=== PATIENT | male | born 1990 | race Caucasian/White ===

== ENCOUNTER 2021-01-10 16:33 | Inpatient (IN) | payer SELFPAY ==
[2021-01-10] VITALS (7 sets, daily range): BP systolic 128–150; BP diastolic 81–84; PULSE 109–144; RESP 16–24; TEMP 38.3–39.5; O2SAT 96–99; BMI 46.1
--- NOTE | 2021-01-10 16:55 | ED_ITS ---
HPI - Abdominal Pain General: Chief Complaint: Abdominal Pain Stated Complaint: ABDOMINAL PAIN Time Seen by Provider: 01/10/21 16:39 Source: patient Mode of arrival: ambulatory History of Present Illness: HPI narrative: 30-year-old male presenting with left-sided abdominal pain since 11 PM last night, associated with fever, chills, nausea. Over the course of the next 12 hours, the pain has migrated to his left upper quadrant and periumbilical area. He had a BM earlier today that contained bright red blood.. Is worse with any movement, better with staying still. He has not eaten or drank since this morning at 930. No previous diagnosis of diverticulosis or other disorders of the colon. Associated Symptoms: Reports fever(s), hematochezia and vomiting; Denies diarrhea and dysuria Review of Systems General: Reports: 10 or more systems reviewed and unremarkable except in HPI and below Const: Reports: fever(s), chills, body aches, change in appetite, fatigue and diaphoresis Eyes: Denies: change in vision, blurry vision or blind spots ENMT: Denies: odynophagia or hoarseness Card: Denies: chest pain, palpitations or irregular heart rhythm Resp: Reports: pain on inspiration; Denies: dyspnea, productive cough or wheezing GI: Reports: abdominal pain, nausea, vomiting and hematochezia; Denies: diarrhea : Denies: difficulty urinating, dysuria, urinary frequency or urinary u rgency Musc: Reports: back pain Skin/Breast: Denies: rash, pruritus or erythema Neuro: Denies: headache(s), numbness in extremities or weakness in extremities Endo: Denies: polyuria or polydipsia Efra/Lymph: Denies: easy bruising or easy bleeding [facility] ED PFSH: Social History Smoking and tobacco status: former smoker Alcohol intake: current Alcohol intake frequency: few times a month Substance/Drug Use: never Physical Exam Const: COMMON NORMALS: patient oriented x3 GENERAL APPEARANCE: cooperative, in distress and ill appearing NUTRITIONAL APPEARANCE: obese HENMT: COMMON NORMALS: normocephalic and hearing grossly normal bilaterally HEAD & SCALP: normocephalic FACE & SINUS: normal facial exam and face symmetric Eye: COMMON NORMALS: Equal, round and reactive pupils present, EOMs intact bilaterally, conjunctivae normal and no scleral icterus CONJUNCTIVA: Yes co njunctivae normal PUPIL: Yes Equal, round and reactive pupils present Neck/C-Spine: COMMON NORMALS: full ROM, no lymphadenopathy and supple Chest: COMMONS NORMALS: normal inspection of the chest and normal palpation of entire chest wall Resp: COMMON NORMALS: clear to auscultation bilaterally EFFORT & INSPECTION: Yes able to speak in complete sentences, Yes abnormal respiratory pattern and Yes labored (Abdominal pain with breathing) AUSCULTATION: clear to auscultation bilaterally Cardio: COMMON NORMALS: regular rate, S1 normal heart sound present and S2 normal heart sound present RATE: regular rate and tachycardic HEART SOUNDS: S1 normal heart sound present and S2 normal heart sound present GI: COMMON NORMALS: Soft to palpation AUSCULTATION: Yes Hypoactive bowel sounds present PALPATION: Yes Soft to palpation, Yes Tenderness to palpation present (GI) (Generalized) Details: LLQ and LUQ, Yes Guarding due to palpation present (GI), No Rigid due to palpation, No Hernia present, No Ascites present, No Abdominal wall crepitus present, No Carnett's sign positive and Yes Rebound tenderness present Details: periumbilical and diffuse Extremity: GENERAL: Yes normal exam except as noted Neuro: COMMON NORMALS: patient oriented x3, CN's II-XII intact bilaterally, moves all extremities and no focal motor deficits Skin: COMMON NORMALS: no rashes or lesions noted, no wounds, turgor normal and no jaundice GENERAL SKIN EXAM: no rashes or lesions noted and turgor normal Course Vital Signs: Vital signs: Vital Signs Temperature 103.1 F H 01/11/21 00:21 Pulse Rate 125 H 01/11/21 00:21 Respiratory Rate 22 H 01/11/21 00:24 Blood Pressure 111/74 01/11/21 00:21 Pulse Oximetry 92 01/11/21 00:21 MDM - Abdominal Pain MDM Narrative: Medical decision making narrative: 30-year-old male with worsening abdominal pain since 11 PM last night, with fever, nausea and vomiting. Acute peritoneal signs on exam. CT shows inflammatory changes and small volume extraluminal gas in the retroperitoneum on the left, suspected causes perforated descending colonic diverticulosis. No abscess. Broad-spectrum antibiotics?Zosyn and Flagyl, IV fluid resuscitation, analgesia, General surgery consulted?Dr. Velez will admit to his service for continued IV antibiotics and monitoring. No definite surgical intervention planned at this point. Differential Diagnosis: Differential diagnosis abdominal pain: Likely ab dominal pain, acute appendicitis, diverticulitis, gastroenteritis, pancreatitis and small bowel obstruction Lab Data: Labs: Lab Results 01/10/21 01/10/21 01/10/21 Range/Units 17:50 17:50 17:50 WBC 11.5 H (4.0-10.0) 10^3/ uL RBC 4.32 (4.1-5.3) 10^6/u L Hgb 14.4 (11.7-16.6) g/dL Hct 43.4 (42.0-52.0) % MCV 100.5 H (80-94) fL MCH 33.3 (28.0-34.0) pg MCHC 33.2 (30.0-36.0) g/dL RDW 15.8 H (12.1-15.1) % Plt Count 152 (130-400) 10^3/c mm MPV 10.0 (7.4-10.4) fL Neut % (Auto) 92.2 % Lymph % (Auto) 3.8 % Beadle % (Auto) 3.3 % Eos % (Auto) 0.1 % Baso % (Auto) 0.2 % Neut # (Auto) 10.59 H (1.8-7.7) 10^3/u L Lymph # (Auto) 0.4 L (0.8-4.8) 10^3/u L Beadle # (Auto) 0.4 (0.2-0.9) 10^3/u L Eos # (Auto) 0.0 (0.0-0.8) 10^3/u L Baso # (Auto) 0.0 (0.0-0.1) 10^3/u L Nucleated RBC % (a uto) 0 % Nucleated RBCs # 0.0 /100WBC PT 14.40 (12.1-14.9) SECO NDS INR 1.09 (0.8-1.2) APTT 27.2 (23.9-36.7) SECO NDS Sodium 134 L (136-145) mmol/L Potassium 3.8 (3.5-5.1) mmol/L Chloride 98 (98-107) mmol/L Carbon Dioxide 25 (22-29) mmol/L Anion Gap 14.8 (5-19) BUN 6 (6-20) mg/dL Creatinine 0.7 (0.7-1.2) mg/dL GFR Calculation 130.7 H (90-130) mL/min Glucose 158 H (65-115) mg/dL Calculated Osmolal ity 279 L (285-295) mOsm/k g Calcium 8.4 L (8.5-10.5) mg/dL Total Bilirubin 0.7 (0.15-1.2) mg/dL AST 32 (0-40) U/L ALT 45 H (0-41) U/L Alkaline Phosphata se 51 (40-130) IU/L C-Reactive Protein 131.6 H (0.0-4.9) mg/L Total Protein 6.7 (6.6-8.7) g/dL Albumin 3.9 (3.5-5.2) g/dL Globulin 2.8 (1.3-4.6) g/dL Discharge Plan Discharge Patient Disposition: Admitted As Inpatient Admit Provider: Jake Velez Clinical Impression: Peritonitis, acute generalized Diverticulitis of colon with perforation Qualifiers: Diverticulitis bleeding: unspecified bleeding status Qualified Code(s): K57.20 - Diverticulitis of large intestine with perforation and abscess without bleeding Condition: Stable Coding Level of Care Code 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
--- NOTE | 2021-01-10 16:56 | PC.NURSE ---
Read and agree with assessment
--- NOTE | 2021-01-10 17:21 | CTR_ITS ---
PROCEDURE INFORMATION: Exam: CT Abdomen And Pelvis With Contrast Exam date and time: 01/10/2021 5:49 PM Age: 30 years old Clinical indication: Abdominal pain; Prior surgery; Surgery type: Appy; Additional info: Llq and suprapubic pain x1 day, n/v, fever TECHNIQUE: Imaging protocol: Computed tomography of the abdomen and pelvis with contrast. Radiation optimization: All CT scans at this facility use at least one of these dose optimization techniques: automated exposure control; mA and/or kV adjustment per patient size (includes targeted exams where dose is matched to clinical indication); or iterative reconstruction. Contrast material: OMNI 300; Contrast volume: 95 ml; Contrast route: INTRAVENOUS (IV); COMPARISON: No relevant prior studies available. RADIATION DOSE METRICS: Total DLP (mGy-cm): 1981.38 FINDINGS: Lungs: Lung bases are clear. Liver: The liver is normal. Gallbladder and bile ducts: The gallbladder is normal. There is no biliary dilation. Pancreas: The pancreas is unremarkable. Spleen: The spleen is unremarkable. Adrenal glands: The adrenal glands are unremarkable. Kidneys and ureters: The kidneys are unremarkable. No hydronephrosis or stones. No ureteral dilation. Stomach and bowel: The stomach is unremarkable. The small bowel is nondilated. The colon is largely decompressed. There is mild diverticulosis of the distal descending and sigmoid colon. There may be focal diverticulitis in the mid descending colon (see axial series 2, image 52, coronal series 602, image 52, sagittal series 601, image 26). The stomach is unremarkable. The small bowel is nondilated. Appendix: The appendix is absent. Intraperitoneal space: There is no free air or significant intraperitoneal free fluid. Retroperitoneal space: There is edema, fascial thickening and trace extraluminal gas in the retroperitoneal space on the left involving the pericolic gutter and perirenal fascia. There is a descending colonic diverticulum with surrounding edema adjacent to the site of retroperitoneal gas suggesting possible diverticular rupture as its origin. There is no fluid collection to suggest abscess. Vasculature: The aorta is unremarkable. There is no aneurysm. The portal, splenic and superior mesenteric veins are patent. Lymph nodes: Unremarkable. No enlarged lymph nodes. Urinary bladder: The urinary bladder is unremarkable. Reproductive: The prostate and seminal vesicles are unremarkable. Bones/joints: The lumbar spine is unremarkable. There is mild degenerative disease of both hips. The pelvis and proximal femora are intact. Soft tissues: The abdominal wall is intact. CT/CT abdomen pelvis w con* [id number] IMPRESSION: 1. Inflammatory changes and small volume extraluminal gas in the retroperitoneum on the left. The suspected cause is perforated descending colonic diverticulosis, although the findings are not definitive. 2. No abscess. Radiation Dose CTDIVOL = (mGy): DLP = 1981.38 (mGy-cm)
[2021-01-10] MEDS: iohexol 300 mg/mL 100 mL Btl IV (17:53)
[2021-01-10 17:55] LABS: Basophils % 0.2 %; Eosinophils % 0.1 %; Hematocrit 43.4 % (42.0-52.0); Hemoglobin 14.4 g/dL (11.7-16.6); Lymphocytes # 0.4 10^3/uL (0.8-4.8); Lymphocytes % 3.8 %; Mean Corpuscular HGB Conc 33.2 g/dL (30.0-36.0); Mean Corpuscular Hemoglobin 33.3 pg (28.0-34.0); Mean Corpuscular Volume 100.5 fL (80-94); Monocytes # 0.4 10^3/uL (0.2-0.9); Monocytes % 3.3 %; Neutrophils # 10.59 10^3/uL (1.8-7.7); Neutrophils % 92.2 %; Nucleated Red Blood Cells % 0 %; Platelet Count 152 10^3/cmm (130-400); Red Blood Count 4.32 10^6/uL (4.1-5.3); Red Cell Distribution Width 15.8 % (12.1-15.1); White Blood Count 11.5 10^3/uL (4.0-10.0)
[2021-01-10 18:11] LABS: INR 1.09 (0.8-1.2)
[2021-01-10 18:12] LABS: Partial Thromboplastin Time 27.2 SECONDS (23.9-36.7)
[2021-01-10 18:16] LABS: Alanine Aminotransferase 45 U/L (0-41); Albumin Level 3.9 g/dL (3.5-5.2); Alkaline Phosphatase 51 IU/L (40-130); Anion Gap 14.8 (5-19); Aspartate Amino Transferase 32 U/L (0-40); Blood Urea Nitrogen 6 mg/dL (6-20); Calcium 8.4 mg/dL (8.5-10.5); Carbon Dioxide 25 mmol/L (22-29); Chloride 98 mmol/L (98-107); Globulin 2.8 g/dL (1.3-4.6); Glomerular Filtration Rate 130.7 mL/min (90-130); Glucose 158 mg/dL (65-115); Osmolality Calculated 279 mOsm/kg (285-295); Potassium 3.8 mmol/L (3.5-5.1); Sodium 134 mmol/L (136-145); Total Bilirubin 0.7 mg/dL (0.15-1.2); Total Protein 6.7 g/dL (6.6-8.7)
[2021-01-10] MEDS: sodium chloride 0.9% 1,000 ML 999 ML IV ×2 (18:30)
[2021-01-10] MEDS: fentaNYL 50 mcg/mL INJ 2mL 150 MCG IVP (18:35)
[2021-01-10] MEDS: ondansetron 2 mg/ML SDV 2 mL 4 MG IVP (18:43)
--- NOTE | 2021-01-10 18:44 | PM.HP ---
Providers/Chief Complaint Admitting Physician: Jake Velez MD Chief Complaint: ABDOMINAL PAIN History of Present Illness Mr. Deepak Meyers is a pleasant 30 year old male with history of morbid obesity with BMI 46.2 and weighs 350 pounds. Patient started to encounter left-sided abdominal pain around 11 PM yesterday and had reported history of blood in stool, with association of low-grade temperature and chills. Pain describes it more as sharp and has been more on the left side and towards the suprapubic and right lower quadrant. And left flank. As the pain got worse presented to the emergency department of [facility] where blood work showed leukocytosis and a CT scan of the abdomen and pelvis was done that showed findings below: Lungs: Lung bases are clear. Liver: The liver is normal. Gallbladder and bile ducts: The gallbladder is normal. There is no biliary dilation. Pancreas: The pancreas is unremarkable. Spleen: The spleen is unremarkable. Adrenal glands: The adrenal glands are unremarkable. Kidneys and ureters: The kidneys are unremarkable. No hydronephrosis or stones. No ureteral dilation. Stomach and bowel: The stomach is unremarkable. The small bowel is nondilated. The colon is largely decompressed. There is mild diverticulosis of the distal descending and sigmoid colon. There may be focal diverticulitis in the mid descending colon (see axial series 2, image 52, coronal series 602, image 52, sagittal series 601, image 26). The stomach is unremarkable. The small bowel is nondilated. Appendix: The appendix is absent. Intraperitoneal space: There is no free air or significant intraperitoneal free fluid. Retroperitoneal space: There is edema, fascial thickening and trace extraluminal gas in the retroperitoneal space on the left involving the pericolic gutter and perirenal fascia. There is a descending colonic diverticulum with surrounding edema adjacent to the site of retroperitoneal gas suggesting possible diverticular rupture as its origin. There is no fluid collection to suggest abscess. Vasculature: The aorta is unremarkable. There is no aneurysm. The portal, splenic and superior mesenteric veins are patent. Lymph nodes: Unremarkable. No enlarged lymph nodes. Urinary bladder: The urinary bladder is unremarkable. Reproductive: The prostate and seminal vesicles are unremarkable. Bones/joints: The lumbar spine is unremarkable. There is mild degenerative disease of both hips. The pelvis and proximal femora are intact. Soft tissues: The abdominal wall is intact. CT/CT abdomen pelvis w con* [id number] IMPRESSION: 1. Inflammatory changes and small volume extraluminal gas in the retroperitoneum on the left. The suspected cause is perforated descending colonic diverticulosis, although the findings are not definitive. 2. No abscess. Patient reports no history of colonoscopy before and he does have history of chronic constipation but sometimes he gets bouts of diarrhea, last time he had a bowel movement and passed gas was about a day or so ago. She denies any nausea or vomiting at this point General surgery was consulted for further evaluation Patient was examined and evaluated in room #4 in the emergency depart Review of Systems General: Reports: 10 or more systems reviewed and unremarkable except in HPI and below Medications/Allergies Home Medications Medication Instructions Recorded Confirmed Last Taken Type acetaminophen [Tylenol Extra 1,000 mg PO PRN 01/10/21 01/10/21 01/10/21 09:00 History Strength] albuterol sulfate [ProAir HFA] 2 puff INHALATION Q4H PRN 01/10/21 01/10/21 Unknown History aspirin 325 mg PO PRN 01/10/21 01/10/21 Unknown History Allergies Allergy/AdvReac Type Severity Reaction Status Date / Time beans Allergy ALGY-Anaphy Uncoded 01/10/21 18:46 laxis PFSH Acute PFSH: Social History Smoking and tobacco status: former smoker Alcohol intake: current Alcohol intake frequency: few times a month Substance/Drug Use: never Vitals/I&O/Wt Last Vital Signs Temp 100.9 F H 01/10/21 16:37 Pulse 110 H 01/10/21 16:51 Resp 24 H 01/10/21 18:35 BP 150/84 01/10/21 16:51 Pulse Ox 99 01/10/21 16:51 Weight last 48 hrs Weight 350 lb Physical Exam Narrative: EXAM NARRATIVE: Patient is conscious alert oriented X3 BMI 46.2 Head and neck examination PERRLA no masses no cervical lymphadenopathy no jaundice Cardiac examination audible S1-S2 no murmurs no gallops no arrhythmias Chest is clear bilateral,abscence of Rhonchi or wheezes,no surgical emphysema Abdomen tenderness towards the left side of the abdomen and the suprapubic area and right lower quadrant in addition to the left flank. Patient demonstrates picture of peritonism. Morbidly obese Extremities no cyanosis no clubbing no edema Data : 01/11/21 02:05 01/11/21 02:05 A&P Assessment and plan (1) Diverticulitis of colon with perforation: After thorough history physical examination reviewing the chart and images with my personal interpretation, current condition reflects a contained perforation of one of the diverticular pockets of the descending colon and contained at the retroperitoneal compartment. we will plan to have the patient on n.p.o. status IV fluid in the form of LR 150 mL/h Zosyn and Flagyl IV repeated physical examination Repeat labs in the morning Telemetry Strict I's and O's Pharmacologic DVT prophylaxis in the form of Lovenox 40 mg subcutaneous daily At this point patient should benefit from the broad-spectrum antibiotics and conservative measures likely a contained perforation due to perforated descending colon diverticulitis. Assurance and education All questions have been answered and all concerns have been addressed to patient's satisfaction. Status: Acute Qualifiers: Diverticulitis bleeding: unspecified bleeding status Qualified Code(s): K57.20 - Diverticulitis of large intestine with perforation and abscess without bleeding Attestations Medical Necessity Statement*: Inpatient hospitalization for parenteral antimicrobial therapy and pain control with repeated physical examination Time Spent in Patient Care: (>than 50% of time spent in counselling and/or direct pt care on unit). 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
[2021-01-10 18:47] LABS: C Reactive Protein 131.6 mg/L (0.0-4.9)
[2021-01-10] MEDS: piperacillin-tazobactam 4.5 GM in sodium chloride 0.9% (plus) 50 ML IV (18:50)
[2021-01-10] MEDS: metroNIDAZOLE IV 500 MG/100 ML PREMIX 100 MG IV (19:42)
[2021-01-10] MEDS: enoxaparin 40 mg/0.4 mL Syringe SUBCUT (19:50)
[2021-01-10 19:51] LABS: Lactate (Lactic Acid level) 2.2 mmol/L (0.5-2.2)
[2021-01-10] MEDS: lactated ringers 1,000 ML 150 ML IV (21:43)
[2021-01-10] MEDS: morphine 4 mg/mL SDV 1 mL 2 MG IVP (21:44)
[2021-01-10] MEDS: acetaminophen 325 mg Tablet 650 MG PO (21:45)
[2021-01-10 22:07] LABS: Add Urine Microscopic? NO
[2021-01-10] MEDS: HYDROmorphone 1 mg/mL INJ 1 mL IVP (22:20)
[2021-01-10 22:30] LABS: Bilirubin Urine Neg (Negative); Blood Urine Neg (Negative); Glucose Urine UA Norm (Normal); Ketones Urine 1+ (Negative); Leukocyte Esterase Urine Negative (Negative); Nitrate Urine Negative (Negative); Protein Urine Neg (Negative); Urine Appearance Clear (CLEAR); Urine Color Yellow (Yellow); Urobilinogen Urine Norm (Negative); pH Urine 5 (5-7)
[2021-01-11] VITALS (20 sets, daily range): BP systolic 101–134; BP diastolic 70–86; PULSE 97–130; RESP 16–22; TEMP 36.6–39.5; O2SAT 92–96
[2021-01-11] MEDS: HYDROmorphone 1 mg/mL INJ 1 mL IVP ×9 (00:24→22:25)
[2021-01-11] MEDS: metroNIDAZOLE IV 500 MG/100 ML PREMIX 100 MG IV ×4 (00:27→18:15)
[2021-01-11 02:19] LABS: Basophils % 0.3 %; Eosinophils % 0.1 %; Hematocrit 41.3 % (42.0-52.0); Hemoglobin 13.7 g/dL (11.7-16.6); Lymphocytes # 0.5 10^3/uL (0.8-4.8); Lymphocytes % 5.8 %; Mean Corpuscular HGB Conc 33.2 g/dL (30.0-36.0); Mean Corpuscular Volume 99.5 fL (80-94); Mean Platelet Volume 10.3 fL (7.4-10.4); Monocytes # 0.5 10^3/uL (0.2-0.9); Monocytes % 6.7 %; Neutrophils % 86.8 %; Nucleated Red Blood Cells % 0 %; Platelet Count 130 10^3/cmm (130-400); Red Blood Count 4.15 10^6/uL (4.1-5.3); White Blood Count 7.9 10^3/uL (4.0-10.0)
[2021-01-11 02:34] LABS: Alanine Aminotransferase 35 U/L (0-41); Albumin Level 3.5 g/dL (3.5-5.2); Alkaline Phosphatase 39 IU/L (40-130); Anion Gap 14.3 (5-19); Aspartate Amino Transferase 21 U/L (0-40); Blood Urea Nitrogen 8 mg/dL (6-20); Calcium 8.3 mg/dL (8.5-10.5); Carbon Dioxide 25 mmol/L (22-29); Chloride 97 mmol/L (98-107); Globulin 2.8 g/dL (1.3-4.6); Glomerular Filtration Rate 97.8 mL/min (90-130); Glucose 129 mg/dL (65-115); Osmolality Calculated 276 mOsm/kg (285-295); Potassium 3.3 mmol/L (3.5-5.1); Sodium 133 mmol/L (136-145); Total Bilirubin 0.7 mg/dL (0.15-1.2); Total Protein 6.3 g/dL (6.6-8.7)
[2021-01-11 02:35] LABS: Lactate (Lactic Acid level) 1.7 mmol/L (0.5-2.2)
[2021-01-11] MEDS: piperacillin-tazobactam 3.375 GM in sodium chloride 0.9% (plus) 50 ML IV (02:57)
[2021-01-11] MEDS: ondansetron 2 mg/ML SDV 2 mL 4 MG IVP (03:00)
[2021-01-11] MEDS: lactated ringers 1,000 ML 150 ML IV ×3 (05:27→18:14)
[2021-01-11] MEDS: lactated ringers 1,000 ML 999 ML IV (06:17)
--- NOTE | 2021-01-11 06:17 | PM.PN ---
Subjective Subjective: Interval history: Patient feels better since the index episode of pain 30 hours ago and responding slowly to IV fluid resuscitation and parenteral antimicrobial therapy. Maintaining marginal urine output and having loose nonbloody diarrheal stools. Spiked a temperature of 103 and blood cultures were sent patient reports that his baseline heart rate runs between 90 and 100 per his primary care provider and he does monitor that at home but there is no medications being prescribed for him. Normalization of lactic acid 1.7 and trending down of leukocytosis with normalization to 7.9 Vitals/I&O/Wt Last Vital Signs Temp 100.9 F H 01/11/21 03:45 Pulse 125 H 01/11/21 03:45 Resp 18 01/11/21 05:29 BP 106/74 01/11/21 03:45 Pulse Ox 94 01/11/21 03:45 01/10/21 01/10/21 01/11/21 14:59 22:59 06:59 Intake Total 2270 / 2270 1340 / 3610 Output Total 0 / 0 275 / 275 Balance 2270 / 2270 1065 / 3335 Weight last 48 hrs Weight 350 lb Physical Exam Narrative: EXAM NARRATIVE: Patient is conscious alert oriented X3 BMI 46.2 Head and neck examination PERRLA no masses no cervical lymphadenopathy no jaundice Cardiac examination audible S1-S2 no murmurs no gallops no arrhythmias Chest is clear bilateral,abscence of Rhonchi or wheezes,no surgical emphysema Abdomen tenderness towards the left side of the abdomen and less toward suprapubic area and right lower quadrant in addition to the left flank. Morbidly obese Extremities no cyanosis no clubbing no edema Data : 01/11/21 02:05 01/11/21 02:05 Micro: Microbiology 01/10/21 22:15 Blood Culture - Preliminary Blood SPECIMEN COLLECTED 01/10/21 17:55 Blood Culture - Preliminary Blood SPECIMEN COLLECTED A&P Assessment and plan (1) Diverticulitis of colon with perforation: Continue n.p.o. status with ice chips bolus of LR 1 L IV fluid in the form of LR 150 mL/h Zosyn 4.5 g every 8 hours and Flagyl IV 500 mL every 6 hours repeated physical examination monitor blood work continue telemetry Strict I's and O's continue pharmacologic DVT prophylaxis in the form of Lovenox 40 mg subcutaneous daily resume albuterol 2 puff inhalation every 4 hours as needed Assurance and education All questions have been answered and all concerns have been addressed to patient's satisfaction. Status: Acute Qualifiers: Diverticulitis bleeding: unspecified bleeding status Qualified Code(s): K57.20 - Diverticulitis of large intestine with perforation and abscess without bleeding Attestations Medical Necessity Statement*: Continue inpatient hospitalization for parenteral antimicrobial therapy and repeated physical examination and blood work. 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
[2021-01-11] MEDS: LORazepam 0.5 mg Tablet PO ×4 (10:36→22:26)
[2021-01-11] MEDS: piperacillin-tazobactam 4.5 GM in sodium chloride 0.9% (plus) 50 ML IV ×2 (10:37→18:16)
--- NOTE | 2021-01-11 14:10 | PC.CHAP ---
Pastoral Care Encounter/Spiritual Assessment Type of Contact [] Declined convex grinder operator visit [] Patient/Family/Request visit [] Outpatient visit [] Follow-up visit [] Physician referral [] Code/Alert [xx] Routine visit [] Staff referral [] Actively dying [] Patient sleeping [] Family support [] [] Out of room [] Palliative care [] [] Receiving care in room [] Pre-surgical visit [] Trauma [] Long length of stay [] ICU visit [] Other: Relational/Emotional Strength [xx] Patient feels connected with others/family/visitors/staff [] Distress [] Loneliness/isolation [] Abandonment Spirituality of Patient [xx] Person of Laura [] Attends Oriental Orthodox of their Laura [xx] Believes in Prayer [xx] Reads Bible or Faith materials [] There are Spiritual issues to be addressed Pc Maintenance Technician Interventions [xx] Prayer [xx] Active listening [xx] Non-anxious presence [] Spiritual/emotional support [] Crisis/trauma care [] Spiritual counseling [] Bereavement support [] Provided bereavement packet [xx] Provided Bible/devotional materials [] Provided toy/stuffed animal, coloring book to patient or family member [] Provided Communion [] Anointing/[place] [] Salvation [xx] Completed spiritual assessment [] Other: Impact on Illness or Injury [] Angry [xx] Fearful [xx] Anxious [] Often cries [] Exhaustion [] Unable to work [] Unable to attend sabianism [] Unable to walk/stand [] Unable to read [] Unable to drive [] Unable to eat/drink [] Unable to sleep [] Unable to be with family [] Patient intubated [] Other: Summary Patient is ffearful for 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 He is allso fearful that if surgery results in permanent colostomy that he will never get a girlfriend/ and have his own family. Patient acceptede [employer] devotional. Time spent with patient 10 minutes
[2021-01-11] MEDS: enoxaparin 40 mg/0.4 mL Syringe SUBCUT (20:00)
[2021-01-12] VITALS (17 sets, daily range): BP systolic 115–125; BP diastolic 66–71; PULSE 110–132; RESP 15–18; TEMP 36–38.7; O2SAT 92–96
[2021-01-12] MEDS: HYDROmorphone 1 mg/mL INJ 1 mL IVP ×9 (00:44→23:18)
[2021-01-12] MEDS: lactated ringers 1,000 ML 150 ML IV ×3 (02:11→17:48)
[2021-01-12] MEDS: metroNIDAZOLE IV 500 MG/100 ML PREMIX 100 MG IV ×4 (02:11→22:00)
[2021-01-12] MEDS: LORazepam 0.5 mg Tablet PO ×3 (02:20→21:02)
[2021-01-12] MEDS: piperacillin-tazobactam 4.5 GM in sodium chloride 0.9% (plus) 50 ML IV ×3 (02:21→20:56)
[2021-01-12] MEDS: acetaminophen 325 mg Tablet 650 MG PO (04:30)
[2021-01-12 05:34] LABS: Basophils % 0.4 %; Eosinophils % 0.3 %; Hematocrit 37.3 % (42.0-52.0); Hemoglobin 12.1 g/dL (11.7-16.6); Lymphocytes # 0.6 10^3/uL (0.8-4.8); Lymphocytes % 7.5 %; Mean Corpuscular HGB Conc 32.4 g/dL (30.0-36.0); Mean Corpuscular Hemoglobin 33.2 pg (28.0-34.0); Mean Corpuscular Volume 102.2 fL (80-94); Mean Platelet Volume 10.4 fL (7.4-10.4); Monocytes # 0.6 10^3/uL (0.2-0.9); Monocytes % 6.9 %; Neutrophils # 6.55 10^3/uL (1.8-7.7); Nucleated Red Blood Cells % 0 %; Platelet Count 126 10^3/cmm (130-400); Red Blood Count 3.65 10^6/uL (4.1-5.3); Red Cell Distribution Width 15.8 % (12.1-15.1)
[2021-01-12 06:11] LABS: Alanine Aminotransferase 20 U/L (0-41); Albumin Level 2.7 g/dL (3.5-5.2); Alkaline Phosphatase 44 IU/L (40-130); Anion Gap 11.6 (5-19); Aspartate Amino Transferase 12 U/L (0-40); Blood Urea Nitrogen 7 mg/dL (6-20); Carbon Dioxide 28 mmol/L (22-29); Chloride 95 mmol/L (98-107); Glucose 116 mg/dL (65-115); Osmolality Calculated 271 mOsm/kg (285-295); Potassium 3.6 mmol/L (3.5-5.1); Sodium 131 mmol/L (136-145); Total Bilirubin 0.5 mg/dL (0.15-1.2); Total Protein 5.7 g/dL (6.6-8.7)
[2021-01-12 06:12] LABS: Lactate (Lactic Acid level) 1.2 mmol/L (0.5-2.2)
--- NOTE | 2021-01-12 07:43 | PM.PN ---
Subjective Subjective: Interval history: Patient overall feels better and started to have his appetite back. Continues to pass gas and having nonbloody loose stools .Describes his pain is more towards the left side and not generalized as it used to be.No acute events overnight. Adequate urine output. Medications: Reviewed: Yes Vitals/I&O/Wt Last Vital Signs Temp 97.6 F 01/12/21 07:00 Pulse 117 H 01/12/21 07:00 Resp 18 01/12/21 07:00 BP 115/68 01/12/21 07:00 Pulse Ox 94 01/12/21 07:00 01/11/21 01/12/21 01/12/21 22:59 06:59 14:59 Intake Total 1250 / 3182.5 1510 / 4692.5 Output Total 450 / 650 300 / 950 Balance 800 / 2532.5 1210 / 3742.5 Weight last 48 hrs Weight 350 lb Physical Exam Narrative: EXAM NARRATIVE: Patient is conscious alert oriented X3 BMI 46.2 Head and neck examination PERRLA no masses no cervical lymphadenopathy no jaundice Cardiac examination audible S1-S2 no murmurs no gallops no arrhythmias Chest is clear bilateral,abscence of Rhonchi or wheezes,no surgical emphysema Abdomen much less tenderness towards the left side of the abdomen, no appreciated tenderness of the other abdominal compartments. Morbidly obese Extremities no cyanosis no clubbing no edema Data : 01/12/21 05:14 01/12/21 05:14 Micro: Microbiology 01/10/21 17:55 Blood Culture - Preliminary Blood NEGATIVE TO DATE 01/10/21 22:15 Blood Culture - Preliminary Blood NEGATIVE TO DATE A&P Assessment and plan (1) Diverticulitis of colon with perforation: We will start the patient slowly on clear liquid diet We will continue IV fluid in the form of LR 150 mL/h Continue Zosyn 4.5 g every 8 hours and Flagyl IV 500 mL every 6 hours repeated physical examination monitor blood work continue telemetry Strict I's and O's continue pharmacologic DVT prophylaxis in the form of Lovenox 40 mg subcutaneous daily resume albuterol 2 puff inhalation every 4 hours as needed Encourage ambulation Assurance and education All questions have been answered and all concerns have been addressed to patient's satisfaction. Status: Acute Qualifiers: Diverticulitis bleeding: unspecified bleeding status Qualified Code(s): K57.20 - Diverticulitis of large intestine with perforation and abscess without bleeding Attestations Medical Necessity Statement*: Patient will require to continue inpatient hospitalization for parenteral antimicrobial therapy and repeated physical examination and with appropriate clinical monitoring of patient's progress. Time Spent in Patient Care: (>than 50% of time spent in counselling and/or direct pt care on unit). 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
[2021-01-12] MEDS: ondansetron 2 mg/ML SDV 2 mL 4 MG IVP ×2 (09:25→20:28)
[2021-01-12] MEDS: HYDROcodone-acetaminophen 5-325 mg Tablet 1 TAB PO ×2 (13:41→20:25)
[2021-01-12] MEDS: enoxaparin 40 mg/0.4 mL Syringe SUBCUT (20:25)
[2021-01-13] VITALS (20 sets, daily range): BP systolic 107–134; BP diastolic 66–85; PULSE 110–135; RESP 16–20; TEMP 36.1–38.6; O2SAT 91–94
[2021-01-13] MEDS: HYDROmorphone 1 mg/mL INJ 1 mL IVP ×6 (01:16→17:17)
[2021-01-13] MEDS: metroNIDAZOLE IV 500 MG/100 ML PREMIX 100 MG IV ×2 (04:44→11:24)
[2021-01-13] MEDS: lactated ringers 1,000 ML 150 ML IV ×2 (04:44→14:33)
[2021-01-13] MEDS: acetaminophen 325 mg Tablet 650 MG PO (04:44)
[2021-01-13] MEDS: piperacillin-tazobactam 4.5 GM in sodium chloride 0.9% (plus) 50 ML IV ×2 (05:53→14:18)
--- NOTE | 2021-01-13 06:09 | ECG_ITS ---
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 Measurements Intervals [place] Rate: 110 P: 53 NE: 176 QRS: 58 QRSD: 98 T: 49 QT: 325 QTc: 440 Interpretive Statements SINUS TACHYCARDIA ABNORMAL RHYTHM ECG No previous ECG available for comparison Electronically Signed On 01-13-2021 22:47:46 CDT by Jack Wallace M.D. [email or web address]
--- NOTE | 2021-01-13 06:57 | P.PN_ITS ---
Subjective Subjective: Interval history: Patient describes the pain is more localized towards the left flank and left lower abdomen. Still continues to run fevers and tachycardic. Yet continues to have good urine output. Started clear liquid diet yesterday but had some nausea so we will switch back to n.p.o. with ice chips Medications: Reviewed: Yes Vitals/I&O/Wt Last Vital Signs Temp 101.4 F H 01/13/21 04:43 Pulse 125 H 01/13/21 04:00 Resp 20 H 01/13/21 04:46 BP 107/66 01/13/21 04:00 Pulse Ox 94 01/13/21 04:00 01/12/21 01/12/21 01/13/21 14:59 22:59 07:59 Intake Total 2410 / 2410 1870 / 4280 1250 / 5530 Output Total 1400 / 1400 450 / 1850 Balance 2410 / 2410 470 / 2880 800 / 3680 Physical Exam Narrative: EXAM NARRATIVE: Patient is conscious alert oriented X3 BMI 46.2 Head and neck examination PERRLA no masses no cervical lymphadenopathy no jaundice Cardiac examination audible S1-S2 no murmurs no gallops no arrhythmias Chest is clear bilateral,abscence of Rhonchi or wheezes,no surgical emphysema Abdomen more localized tenderness towards the left lower side of the abdomen and left flank with some erythema noticed at the left side of the abdomen and flank of the skin. Morbidly obese Extremities no cyanosis no clubbing no edema Data : 01/13/21 06:34 01/13/21 06:34 A&P Assessment and plan (1) Diverticulitis of colon with perforation: We will repeat the CT scan of the abdomen and pelvis with IV contrast to compare and to rule out potential underlying abscess formation. We switch IV fluids to D5 and half normal +20 KCl at 125 Continue Zosyn 4.5 g every 8 hours and Flagyl IV 500 mL every 6 hours repeated physical examination monitor blood work continue telemetry Strict I's and O's continue pharmacologic DVT prophylaxis in the form of Lovenox 40 mg subcutaneous daily resume albuterol 2 puff inhalation every 4 hours as needed Encourage ambulation Assurance and education All questions have been answered and all concerns have been addressed to patient's satisfaction. Status: Acute Qualifiers: Diverticulitis bleeding: unspecified bleeding status Qualified Code(s): K57.20 - Diverticulitis of large intestine with perforation and abscess without bleeding Attestations Medical Necessity Statement*: Continue inpatient hospitalization and continue IV fluid and IV antibiotics Time Spent in Patient Care: 16 - 35 minutes (>than 50% of time spent in counselling and/or direct pt care on unit) . 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
--- NOTE | 2021-01-13 06:59 | CTR_ITS ---
PROCEDURE INFORMATION: Exam: CT Abdomen And Pelvis With Contrast Exam date and time: 01/13/2021 7:16 AM Age: 30 years old Clinical indication: Abdominal pain; Tenderness; Left; Additional info: Left-sided abdominal pain TECHNIQUE: Imaging protocol: Computed tomography of the abdomen and pelvis with contrast. Radiation optimization: All CT scans at this facility use at least one of these dose optimization techniques: automated exposure control; mA and/or kV adjustment per patient size (includes targeted exams where dose is matched to clinical indication); or iterative reconstruction. Contrast material: OMNIPAQUE 300; Contrast volume: 95 ml; Contrast route: INTRAVENOUS (IV); COMPARISON: CT abdomen pelvis w con* [id number] 01/10/2021 6:06 PM RADIATION DOSE METRICS: Total DLP (mGy-cm): 1892.9 FINDINGS: Pleural spaces: There is a small left pleural effusion with left basilar atelectasis. Liver: Normal. No mass. Gallbladder and bile ducts: Normal. No calcified stones. No ductal dilation. Pancreas: Normal. No ductal dilation. Spleen: Normal. No splenomegaly. Adrenal glands: Normal. No mass. Kidneys and ureters: Normal. No hydronephrosis. Stomach and bowel: There is prominent inflammatory process adjacent to the proximal descending colon with prominent infiltration of the fat in the left pericolic gutter extending into the left anterior pararenal space of the retroperitoneum which extends down to the pelvis to the inguinal region. There is extensive extraluminal gas in the left pericolic gutter, left anterior pararenal space and left side of the mesentery and omentum. There is a small amount of extraluminal fluid. No discrete focal abscess collections are seen. The inflammatory changes in the amount of extraluminal gas has significantly worsened since the previous scan from 01/10/2021. This may be due to perforated diverticulitis. There is overlying thickening of the abdominal wall muscle and subcutaneous fat in the left flank consistent with cellulitis. Sigmoid diverticulosis. Appendix: No evidence of appendicitis. Intraperitoneal space: There is a prominent amount of retroperitoneal air and infiltration predominantly in the left anterior pararenal space and pericolic gutter extending inferiorly down the iliac region to the left inguinal canal. Vasculature: Unremarkable. No abdominal aortic aneurysm. Vasculature: Unremarkable. No abdominal aortic aneurysm. Lymph nodes: Unremarkable. No enlarged lymph nodes. Urinary bladder: Unremarkable as visualized. Reproductive: Unremarkable as visualized. Bones/joints: Unremarkable. No acute fracture. Soft tissues: There is subcutaneous cellulitis over the left flank. CT/CT abdomen pelvis w con* [id number] IMPRESSION: 1. Significant worsening of the inflammatory process in the left pericolic gutter with prominent increased infiltration of the retroperitoneal fat and amount of extraluminal gas. This is consistent with worsening inflammation from perforated diverticulitis is in the proximal descending colon. 2. There is subcutaneous swelling and abdominal wall muscle edema over the left flank consistent with cellulitis. 3. Sigmoid diverticulosis. Radiation Dose CTDIVOL = (mGy): DLP = 1892.9 (mGy-cm)
[2021-01-13] MEDS: iohexol 300 mg/mL 100 mL Btl IV (07:27)
[2021-01-13 07:54] LABS: Basophils % 0.5 %; Eosinophils # 0.1 10^3/uL (0.0-0.8); Eosinophils % 0.8 %; Hematocrit 35.3 % (42.0-52.0); Hemoglobin 11.5 g/dL (11.7-16.6); Lymphocytes # 0.7 10^3/uL (0.8-4.8); Lymphocytes % 8.1 %; Mean Corpuscular HGB Conc 32.6 g/dL (30.0-36.0); Mean Corpuscular Hemoglobin 32.9 pg (28.0-34.0); Mean Corpuscular Volume 100.9 fL (80-94); Mean Platelet Volume 10.5 fL (7.4-10.4); Monocytes % 11.8 %; Neutrophils # 6.65 10^3/uL (1.8-7.7); Nucleated Red Blood Cells % 0 %; Platelet Count 163 10^3/cmm (130-400); Red Cell Distribution Width 15.9 % (12.1-15.1); White Blood Count 8.5 10^3/uL (4.0-10.0)
[2021-01-13] MEDS: ondansetron 2 mg/ML SDV 2 mL 4 MG IVP ×2 (08:14→14:26)
[2021-01-13] MEDS: D5-NS 0.45% + KCL 20 mEq 20 MEQ/1,000 ML BAG 125 MEQ IV (08:18)
[2021-01-13 08:19] LABS: Anion Gap 12.5 (5-19); Blood Urea Nitrogen 6 mg/dL (6-20); Calcium 8.1 mg/dL (8.5-10.5); Carbon Dioxide 28 mmol/L (22-29); Chloride 96 mmol/L (98-107); Glomerular Filtration Rate 130.7 mL/min (90-130); Glucose 113 mg/dL (65-115); Osmolality Calculated 274 mOsm/kg (285-295); Potassium 3.5 mmol/L (3.5-5.1); Sodium 133 mmol/L (136-145)
[2021-01-13 09:00] LABS: Magnesium 1.9 mg/dL (1.7-2.3); Phosphorus 1.8 mg/dL (2.5-4.5)
[2021-01-13] MEDS: morphine 4 mg/mL SDV 1 mL 2 MG IVP ×3 (09:12→15:46)
[2021-01-13 11:21] LABS: Slide Review Slide Review Perform
[2021-01-13] MEDS: LORazepam 0.5 mg Tablet PO (11:34)
--- NOTE | 2021-01-13 11:35 | PC.NURSE ---
patient stated I am stressed and my anxiety is going, I can't stop thinking in reference to news that the physician gave him this morning about his progressing symptoms. this nurse gave the lorazepam at patients request.
--- NOTE | 2021-01-13 13:49 | P.CONIM_ITS ---
Providers/Reason For Consult Consulting Physican/Specialty*: Dr. Velez Reason for Consult*: Medical management Attending Physician: Jake Velez MD History of Present Illness History of Present Illness Deepak Meyers is a 30 year old male presents with mostly sharp abdominal pain for several days gradually worsening. It started on Thursday/ initially at the left lower quadrant and then started to radiate into the right lower quadrant and left flank. He has been having several episodes of fever and diaphoresis since then. He had one episode of hematochezia first day he started having abdominal pain. Reports that after that he has been having some diarrheal bowel movements but otherwise no evidence of blood or black stool. He was found to have evidence of perforated diverticulitis and peritonitis. He was started on Zosyn and Flagyl but despite antibiotic treatment gradually worsened. He now has some mild left-sided discoloration more suggestive of inflammation/edema then cellulitis on exam. Vancomycin was added. Would like to mention that patient reports tooth infection for the last 3 months. He denies any previous history of abdominal pain except when he had appendicitis long time ago. He never had a colonoscopy. He denies family history of inflammatory bowel disease or colon cancer. His father in his late 40s from lung cancer. He was a smoker. Patient does give a history of constipation off and on. Reports that occasionally he gets headaches for which he takes aspirin. Last time he took aspirin was approximately 1 week ago. He took 650 mg for headache. Patient also reports that occasionally he gets very sharp low back pain with last episode more than 8 months ago. He did not have any recent pain. Review of Systems Narrative: Except as mentioned in HPI. Const: Reports: fever(s) and chills Eyes: Denies: change in vision ENMT: Denies: throat pain or change in hearing Card: Denies: chest pain, edema or lightheadedness Resp: Reports: dyspnea (With ambulation and he thinks because of abdominal pain); Denies: productive cough GI: Denies: abdominal pain, nausea, vomiting, dysphagia, diarrhea, constipation, hematochezia or melena : Denies: difficulty urinating Musc: Denies: joint pain or joint swelling Skin/Breast: Denies: rash or erythema Neuro: Denies: headache(s) or weakness in extremities Psych: Denies: depression Efra/Lymph: Denies: easy bleeding or tender lymph nodes All/Imm: Denies: throat swelling Meds/Allergies Home Medications and Allergies Home Medications Medication Instructions Recorded Confirmed Last Taken Type acetaminophen [Tylenol Extra 1,000 mg PO PRN 01/10/21 01/10/21 01/10/21 09:00 History Strength] albuterol sulfate [ProAir HFA] 2 puff INHALATION Q4H PRN 01/10/21 01/10/21 Unknown History aspirin 325 mg PO PRN 01/10/21 01/10/21 Unknown History Allergies Allergy/AdvReac Type Severity Reaction Status Date / Time beans Allergy ALGY-Anaphy Uncoded 01/10/21 18:46 laxis Current Medications Current Medications Generic Name Dose Route Start Last Admin Trade Name Freq PRN Reason Stop Dose Admin Acetaminophen 650 mg 01/10/21 20:53 01/13/21 04:44 Acetaminophen 325 Mg Tablet PO 650 mg Q6H PRN Administration MILD PAIN Hydrocodone Bitart/Acetaminophen 1 tab 01/12/21 09:54 01/12/21 20:25 Hydrocodone-Acetaminophen 5-325 Mg Tablet PO 1 tab Q6H PRN Administration MODERATE TO SEVERE PAIN Enoxaparin Sodium 40 mg 01/10/21 20:00 01/12/21 20:25 Enoxaparin 40 Mg/0.4 Ml Syringe SUBCUT 40 mg Q24H VENKAT Administration Hydromorphone HCl 1 mg 01/10/21 18:49 01/13/21 11:05 Hydromorphone 1 Mg/Ml Inj 1 Ml IVP 1 mg Q2H PRN Administration PAIN Metronidazole 500 mg in 100 mls @ 100 mls/hr 01/11/21 01:00 01/13/21 11:24 Flagyl Iv IV 100 mls/hr Q6H VENKAT Administration Protocol Piperacillin Sod/Tazobactam 50 mls @ 12.5 mls/hr 01/11/21 11:00 01/13/21 11:39 Sod 4.5 gm/ Sodium Chloride IV Infused Q8H VENKAT Infusion Protocol Potassium Chloride/Dextrose/Sod Cl 20 meq in 1,000 mls @ 125 mls/hr 01/13/21 07:15 01/13/21 08:18 D5-Ns 0.45% + Kcl 20 Meq IV 125 mls/hr .Q8H VENKAT Administration Vancomycin HCl 2,000 mg/ 500 mls @ 250 mls/hr 01/13/21 12:00 01/13/21 12:00 Sodium Chloride IV 250 mls/hr Q12H VENKAT Administration Protocol Lorazepam 0.5 mg 01/11/21 10:20 01/13/21 11:34 Lorazepam 0.5 Mg Tablet PO 0.5 mg Q4H PRN Administration ANXIETY Morphine Sulfate 2 mg 01/10/21 20:53 01/13/21 12:22 Morphine 4 Mg/Ml Sdv 1 Ml IVP 2 mg Q2H PRN Administration SEVERE PAIN Ondansetron HCl 4 mg 01/10/21 18:50 01/13/21 08:14 Ondansetron 2 Mg/Ml Sdv 2 Ml IVP 4 mg Q6H PRN Administration NAUSEA AND VOMITING PFSH Acute PFSH: Medical History (Updated 01/13/21 @ 13:56 by Vladimir Parks MD) Asthma Morbid obesity with BMI of 45.0-49.9, adult Staphylococcal infection of skin Surgical History (Updated 01/13/21 @ 13:53 by Vladimir Parks MD) History of appendectomy Family History (Updated 01/13/21 @ 13:54 by Vladimir Parks MD) Father Cancer Lung cancer, smoker in his late 40s Mother No problems noted. Social History Smoking and tobacco status: former smoker Alcohol intake: current Alcohol intake frequency: few times a month Substance/Drug Use: never Vitals/I&O/Wt Last Vital Signs Temp 100.1 F H 01/13/21 11:44 Pulse 114 H 01/13/21 11:44 Resp 20 H 01/13/21 12:22 BP 121/77 01/13/21 11:44 Pulse Ox 94 01/13/21 11:44 01/12/21 01/13/21 01/13/21 21:59 06:59 14:59 Intake Total 570 / 570 Output Total 825 / 825 Balance -255 / -255 Physical Exam Const: COMMON NORMALS: no acute distress, patient oriented x3 and alert HENMT: COMMON NORMALS: normocephalic and atraumatic HEAD & SCALP: normocephalic and atraumatic Eye: COMMON NORMALS: EOMs intact bilaterally, conjunctivae normal and no scleral icterus CONJUNCTIVA: Yes conjunctivae normal Neck/C-Spine: COMMON NORMALS: no lymphadenopathy and no meningeal signs Lymph: LYMPHATIC: no lymphadenopathy noted Chest: COMMONS NORMALS: normal palpation of entire chest wall Resp: COMMON NORMALS: No use of accessory muscles and clear to auscultation bilaterally AUSCULTATION: clear to auscultation bilaterally Cardio: COMMON NORMALS: regular rate, regular rhythm and No murmurs present (Cardio) RATE: regular rate RHYTHM: regular rhythm OTHER: No lower extremity edema GI: INSPECTION: Yes Abdominal wall edema (Left side mostly flank.) Laterality: left AUSCULTATION: Yes Hypoactive bowel sounds present PALPATION: Yes Tenderness to palpation present (GI) (And left flank. Some tenderness throughout also appreciated.) Details: LLQ and LUQ, No Guarding due to palpation present (GI) (No significant guarding appreciated.) and Yes Rebound tenderness present RECTAL EXAM: Yes deferred Back/Pelvis: COMMON NORMALS: thoracic and lumbar spine normal to inspection Extremity: COMMON NORMALS: normal to inspection and capillary refill normal Neuro: COMMON NORMALS: patient oriented x3 and no focal motor deficits SENSORIUM/ORIENTATION: Yes alert MENINGEAL SIGNS: Yes no meningeal signs Psych: COMMON NORMALS: mental status grossly normal, Normal thought process present and cooperative THOUGHT PROCESS: Normal thought process present Data Micro: Micro: Microbiology 01/10/21 17:55 Blood Culture - Pr eliminary Blood Gram positive r od A&P Assessment and plan (1) Sepsis: As exhibited by tachycardia and fever. Patient was not tachypneic and WBC was 11.5 on admission Status: Acute (2) Peritonitis, acute generalized: Status: Acute (3) Diverticulitis of colon with perforation: Status: Acute Qualifiers: Diverticulitis bleeding: unspecified bleeding status Qualified Code(s): K57.20 - Diverticulitis of large intestine with perforation and abscess without bleeding (4) Tooth infection: For the last 3 months Status: Acute (5) Bacteremia: Gram-positive cody Status: Acute (6) Dehydration with hyponatremia: Status: Acute (7) Morbid obesity with BMI of 45.0-49.9, adult: Status: Acute (8) Asthma: Controlled. Status: Acute (9) Macrocytic anemia: Status: Acute Additional A&P Information PLAN: We will change IV fluids to LR at 150 mL/h. Continue Zosyn and vancomycin and I will add Levaquin. Patient is at risk for extrinsic kidney infection/abscess and may require surgical intervention. Dr. Velez is planning to transfer patient to [facility] therefore no further evaluation of patient's bacteremia/possible embolic infectious focus will not be performed here except as I have requested 1 more set of blood cultures. Given patient's tooth infection and somewhat unusual episode of bowel perforation I think further evaluation for bacteremia/endocarditis will need to be performed and I will let the physicians at [facility] to do further work-up. I have discussed with patient to make sure he addresses his to [facility] infection after he is discharged. Patient would benefit from sleep study. Consult Attestations Medical Necessity Statement: Patient with peritonitis requires inpatient monitoring and treatment. Patient is being transferred to [facility]. 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
--- NOTE | 2021-01-13 14:15 | P.TS_ITS ---
Transfer Summary Providers Date of Admission: 01/10/21 18:32 Date of Discharge: 01/13/21 Attending Provider at Admission: Jake Velez MD Attending Provider at Transfer: Jake Velez MD Consults: Dr Parks Anticipated Date of Transfer: Anticipated date of transfer: 01/13/21 Receiving Facility & Provider: Receiving Provider: [Dr Conner colorectal surgeon] Receiving facility: [[facility]] Diagnoses at Discharge Discharge Diagnosis (1) Diverticulitis of colon with perforation: Status: Acute Qualifiers: Diverticulitis bleeding: unspecified bleeding status Qualified Code(s): K57.20 - Diverticulitis of large intestine with perforation and abscess without bleeding Reason for Visit Reason for Visit: ABDOMINAL PAIN Brief History: This is a pleasant 30 years old male morbidly obese patient with a current BMI of 46.2 and weighs 350 pounds. Presented to the emergency department last evening with worsening abdominal pain mostly on the left side of the abdomen and undergone a CT scan of the abdomen and pelvis that showed perforation of the transverse colon diverticulum which is confined with foci of gas in the retroperitoneum. CT scan specifics: 1. Inflammatory changes and small volume extraluminal gas in the retroperitoneum on the left. The suspected cause is perforated descending colonic diverticulosis, although the findings are not definitive. 2. No abscess I was consulted by the emergency department physician and I accepted to admit the patient on my service for IV fluid resuscitation and was started on broad- spectrum antibiotic in the form of Zosyn and Flagyl IV. Patient was kept n.p.o. with the plan for repeated physical examination and monitoring closely on the floor on telemetry. 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 Otherwise he does receive albuterol sulfate for bronchial asthma and has been having heart rate running between 90s and 100 and that is his normal baseline per his description. Since admission patient started to show some improvement and continued to have normal WBC count and normalization of lactic acid and with repeated physical examination showed more pain and tenderness towards the left lower side of the abdomen and left flank and less tenderness on the right side of the abdomen. Maintained to have good urine output yet he continued to be tachycardic and running bouts of fevers which she did spike a maximum of 103.1 at some point and blood cultures were obtained that today showed gram positive rods, vancomycin IV was added as well as Levaquin that was recently added by the hospitalist service as I did consult him to help in managing the patient because of his septic picture. Patient continued to be on pharmacologic DVT prophylaxis. Yesterday patient tolerated p.o. intake to certain extent but he felt nauseous and continued to have loose nonbloody stools and stool studies were sent as well yet today on morning rounds he demonstrated worsening pain towards the left side of his abdomen and left flank with erythematous reaction on his left side of the torso. I elected to send the patient for repeat CT scan of the abdomen and pelvis with IV contrast that showed: 1. Significant worsening of the inflammatory process in the left pericolic gutter with prominent increased infiltration of the retroperitoneal fat and amount of extraluminal gas. This is consistent with worsening inflammation from perforated diverticulitis is in the proximal descending colon. 2. There is subcutaneous swelling and abdominal wall muscle edema over the left flank consistent with cellulitis. 3. Sigmoid diverticulosis. At this point I elected to contact [facility] colorectal service and Dr. Gandara graciously accepted the patient because of my concern that the patient may deteriorate and with limited resources it would be harder and clinically challenging to maximize patient's care, patient will require to be transferred to higher level of acuity. I had to switch the patient back to n.p.o. except for ice chips and continue to be on resuscitating IV fluids. Likely the patient would benefit from further medical work-up and critical care involvement. Patient is appropriate and stable clinically to be transferred by ambulance. Physical Exam Narrative: EXAM NARRATIVE: Patient is conscious alert oriented X3 BMI 46.2 Head and neck examination PERRLA no masses no cervical lymphadenopathy no jaundice Cardiac examination audible S1-S2 no murmurs no gallops no arrhythmias Chest is clear bilateral,abscence of Rhonchi or wheezes,no surgical emphysema Abdomen more localized tenderness towards the left lower side of the abdomen and left flank with some erythema noticed at the left side of the abdomen and flank of the skin. Morbidly obese Extremities no cyanosis no clubbing no edema TS Data Data Completed and Pending: Completed Studies During Hospitalization Category Date Time Status CT abdomen pelvis w con* [id number] Stat Cat Scan 01/13/21 06:[address] abdomen pelvis w con* [id number] Urge nt Cat Scan 01/10/21 17:21 Completed Pending at discharge Category Date Time Status Blood Culture Rou jeffry Lab 01/13/21 13:28 Ordered Blood Culture Sta t Lab 01/10/21 22:15 Results Clostridioides Di fficile PCR Routin e Lab 01/12/21 06:42 Ordered Enteric Bacterial Panel by PCR Rout ine Lab 01/12/21 06:42 Ordered Enteric Parasite Panel by PCR Routi ne Lab 01/12/21 06:42 Ordered Immunochemical Fe carrol OCB Routine Lab 01/12/21 06:42 Ordered Stool WBC [Lactof bridgett] Routine Lab 01/12/21 06:42 Ordered Labs from last 24 hours 01/13/21 01/13/21 01/13/21 06:34 06:34 06:34 WBC 8.5 RBC 3.50 L Hgb 11.5 L Hct 35.3 L MCV 100.9 H MCH 32.9 MCHC 32.6 RDW 15.9 H Plt Count 163 MPV 10.5 H Neut % (Auto) 78.0 Lymph % (Auto) 8.1 Howell % (Auto) 11.8 Eos % (Auto) 0.8 Baso % (Auto) 0.5 Neut # (Auto) 6.65 Lymph # (Auto) 0.7 L Howell # (Auto) 1.0 H Eos # (Auto) 0.1 Baso # (Auto) 0.0 Nucleated RBC % (a uto) 0 Nucleated RBCs # 0.0 Sodium 133 L Potassium 3.5 Chloride 96 L Carbon Dioxide 28 Anion Gap 12.5 BUN 6 Creatinine 0.7 GFR Calculation 130.7 H Glucose 113 Calculated Osmolal ity 274 L Calcium 8.1 L Phosphorus 1.8 L Magnesium 1.9 Vitals: Last Vital Signs Temp 100.1 F H 01/13/21 11:44 Pulse 114 H 01/13/21 11:44 Resp 20 H 01/13/21 12:22 BP 121/77 01/13/21 11:44 Pulse Ox 94 01/13/21 11:44 TS Medications Medications Home Medications acetaminophen [Tylenol Extra Strength] 1,000 mg PO PRN 01/10/21 [History Confirmed 01/10/21] albuterol sulfate [ProAir HFA] 2 puff INHALATION Q4H PRN 01/10/21 [History Confirmed 01/10/21] aspirin 325 mg PO PRN 01/10/21 [History Confirmed 01/10/21] Active Medications Acetaminophen (Acetaminophen 325 Mg Tablet) 650 mg PO Q6H PRN PRN Reason: MILD PAIN Last Admin: 01/13/21 04:44 Dose: 650 mg Documented by: Hydrocodone Bitart/Acetaminophen (Hydrocodone-Acetaminophen 5-325 Mg Tablet) 1 tab PO Q6H PRN PRN Reason: MODERATE TO SEVERE PAIN Last Admin: 01/12/21 20:25 Dose: 1 tab Documented by: Albuterol Sulfate (Albuterol 8 Gm Mdi) 2 puff INHALATION Q4H.RESPIRATORY PRN PRN Reason: SHORTNESS OF BREATH Enoxaparin Sodium (Enoxaparin 40 Mg/0.4 Ml Syringe) 40 mg SUBCUT Q24H VENKAT Last Admin: 01/12/21 20:25 Dose: 40 mg Documented by: Hydromorphone HCl (Hydromorphone 1 Mg/Ml Inj 1 Ml) 1 mg IVP Q2H PRN PRN Reason: PAIN Last Admin: 01/13/21 11:05 Dose: 1 mg Documented by: Metronidazole (Flagyl Iv) 500 mg in 100 mls @ 100 mls/hr IV Q6H VENKAT; Protocol Last Admin: 01/13/21 11:24 Dose: 100 mls/hr Documented by: Piperacillin Sod/Tazobactam (Sod 4.5 gm/ Sodium Chloride) 50 mls @ 12.5 mls/hr IV Q8H VENKAT; Protocol Last Infusion: 01/13/21 11:39 Dose: Infused Documented by: Vancomycin HCl 2,000 mg/ (Sodium Chloride) 500 mls @ 250 mls/hr IV Q12H VENKAT; Protocol Last Admin: 01/13/21 12:00 Dose: 250 mls/hr Documented by: Levofloxacin/Dextrose (Levaquin-D5w) 750 mg in 150 mls @ 100 mls/hr IV ONCE O NE; Protocol Stop: 01/13/21 15:38 Lactated Ringer's (Lactated Ringers) 1,000 mls @ 150 mls/hr IV .Q6H40M VENKAT Lorazepam (Lorazepam 0.5 Mg Tablet) 0.5 mg PO Q4H PRN PRN Reason: ANXIETY Last Admin: 01/13/21 11:34 Dose: 0.5 mg Documented by: Morphine Sulfate (Morphine 4 Mg/Ml Sdv 1 Ml) 2 mg IVP Q2H PRN PRN Reason: SEVERE PAIN Last Admin: 01/13/21 12:22 Dose: 2 mg Documented by: Naloxone HCl (Naloxone 0.4 Mg/Ml Sdv) 0.4 mg IVP PRN PRN PRN Reason: RESPIRATORY RATE < 8/MIN Ondansetron HCl (Ondansetron 2 Mg/Ml Sdv 2 Ml) 4 mg IVP Q6H PRN PRN Reason: NAUSEA AND VOMITING Last Admin: 01/13/21 08:14 Dose: 4 mg Documented by: Discharge Plan Discharge Patient Disposition: Xfer Other Condition: Stable Prescriptions: Continued aspirin 325 mg Tablet 325 mg PO PRN RF: 0 Tylenol Extra Strength 500 mg Tablet 1,000 mg PO PRN RF: 0 ProAir HFA 90 mcg/actuation HFA aerosol inhaler 2 puff INHALATION Q4H PRN (Reason: Shortness Of Breath) RF: 0 Discharge Orders: Discharge Order (Routine); Ordered 01/13/21 Ordered By: Jake Velez Discharge Diet: As Directed Discharge Activity: Limit activity as instructed Transfer Attestations Time Spent in Transfer Care*: greater than 30 min Specific Discharge Activities: Specific discharge activities: educating patient Status at Transfer: Cognitive status at transfer: cognitively intact , Behavioral status at transfer: cooperative , Functional status at transfer: independent ambulation Overall status at transfer: patient is not back to baseline Quality Metrics Clinical Quality Measures: During this hospital stay, did patient experience: None Coding Level of Care Code Acute Door Installer for Chente Yeager Diagnoses Diverticulitis of colon with perforation K57.20 Diverticulitis bleeding: unspecified bleeding status
[2021-01-13] MEDS: HYDROcodone-acetaminophen 5-325 mg Tablet 1 TAB PO (14:17)
[2021-01-13] MEDS: levofloxacin-dextrose 5 % 750 MG/150 ML PREMIX 100 MG IV (15:45)
[2021-01-13] MEDS: diphenhydrAMINE 50 mg/mL SDV 1mL 12.5 MG IVP (17:35)
--- NOTE | 2021-01-13 18:39 | PC.NURSE ---
report was given to Heather العراقي RN at [facility]. removed one IV on patient right forearm. bleeding controlled with 2x2. patient tolerated well. one IV to the right wrist was left in place for pain management during transfer in ambulance d/t patient requiring IVP PRN meds Q2H. belongings and patient were taken on stretcher by paramedics off the floor.
== END 2021-01-13 17:45 | disposition short-term general hospital (02) | DRG 871 ==
LOC: ER 18:43 → MEDSURG 19:47
PROVIDERS: Admitting Provider Surgery; Emergency Provider Family Medicine; Visit Provider Surgery
DX: A41.9 Sepsis, unspecified organism (principal); K65.0 Generalized (acute) peritonitis; K57.20 Diverticulitis of large intestine with perforation and abscess without bleeding; Z68.42 Body mass index [BMI] 45.0-49.9, adult; E87.1 Hypo-osmolality and hyponatremia; E66.01 Morbid (severe) obesity due to excess calories; K59.09 Other constipation; Z87.891 Personal history of nicotine dependence; J45.909 Unspecified asthma, uncomplicated; K04.7 Periapical abscess without sinus; E86.0 Dehydration; D53.9 Nutritional anemia, unspecified; Z86.14 Personal history of Methicillin resistant Staphylococcus aureus infection
CPT/HCPCS: 36415; 74177; 80048; 80053; 81003; 82274; 83605; 83630; 83735; 84100; 85025; 85610; 85730; 86140; 87040; 87205; 87493; 87506; 93005; 96365; 96367; 96372; 96375; 99285; J1170; J1200; J1650; J1956; J2270; J2405; J2543; J3010; J3370; J7030; J7040; Q9967; S0030

== ENCOUNTER 2021-01-29 11:09 | Emergency (ER) | payer SELFPAY ==
[2021-01-29] VITALS (7 sets, daily range): BP systolic 136–151; BP diastolic 83–98; PULSE 91–116; RESP 14–22; TEMP 37.5; O2SAT 94–98; BMI 46.1
[2021-01-29 11:56] LABS: Basophils # 0.1 10^3/uL (0.0-0.1); Basophils % 0.6 %; Eosinophils # 0.1 10^3/uL (0.0-0.8); Eosinophils % 0.9 %; Hematocrit 41.2 % (42.0-52.0); Hemoglobin 13.4 g/dL (11.7-16.6); Lymphocytes # 2.4 10^3/uL (0.8-4.8); Lymphocytes % 16.6 %; Mean Corpuscular HGB Conc 32.5 g/dL (30.0-36.0); Mean Corpuscular Hemoglobin 31.7 pg (28.0-34.0); Mean Corpuscular Volume 97.4 fL (80-94); Mean Platelet Volume 9.3 fL (7.4-10.4); Monocytes % 6.7 %; Neutrophils # 10.61 10^3/uL (1.8-7.7); Neutrophils % 74.5 %; Nucleated Red Blood Cells % 0 %; Platelet Count 482 10^3/cmm (130-400); Red Blood Count 4.23 10^6/uL (4.1-5.3); Red Cell Distribution Width 16.4 % (12.1-15.1); White Blood Count 14.3 10^3/uL (4.0-10.0)
[2021-01-29] MEDS: ondansetron 2 mg/ML SDV 2 mL 4 MG IVP (11:59)
[2021-01-29] MEDS: morphine 4 mg/mL SDV 1 mL 6 MG IVP (12:00)
[2021-01-29] MEDS: sodium chloride 0.9% 1,000 ML 999 ML IV (12:01)
--- NOTE | 2021-01-29 12:05 | W.ED.ABDPA2 ---
HPI - Abdominal Pain General: Chief Complaint: Abdominal Pain Stated Complaint: ABDOMINAL PAIN Time Seen by Provider: 01/29/21 11:12 History of Present Illness: HPI narrative: 30-year-old male reports to the emergency room via EMS with abdominal pain. Earlier this month he had a perforation of his bowel due to diverticulitis and underwent a resection with a colostomy. He had a dehiscence of his abdominal wall wound and is being packed currently. He comes in today reporting increased abdominal pain. He has not had any blood from the colostomy other than occasionally when he wipes across the exposed mucosa. He has had a little bit of leakage from the colostomy appliance at times unfortunately it is immediately adjacent to the dehisced wound. He denies any fever sweats or chills he has had an episode of vomiting this morning. Denies any hematochezia. MD elicited complaint: abdominal pain Onset (ago): day(s) Pain Consistency: intermittent Location: LLQ Quality: cramping Radiation: none Exacerbating factors: nothing Relieving factors: nothing Associated Symptoms: Reports nausea; Denies bloating, chills, coffee ground emesis, constipation, diarrhea, dysuria, fever(s), hematochezia, hematemesis, melena and vomiting Review of Systems Const: Denies: fever(s), chills, body aches, change in appetite, fatigue or malaise ENMT: Denies: throat pain, ear or mastoid pain, nasal discharge or nasal congestion Card: Denies: chest pain, edema, dyspnea on exertion or orthopnea Resp: Denies: dyspnea, productive cough or non-productive cough GI: Reports: abdominal pain and nausea; Denies: vomiting, hematemesis, coffee ground emesis, diarrhea, constipation, bloating, hematochezia or melena : Denies: flank pain, dysuria, urinary frequency or urinary urgency Skin/Breast: Denies: rash or pruritus PFSH ED PFSH: Medical History Asthma Morbid obesity with BMI of 45.0-49.9, adult Peritonitis, acute generalized Staphylococcal infection of skin Surgical History History of appendectomy Family History Father Cancer Lung cancer, smoker in his late 40s Mother No problems noted. Social History Smoking and tobacco status: former smoker Alcohol intake: current Alcohol intake frequency: few times a month Physical Exam Const: COMMON NORMALS: no acute distress GENERAL APPEARANCE: cooperative and comfortable ORIENTATION/CONSCIOUSNESS: Yes awake, Yes oriented to person, Yes oriented to place and Yes oriented to time HENMT: COMMON NORMALS: normocephalic, atraumatic and hearing grossly normal bilaterally HEAD & SCALP: normocephalic and atraumatic Neck/C-Spine: COMMON NORMALS: no JVD Resp: COMMON NORMALS: normal respiratory effort, No retractions, No use of accessory muscles and clear to auscultation bilaterally AUSCULTATION: clear to auscultation bilaterally Cardio: COMMON NORMALS: no JVD, regular rate, regular rhythm and No murmurs present (Cardio) RATE: regular rate RHYTHM: regular rhythm GI: COMMON NORMALS: Soft to palpation and No hepatosplenomegaly present AUSCULTATION: Yes normoactive bowel sounds PALPATION: Yes Soft to palpation, No Tenderness to palpation present (GI), No Guarding due to palpation present (GI) and Yes No hepatosplenomegaly present OTHER: Colostomy itself looks good edges are clean there is no sign of infection the abdominal incision is dehisced to its full depth the tissue is pink and granulated there is no sign of infection. It is open patient in saline soaked gauze in the wound. Extremity: COMMON NORMALS: normal to inspection, capillary refill normal, no clubbing, cyanosis or edema, no calf tenderness and no pedal edema Neuro: SENSORIUM/ORIENTATION: Yes oriented to person, Yes oriented to place and Yes oriented to time Skin: COMMON NORMALS: no rashes or lesions noted GENERAL SKIN EXAM: no rashes or lesions noted Course Vital Signs: Vital signs: Vital Signs Temperature 99.5 F 01/29/21 11:10 Pulse Rate 91 01/29/21 15:12 Respiratory Rate 14 01/29/21 15:12 Blood Pressure 137/83 01/29/21 15:12 Pulse Oximetry 98 01/29/21 15:12 MDM - Abdominal Pain MDM Narrative: Medical decision making narrative: Changes on the CT year actually seem to be resolving postsurgical and postinfectious changes. We will put him on Bactrim twice a day for 7 days. It is concerning he is getting leakage from th colostomy but it is due to the ostomy appliance not a surgical problem. Otherwise his abdomen is benign. Organ to try to get him set up with a primary care doctor and see if we can get something arranged with wound care. The obstacle logistically as the patient has no insurance and may be difficult to get him into those clinics. Case management is assisting. Lab Data: Labs: Lab Results 01/29/21 01/29/21 01/29/21 Range/Units 11:45 11:45 12:57 WBC 14.3 H (4.0-10.0) 10^3/ uL RBC 4.23 (4.1-5.3) 10^6/u L Hgb 13.4 (11.7-16.6) g/dL Hct 41.2 L (42.0-52.0) % MCV 97.4 H (80-94) fL MCH 31.7 (28.0-34.0) pg MCHC 32.5 (30.0-36.0) g/dL RDW 16.4 H (12.1-15.1) % Plt Count 482 H (130-400) 10^3/c mm MPV 9.3 (7.4-10.4) fL Neut % (Auto) 74.5 % Lymph % (Auto) 16.6 % Boundary % (Auto) 6.7 % Eos % (Auto) 0.9 % Baso % (Auto) 0.6 % Neut # (Auto) 10.61 H (1.8-7.7) 10^3/u L Lymph # (Auto) 2.4 (0.8-4.8) 10^3/u L Boundary # (Auto) 1.0 H (0.2-0.9) 10^3/u L Eos # (Auto) 0.1 (0.0-0.8) 10^3/u L Baso # (Auto) 0.1 (0.0-0.1) 10^3/u L Nucleated RBC % (a uto) 0 % Nucleated RBCs # 0.0 /100WBC Sodium 134 L (136-145) mmol/L Potassium 5.0 (3.5-5.1) mmol/L Chloride 96 L (98-107) mmol/L Carbon Dioxide 23 (22-29) mmol/L Anion Gap 20.0 H (5-19) BUN 14 (6-20) mg/dL Creatinine 0.7 (0.7-1.2) mg/dL GFR Calculation 130.7 H (90-130) mL/min Glucose 131 H (65-115) mg/dL Calculated Osmolal ity 280 L (285-295) mOsm/k g Calcium 9.9 (8.5-10.5) mg/dL Total Bilirubin 0.3 (0.15-1.2) mg/dL AST 13 (0-40) U/L ALT 16 (0-41) U/L Alkaline Phosphata se 62 (40-130) IU/L Total Protein 8.3 (6.6-8.7) g/dL Albumin 4.1 (3.5-5.2) g/dL Globulin 4.2 (1.3-4.6) g/dL Lipase 41 (13-60) U/L Urine Color Yellow (Yellow) Urine Appearance Clear (CLEAR) Urine pH 5 (5-7) Ur Specific Gravit y 1.025 (1.005-1.030) Urine Protein Trace (Negative) Urine Glucose (UA) Norm (Normal) Urine Ketones Negative (Negative) Urine Blood Neg (Negative) Urine Nitrate Negative (Negative) Urine Bilirubin Neg (Negative) Urine Urobilinogen Norm (Negative) mg/dL Ur Leukocyte Kate ase Negative (Negative) Urine RBC 0-4 H (0-2) /hpf Urine WBC 0-4 H (0-5) /hpf Ur Squamous Epith Cells 0-4 H (0-5) /hpf Amorphous Sediment Not Reportable Urine Bacteria 1+ H (NONE) /hpf Coarse Granular Ca sts 0-4 H /lpf Urine Mucus 3+ /hpf Urine Sperm 1+ /hpf Discharge Plan Discharge Patient Disposition: Home Clinical Impression: Colostomy and enterostomy complications, Diverticulitis of colon with perforation, Abdominal wound dehiscence Condition: Stable Prescriptions: New hydrocodone-acetaminophen 5-325 mg tablet 1 tab PO Q6H PRN (Reason: pain) Qty: 20 RF: 0 Zofran 4 mg tablet 4 mg PO Q6H PRN (Reason: nausea and vomiting) Qty: 15 RF: 0 Bactrim DS 800-160 mg tablet 1 tab PO BID 7 Days Qty: 14 RF: 0 No Action ibuprofen 200 mg Tablet 200 mg PO Q6H PRN (Reason: Pain) RF: 0 aspirin 325 mg Tablet 325 mg PO PRN RF: 0 acetaminophen [Tylenol Extra Strength] 500 mg Tablet 1,000 mg PO Q6H PRN (Reason: Pain) RF: 0 albuterol sulfate [ProAir HFA] 90 mcg/actuation HFA aerosol inhaler 2 puff INHALATION Q4H PRN (Reason: Shortness Of Breath) RF: 0 Discharge Orders: Discharge ED (Routine); Ordered 01/29/21 Ordered By: Rolando Albrecht Discharge Diet: Usual diet Discharge Activity: Increase activity as tolerated Patient Instructions: Opioid Safety Activity Restrictions/Additional Instructions: Recommend you establish with primary care doctor to help with wound care and ostomy care. Coding Level of Care Code ED Welder Plasma Arc for Chente Yeager
[2021-01-29 12:22] LABS: Alanine Aminotransferase 16 U/L (0-41); Albumin Level 4.1 g/dL (3.5-5.2); Alkaline Phosphatase 62 IU/L (40-130); Aspartate Amino Transferase 13 U/L (0-40); Blood Urea Nitrogen 14 mg/dL (6-20); Calcium 9.9 mg/dL (8.5-10.5); Carbon Dioxide 23 mmol/L (22-29); Chloride 96 mmol/L (98-107); Globulin 4.2 g/dL (1.3-4.6); Glomerular Filtration Rate 130.7 mL/min (90-130); Glucose 131 mg/dL (65-115); Lipase 41 U/L (13-60); Osmolality Calculated 280 mOsm/kg (285-295); Sodium 134 mmol/L (136-145); Total Bilirubin 0.3 mg/dL (0.15-1.2); Total Protein 8.3 g/dL (6.6-8.7)
--- NOTE | 2021-01-29 12:54 | PC.NURSE ---
Patient educated again that a urine sample is needed. Patient decided to stand up at the side of the bed to try to provide a urine sample. Educated patient to use call light if he is able to go.
--- NOTE | 2021-01-29 13:24 | CT_ITS ---
WS: [id number] CT ABDOMEN AND PELVIS WITH CONTRAST HISTORY: abd pain, post colostomy. TECHNIQUE: Imaging performed of the abdomen and pelvis with IV contrast. Single phase imaging of the abdomen. Coronal and sagittal reformats are submitted. All CT scans at [facility] use at least one of these dose optimization techniques: automated exposure control; mA and/or kV adjustment per patient size (includes targeted exams where dose is matched to clinical indication); or iterativ e reconstruction. IV CONTRAST: Omnipaque 300; 95 mL IV. Oral contrast: No DLP: 2105.26 mGy.cm COMPARISON: 01/13/2021 Lower thorax: Lung bases are clear. Heart is normal size. No hiatal hernia. Liver/biliary system: Normal size with no intrahepatic dilatation. Gallbladder: Normal. No gallstones or wall thickening. No pericholecystic fluid. Pancreas: Normal. Spleen: Normal. Adrenal glands: Normal. Right kidney: Normal. Left kidney: Normal. Aorta: Normal. Lymphadenopathy: There are a few scattered small mesenteric lymph nodes. Similar to the prior exam. Free fluid: No significant amount of free fluid. There is stranding within the fat along the LEFT par acolic gutter and along the perirenal fascia. Overall improvement in the reticulation of fat in the a bdomen since the prior study with resolution of the free air. GI tract: Status post colostomy since the prior study. Transverse colon and colostomy in the postsurg ical sutures are noted at the sigmoid. There is reticulation of fat stranding around the colostomy si te but no abscess. Abdominal wall: LEFT abdominal colostomy with postsurgical changes in the midline uncomplicated. Mild fat reticulation along the colostomy tract. Pelvis: Normal. Bones: Unremarkable. CT/CT abdomen pelvis w con* [id number] IMPRESSION: 1. Since the prior study colostomy has been performed with the transverse colo n ending via the colostomy. Mild reticulation of fat in the subcutaneous fat of the wall at the colostomy site. This may all be normal for recent postsurgical change. Early changes of cellulitis are not excluded and would appear similar. No abscess. 2. Overall moderate improvement in the mesenteric and retroperitoneal fat stra nding and edema in the LEFT abdomen and pelvis since the prior study. 3. No free air. 4. No obstruction. 5. No abscess.
[2021-01-29 13:32] LABS: Add Urine Microscopic? YES; Bacteria Urine 1+ /hpf; Bilirubin Urine Neg (Negative); Blood Urine Neg (Negative); Glucose Urine UA Norm (Normal); Ketones Urine Negative (Negative); Leukocyte Esterase Urine Negative (Negative); Mucus Urine 3+ /hpf; Nitrate Urine Negative (Negative); Protein Urine Trace (Negative); RBC Urine 0-4 /hpf (0-2); Specific Gravity, Urine 1.025 (1.005-1.030); Squamous Epithelial Cell Urine 0-4 /hpf (0-5); Urine Appearance Clear (CLEAR); Urine Color Yellow (Yellow); Urobilinogen Urine Norm (Negative); WBC Urine 0-4 /hpf (0-5); pH Urine 5 (5-7)
[2021-01-29 13:33] LABS: Add Urine Culture? No; Coarse Granular Casts Urine 0-4 /lpf; Sperm Urine 1+ /hpf
[2021-01-29] MEDS: iohexol 300 mg/mL 100 mL Btl IV (13:45)
[2021-01-29] MEDS: morphine 4 mg/mL SDV 1 mL IVP (14:03)
== END 2021-01-29 15:14 | disposition home or self-care (01) ==
PROVIDERS: Emergency Provider Family Medicine
DX: K94.00 Colostomy complication, unspecified (principal); K57.20 Diverticulitis of large intestine with perforation and abscess without bleeding; T81.30XA Disruption of wound, unspecified, initial encounter; Z79.82 Long term (current) use of aspirin; Z87.891 Personal history of nicotine dependence
CPT/HCPCS: 36415; 74177; 80053; 81001; 83690; 85025; 96361; 96374; 96375; 96376; 99284; J2270; J2405; J7030; Q9967

== ENCOUNTER 2021-02-22 12:38 | Observation (INO) | payer SELFPAY ==
[2021-02-22 12:39] VITALS: BP 124/78; PULSE 120; RESP 18; TEMP 37.1; O2SAT 96; BMI 43.0
--- NOTE | 2021-02-22 13:45 | CT_ITS ---
WS: [id number] CT ABDOMEN PELVIS TECHNIQUE: Contrast-enhanced CT of the abdomen and pelvis with coronal and sagittal reformatted image s. CLINICAL INFORMATION: s/p sigmoid colectomy, no output from colostomy COMPARISON: January 29, 2021 DLP: 2580.[address] scans at [facility] use at least one of these dose optimization techniques: automat ed exposure control; mA and/or kV adjustment per patient size (includes targeted exams where dose is matched to clinical indication); or iterative reconstruction. FINDINGS: Postoperative changes transverse colon colostomy. Mild induration along the subcutaneous fat at the c olostomy site. No evidence of narrowing or obstruction at the colostomy. No drainable fluid collectio ns or abscess. No evidence of small or large bowel obstruction. Noncontrast liver is normal. Normal gallbladder. Noncontrast spleen is normal. Normal GE junction. Rachel ng bases are well aerated. Mild fatty atrophy of the pancreas. Normal caliber abdominal aorta. Adrena l glands are normal. Normal renal parenchymal enhancement. No hydronephrosis. No abdominal or pelvic lymphadenopathy. Prior postoperative changes sigmoid colon.. No other significant changes from previo us. CT/CT abdomen pelvis w con* [id number] IMPRESSION: 1. Mild induration at the colostomy site in the subcutaneous fat. No evidence of obstruction or drainable fluid collection. 2. No evidence of small or large bowel obstruction. Bowel is decompressed. 3. Prior postoperative changes sigmoid colon. 4. No other significant findings or changes from previous.
[2021-02-22] MEDS: ondansetron 2 mg/ML SDV 2 mL 4 MG IVP ×2 (14:15→22:02)
[2021-02-22] MEDS: morphine 4 mg/mL SDV 1 mL 8 MG IVP (14:16)
[2021-02-22 14:18] VITALS: PULSE 117; RESP 18; O2SAT 95
[2021-02-22 14:18] LABS: Basophils # 0.1 10^3/uL (0.0-0.1); Basophils % 0.9 %; Eosinophils % 0.2 %; Hematocrit 43.8 % (42.0-52.0); Hemoglobin 14.6 g/dL (11.7-16.6); Lymphocytes % 34.3 %; Mean Corpuscular HGB Conc 33.3 g/dL (30.0-36.0); Mean Corpuscular Hemoglobin 32.6 pg (28.0-34.0); Mean Corpuscular Volume 97.8 fL (80-94); Mean Platelet Volume 9.1 fL (7.4-10.4); Monocytes # 0.4 10^3/uL (0.2-0.9); Monocytes % 4.3 %; Neutrophils # 5.27 10^3/uL (1.8-7.7); Neutrophils % 60.2 %; Nucleated Red Blood Cells % 0 %; Platelet Count 435 10^3/cmm (130-400); Red Blood Count 4.48 10^6/uL (4.1-5.3); Red Cell Distribution Width 17.5 % (12.1-15.1); White Blood Count 8.8 10^3/uL (4.0-10.0)
[2021-02-22 14:34] LABS: Alanine Aminotransferase 31 U/L (0-41); Albumin Level 4.7 g/dL (3.5-5.2); Alkaline Phosphatase 74 IU/L (40-130); Blood Urea Nitrogen 21 mg/dL (6-20); C Reactive Protein 1.6 mg/L (0.0-4.9); Calcium 8.7 mg/dL (8.5-10.5); Carbon Dioxide 23 mmol/L (22-29); Chloride 96 mmol/L (98-107); Globulin 2.7 g/dL (1.3-4.6); Glomerular Filtration Rate 156.1 mL/min (90-130); Glucose 118 mg/dL (65-115); Osmolality Calculated 284 mOsm/kg (285-295); Sodium 135 mmol/L (136-145); Total Bilirubin 0.4 mg/dL (0.15-1.2); Total Protein 7.4 g/dL (6.6-8.7)
[2021-02-22 14:37] LABS: Anion Gap 21.4 (5-19); Aspartate Amino Transferase 21 U/L (0-40); Potassium 5.4 mmol/L (3.5-5.1)
[2021-02-22] MEDS: iohexol 300 mg/mL 100 mL Btl IV (14:38)
[2021-02-22] MEDS: sodium chloride 0.9% 1,000 ML 999 ML IV ×2 (14:51→16:15)
[2021-02-22] MEDS: morphine 4 mg/mL SDV 1 mL IVP ×2 (16:14→19:39)
--- NOTE | 2021-02-22 17:06 | W.ED.ABDPA2 ---
HPI - Abdominal Pain General: Chief Complaint: Abdominal Pain Stated Complaint: abdominal pain/ surgical site complications Time Seen by Provider: 02/22/21 12:42 Source: patient and EMS Mode of arrival: EMS Limitations: no limitations History of Present Illness: HPI narrative: Patient is a 30-year-old male who had a complicated sigmoid diverticulitis and had sigmoid colectomy about 6 weeks ago on 14 January 2021 at [facility] in [place]. His postop care has been complicated by wound dehiscence. He has had a few ED visits for abdominal pain. He presents to the emergency department today with abdominal pain of several days duration that he says is worsening and he states that he has had no output from his colostomy for 2 days. He however states that his colostomy also leaks around his bag. He denies any fever but had an episode of vomiting. He was concerned that he has had a complication of his surgery and wants to be evaluated for these. He did state that he has been constipated and has been taking MiraLAX for this. He also states that he has not been drinking much because he was worried that things were leaking into his abdomen. MD elicited complaint: abdominal pain Pertinent past history: diverticulitis Onset (ago): day(s) Pain Consistency: constant Location: Diffuse Severity: severe Quality: stabbing Migration to: no migration Exacerbating factors: movement Relieving factors: nothing Context: recent surgery/procedure Associated Symptoms: Reports constipation and vomiting; Denies anorexia, belching, bloating, change in bowel habits, change in stool character, chills, coffee ground emesis, GI cramping, diarrhea, dyspepsia, dysuria, excessive flatus, fever(s), heartburn, hematochezia, hematuria, hematemesis, fecal incontinence, loose stools, melena, nausea, poor appetite and syncope Review of Systems General: Reports: 10 or more systems reviewed and unremarkable except in HPI and below Const: Denies: fever(s) or chills Card: Denies: syncope GI: Reports: vomiting and constipation; Denies: nausea, hematemesis, coffee ground emesis, heartburn, diarrhea, bloating, GI cramping, belching, excessive flatus, fecal incontinence, change in bowel habits, change in stool character, hematochezia or melena : Denies: dysuria or hematuria PFSH ED PFSH: Medical History Asthma Diverticulitis of colon with perforation Morbid obesity with BMI of 45.0-49.9, adult Peritonitis, acute generalized Sepsis Staphylococcal infection of skin Surgical History History of appendectomy Family History Father Cancer Lung cancer, smoker in his late 40s Mother No problems noted. Social History (Reviewed 02/23/21 @ :00 by Tiffany Stoddard MD, MSM) Smoking and tobacco status: former smoker Alcohol intake: current Alcohol intake frequency: few times a month Physical Exam Const: COMMON NORMALS: no acute distress, average body habitus, patient oriented x3, no limitations, healthy appearing, alert and well nourished HENMT: COMMON NORMALS: normocephalic, atraumatic and moist oral mucous membranes HEAD & SCALP: normocephalic and atraumatic Neck/C-Spine: COMMON NORMALS: no meningeal signs and no JVD Resp: COMMON NORMALS: normal respiratory effort, No retractions, No use of accessory muscles, clear to auscultation bilaterally and percussion normal AUSCULTATION: clear to auscultation bilaterally PERCUSSION: percussion normal Cardio: COMMON NORMALS: no JVD, regular rate, regular rhythm, S1 normal heart sound present, S2 normal heart sound present, No gallops present (Cardio), No clicks present (Cardio), No murmurs present (Cardio), No rub (Cardio) and Peripheral pulses 2+ throughout RATE: regular rate RHYTHM: regular rhythm HEART SOUNDS: S1 normal heart sound present and S2 normal heart sound present PERIPHERAL PULSES: Peripheral pulses 2+ throughout GI: COMMON NORMALS: Normal to inspection, nondistended, normoactive bowel sounds present, Soft to palpation, No hepatosplenomegaly present, no masses and no bruits PALPATION: Yes Soft to palpation, Yes Tenderness to palpation present (GI) (Vague generalized tenderness), No Guarding due to palpation present (GI), No Rigid due to palpation, Yes No hepatosplenomegaly present and No Rebound tenderness present Extremity: COMMON NORMALS: normal to inspection, full ROM, capillary refill normal, no calf tenderness and no pedal edema Neuro: COMMON NORMALS: patient oriented x3 SENSORIUM/ORIENTATION: Yes alert MENINGEAL SIGNS: Yes no meningeal signs Course Reevaluation(s): Reevaluation #1: Discussed his lab and imaging findings with him. Also discussed that he is lactic acid has not changed much after 2 L of normal saline. I think he would benefit from hospital admission overnight for hydration and monitoring of his lactic acid. He voiced understanding and is in agreement with the plan. Time: 17:06 Consultations: Consultation #1: Discussed the patient with Dr. Ayala, colorectal surgeon at [facility] in [place]. She advised that it is reasonable to admit the patient overnight for hydration and monitoring of his labs and if he clinically decompensates or his labs worsen then he should be transferred to [facility] in [place]. Time: 19:29 Consultation #2: Discussed the patient with Dr. Woodson, hospitalist and he kindly accepted patient to his service. Time: 19:45 Vital Signs: Vital signs: Vital Signs Temperature 97.4 F L 02/22/21 21:46 Pulse Rate 110 H 02/22/21 21:46 Respiratory Rate 20 H 02/22/21 21:46 Blood Pressure 128/79 02/22/21 21:46 Pulse Oximetry 97 02/22/21 21:46 MDM - Abdominal Pain MDM Narrative: Medical decision making narrative: 30-year-old male who has complicated sigmoid diverticulitis that required sigmoid colectomy about 6 weeks ago. Postop care has been complicated by wound dehiscence and abdominal pain. He presented today with abdominal pain, stated that he has not been drinking much for several days because he was concerned about leakage. He was noted to have significantly elevated lactic acid which only reduced a little after fluid hydration. No obvious sign of infection with a normal white cell count, normal urinalysis, CT scan of his abdomen and pelvis not concerning. He is admitted overnight for hydration and monitoring of his clinical status. I contacted the colorectal surgeon at [facility] and advised that we admit him here but if he decompensates he can be transferred to [facility] for further evaluation and management. Medical Records: Attestation: I reviewed the patient's medical records. Lab Data: Attestation: I reviewed the patient's lab results. Labs: Lab Results 02/22/21 02/22/21 02/22/21 Range/Units 14:00 14:00 14:00 WBC 8.8 (4.0-10.0) 10^3/ uL RBC 4.48 (4.1-5.3) 10^6/u L Hgb 14.6 (11.7-16.6) g/dL Hct 43.8 (42.0-52.0) % MCV 97.8 H (80-94) fL MCH 32.6 (28.0-34.0) pg MCHC 33.3 (30.0-36.0) g/dL RDW 17.5 H (12.1-15.1) % Plt Count 435 H (130-400) 10^3/c mm MPV 9.1 (7.4-10.4) fL Neut % (Auto) 60.2 % Lymph % (Auto) 34.3 % Shannon % (Auto) 4.3 % Eos % (Auto) 0.2 % Baso % (Auto) 0.9 % Neut # (Auto) 5.27 (1.8-7.7) 10^3/u L Lymph # (Auto) 3.0 (0.8-4.8) 10^3/u L Shannon # (Auto) 0.4 (0.2-0.9) 10^3/u L Eos # (Auto) 0.0 (0.0-0.8) 10^3/u L Baso # (Auto) 0.1 (0.0-0.1) 10^3/u L Nucleated RBC % (a uto) 0 % Nucleated RBCs # 0.0 /100WBC Sodium 135 L (136-145) mmol/L Potassium 5.4 H (3.5-5.1) mmol/L Chloride 96 L (98-107) mmol/L Carbon Dioxide 23 (22-29) mmol/L Anion Gap 21.4 H (5-19) BUN 21 H (6-20) mg/dL Creatinine 0.6 L (0.7-1.2) mg/dL GFR Calculation 156.1 H (90-130) mL/min Glucose 118 H (65-115) mg/dL Calculated Osmolal ity 284 L (285-295) mOsm/k g Lactate 5.0 H* (0.5-2.2) mmol/L Calcium 8.7 (8.5-10.5) mg/dL Total Bilirubin 0.4 (0.15-1.2) mg/dL AST 21 (0-40) U/L ALT 31 (0-41) U/L Alkaline Phosphata se 74 (40-130) IU/L C-Reactive Protein 1.6 (0.0-4.9) mg/L Total Protein 7.4 (6.6-8.7) g/dL Albumin 4.7 (3.5-5.2) g/dL Globulin 2.7 (1.3-4.6) g/dL Urine Color (Yellow) Urine Appearance (CLEAR) Urine pH (5-7) Ur Specific Gravit y (1.005-1.030) Urine Protein (Negative) Urine Glucose (UA) (Normal) Urine Ketones (Negative) Urine Blood (Negative) Urine Nitrate (Negative) Urine Bilirubin (Negative) Urine Urobilinogen (Negative) mg/dL Ur Leukocyte Kate ase (Negative) Urine RBC (0-2) /hpf Urine WBC (0-5) /hpf Ur Squamous Epith Cells (0-5) /hpf Amorphous Sediment Urine Bacteria (NONE) /hpf 02/22/21 02/22/21 Range/Units 15:40 16:55 WBC (4.0-10.0) 10^3/ uL RBC (4.1-5.3) 10^6/u L Hgb (11.7-16.6) g/dL Hct (42.0-52.0) % MCV (80-94) fL MCH (28.0-34.0) pg MCHC (30.0-36.0) g/dL RDW (12.1-15.1) % Plt Count (130-400) 10^3/c mm MPV (7.4-10.4) fL Neut % (Auto) % Lymph % (Auto) % Shannon % (Auto) % Eos % (Auto) % Baso % (Auto) % Neut # (Auto) (1.8-7.7) 10^3/u L Lymph # (Auto) (0.8-4.8) 10^3/u L Shannon # (Auto) (0.2-0.9) 10^3/u L Eos # (Auto) (0.0-0.8) 10^3/u L Baso # (Auto) (0.0-0.1) 10^3/u L Nucleated RBC % (a uto) % Nucleated RBCs # /100WBC Sodium (136-145) mmol/L Potassium (3.5-5.1) mmol/L Chloride (98-107) mmol/L Carbon Dioxide (22-29) mmol/L Anion Gap (5-19) BUN (6-20) mg/dL Creatinine (0.7-1.2) mg/dL GFR Calculation (90-130) mL/min Glucose (65-115) mg/dL Calculated Osmolal ity (285-295) mOsm/k g Lactate 4.4 H* (0.5-2.2) mmol/L Calcium (8.5-10.5) mg/dL Total Bilirubin (0.15-1.2) mg/dL AST (0-40) U/L ALT (0-41) U/L Alkaline Phosphata se (40-130) IU/L C-Reactive Protein (0.0-4.9) mg/L Total Protein (6.6-8.7) g/dL Albumin (3.5-5.2) g/dL Globulin (1.3-4.6) g/dL Urine Color Yellow (Yellow) Urine Appearance Clear (CLEAR) Urine pH 5 (5-7) Ur Specific Gravit y 1.015 (1.005-1.030) Urine Protein Trace (Negative) Urine Glucose (UA) Norm (Normal) Urine Ketones Negative (Negative) Urine Blood Neg (Negative) Urine Nitrate Negative (Negative) Urine Bilirubin Neg (Negative) Urine Urobilinogen Norm (Negative) mg/dL Ur Leukocyte Kate ase Negative (Negative) Urine RBC None (0-2) /hpf Urine WBC None (0-5) /hpf Ur Squamous Epith Cells 0-4 H (0-5) /hpf Amorphous Sediment Not Reportable Urine Bacteria Trace (NONE) /hpf Imaging Data ^: CT Abd/Pel: Attestation: I personally reviewed and interpreted this imaging study as follows: Radiologist's impression: [address] [place] [address] CT Scan Report Signed Patient: Stephany Meyers #: [id number] : 1990Acct#:[id number] Age/Sex: 30 / MADM Date: 02/22/21 Loc: ERRoom/Bed: Attending Dr: Ordering Provider/Ordering MD: Tiffany Stoddard MD, [facility] [place] Date of Service: 02/22/21 Procedure(s): CT abdomen pelvis w con* [id number] Accession Number(s): [id number] Report Number: [id number] WS: [id number] CT ABDOMEN PELVIS TECHNIQUE: Contrast-enhanced CT of the abdomen and pelvis with coronal and sagittal reformatted images. CLINICAL INFORMATION: s/p sigmoid colectomy, no output from colostomy COMPARISON: January 29, 2021 DLP: 2580.[address] scans at [facility] use at least one of these dose optimization techniques: automated exposure control; mA and/or kV adjustment per patient size (includes targeted exams where dose is matched to clinical indication); or iterative reconstruction. FINDINGS: Postoperative changes transverse colon colostomy. Mild induration along the subcutaneous fat at the colostomy site. No evidence of narrowing or obstruction at the colostomy. No drainable fluid collections or abscess. No evidence of small or large bowel obstruction. Noncontrast liver is normal. Normal gallbladder. Noncontrast spleen is normal. Normal GE junction. Lung bases are well aerated. Mild fatty atrophy of the pancreas. Normal caliber abdominal aorta. Adrenal glands are normal. Normal renal parenchymal enhancement. No hydronephrosis. No abdominal or pelvic lymphadenopathy. Prior postoperative changes sigmoid colon.. No other significant changes from previous. CT/CT abdomen pelvis w con* [id number] IMPRESSION: 1. Mild induration at the colostomy site in the subcutaneous fat. No evidence of obstruction or drainable fluid collection. 2. No evidence of small or large bowel obstruction. Bowel is decompressed. 3. Prior postoperative changes sigmoid colon. 4. No other significant findings or changes from previous. Dictated By:Ky Middleton MD Signed By:Ky Middleton MDSigned Date/Time:02/22/21 155 DD/ 155 Discharge Plan Discharge Patient Disposition: Admitted As Inpatient Admit Provider: Fidencio Woodson Clinical Impression: Dehydration with hyponatremia, Acidosis, lactic, Acute hyperkalemia Condition: Stable Coding Level of Care Code ED Check Services Clerk for Chente Yeager
[2021-02-22 17:37] LABS: Add Urine Microscopic? YES; Bilirubin Urine Neg (Negative); Blood Urine Neg (Negative); Glucose Urine UA Norm (Normal); Ketones Urine Negative (Negative); Leukocyte Esterase Urine Negative (Negative); Nitrate Urine Negative (Negative); Protein Urine Trace (Negative); Specific Gravity, Urine 1.015 (1.005-1.030); Urine Appearance Clear (CLEAR); Urine Color Yellow (Yellow); Urobilinogen Urine Norm (Negative); pH Urine 5 (5-7)
[2021-02-22 17:39] LABS: Add Urine Culture? No; Bacteria Urine TRACE /hpf; Squamous Epithelial Cell Urine 0-4 /hpf (0-5)
[2021-02-22 17:46] LABS: Lactate (Lactic Acid level) 4.4 mmol/L (0.5-2.2)
[2021-02-22] MEDS: metoclopramide 5 mg/mL SDV 2 mL 10 MG IVP (19:39)
[2021-02-22 19:42] VITALS: BP 124/77; PULSE 107; RESP 17; O2SAT 98
--- NOTE | 2021-02-22 20:25 | P.HP_ITS ---
Providers/Chief Complaint Admitting Physician: Fidencio Woodson Chief Complaint: abdominal pain/ surgical site complications History of Present Illness Deepak Meyers is a 30 year old male with history of recent complicated diverticulitis requiring sigmoid colectomy and colostomy placement at [facility] in [place]. Today he presents with complaints of abdominal pain in the area colostomy for last 2 to 3 days associated with constipation. He was worried about his stoma. However he states that today he finally had a b owel movement with some improvement of the pain. In emergency room CT of the abdomen was done which showed expected postoperative changes. No acute findings. He also has mild induration at the colostomy site in the subcutaneous fat. He denies any fevers or chills. No nausea or vomiting. Denies any blood in the stool. He reports that his pain is a little better since he had bowel movement. Dr. Stoddard of ED spoke with on-call surgeon at [facility]. They evaluated the pictures. The surgeon recommended to admit him for observation and hydration. If no improvements of the symptoms or if he develops any other symptoms transferred to [facility] can be considered. Review of Systems General: Reports: 10 or more systems reviewed and unremarkable except in HPI and below Medications/Allergies Home Medications Medication Instructions Recorded Confirmed Last Taken Type acetaminophen [Tylenol Extra 1,000 mg PO Q6H PRN 01/10/21 02/22/21 02/22/21 History Strength] albuterol sulfate [ProAir HFA] 2 puff INHALATION Q4H PRN 01/10/21 02/22/21 Unknown History ibuprofen 200 mg PO Q6H PRN 01/29/21 02/22/21 02/21/21 History Allergies Allergy/AdvReac Type Severity Reaction Status Date / Time beans Allergy ALGY-Anaphy Uncoded 02/15/21 07:56 laxis PFSH Acute PFSH: Medical History Asthma Diverticulitis of colon with perforation Morbid obesity with BMI of 45.0-49.9, adult Peritonitis, acute generalized Sepsis Staphylococcal infection of skin Surgical History History of appendectomy Family History Father Cancer Lung cancer, smoker in his late 40s Mother No problems noted. Social History Smoking and tobacco status: former smoker Alcohol intake: current Alcohol intake frequency: few times a month Vitals/I&O/Wt Last Vital Signs Temp 98.7 F 02/22/21 12:39 Pulse 107 H 02/22/21 19:42 Resp 17 02/22/21 19:42 BP 124/77 02/22/21 19:42 Pulse Ox 98 02/22/21 19:42 Weight last 48 hrs Weight 147.871 kg Physical Exam Narrative: EXAM NARRATIVE: The patient is awake alert and oriented. No acute distress. Mood and affect are appropriate. Responses are adequate. Skin is warm and dry. Moist mucous membranes. Eyes PERRL, extraocular muscles are intact Neck supple. No JVD Lungs clear bilaterally. No wheezes or crackles no respiratory distress Heart S1, S2, regular Abdomen soft, obese, nontender, bowel sounds are present. Ostomy is empty at this time. Visual portion of intestine seems to be pink, without evidence of infection. Extremities trace edema, no cyanosis or calf tenderness bilaterally Neuro evaluation is nonfocal. Data : 02/22/21 14:00 02/22/21 14:00 Other Labs: Laboratory Results WBC 8.8 10^3/uL (4.0-10.0) 02/22/21 14:00 RBC 4.48 10^6/uL (4.1-5.3) 02/22/21 14:00 Hgb 14.6 g/dL (11.7-16.6) 02/22/21 14:00 Hct 43.8 % (42.0-52.0) 02/22/21 14:00 MCV 97.8 fL (80-94) H 02/22/21 14:00 MCH 32.6 pg (28.0-34.0) 02/22/21 14:00 MCHC 33.3 g/dL (30.0-36.0) 02/22/21 14:00 RDW 17.5 % (12.1-15.1) H 02/22/21 14:00 Plt Count 435 10^3/cmm (130-400) H 02/22/21 14:00 MPV 9.1 fL (7.4-10.4) 02/22/21 14:00 Neut % (Auto) 60.2 % 02/22/21 14:00 Lymph % (Auto) 34.3 % 02/22/21 14:00 Roberts % (Auto) 4.3 % 02/22/21 14:00 Eos % (Auto) 0.2 % 02/22/21 14:00 Baso % (Auto) 0.9 % 02/22/21 14:00 Neut # (Auto) 5.27 10^3/uL (1.8-7.7) 02/22/21 14:00 Lymph # (Auto) 3.0 10^3/uL (0.8-4.8) 02/22/21 14:00 Roberts # (Auto) 0.4 10^3/uL (0.2-0.9) 02/22/21 14:00 Eos # (Auto) 0.0 10^3/uL (0.0-0.8) 02/22/21 14:00 Baso # (Auto) 0.1 10^3/uL (0.0-0.1) 02/22/21 14:00 Nucleated RBC % (auto) 0 % 02/22/21 14:00 Nucleated RBCs # 0.0 /100WBC 02/22/21 14:00 Sodium 135 mmol/L (136-145) L 02/22/21 14:00 Potassium 5.4 mmol/L (3.5-5.1) H 02/22/21 14:00 Chloride 96 mmol/L (98-107) L 02/22/21 14:00 Carbon Dioxide 23 mmol/L (22-29) 02/22/21 14:00 Anion Gap 21.4 (5-19) H 02/22/21 14:00 BUN 21 mg/dL (6-20) H 02/22/21 14:00 Creatinine 0.6 mg/dL (0.7-1.2) L 02/22/21 14:00 GFR Calculation 156.1 mL/min (90-130) H 02/22/21 14:00 Glucose 118 mg/dL (65-115) H 02/22/21 14:00 Calculated Osmolality 284 mOsm/kg (285-295) L 02/22/21 14:00 Lactate 4.4 mmol/L (0.5-2.2) H* 02/22/21 15:40 Calcium 8.7 mg/dL (8.5-10.5) 02/22/21 14:00 Total Bilirubin 0.4 mg/dL (0.15-1.2) 02/22/21 14:00 AST 21 U/L (0-40) 02/22/21 14:00 ALT 31 U/L (0-41) 02/22/21 14:00 Alkaline Phosphatase 74 IU/L (40-130) 02/22/21 14:00 C-Reactive Protein 1.6 mg/L (0.0-4.9) 02/22/21 14:00 Total Protein 7.4 g/dL (6.6-8.7) 02/22/21 14:00 Albumin 4.7 g/dL (3.5-5.2) 02/22/21 14:00 Globulin 2.7 g/dL (1.3-4.6) 02/22/21 14:00 Urine Color Yellow (Yellow) 02/22/21 16:55 Urine Appearance Clear (CLEAR) 02/22/21 16:55 Urine pH 5 (5-7) 02/22/21 16:55 Ur Specific [place] 1.015 (1.005-1.030) 02/22/21 16:55 Urine Protein Trace (Negative) 02/22/21 16:55 Urine Glucose (UA) Norm (Normal) 02/22/21 16:55 Urine Ketones Negative (Negative) 02/22/21 16:55 Urine Blood Neg (Negative) 02/22/21 16:55 Urine Nitrate Negative (Negative) 02/22/21 16:55 Urine Bilirubin Neg (Negative) 02/22/21 16:55 Urine Urobilinogen Norm mg/dL (Negative) 02/22/21 16:55 Ur Leukocyte Esterase Negative (Negative) 02/22/21 16:55 Urine RBC None /hpf (0-2) 02/22/21 16:55 Urine WBC None /hpf (0-5) 02/22/21 16:55 Ur Squamous Epith Cells 0-4 /hpf (0-5) H 02/22/21 16:55 Amorphous Sediment Not Reportable 02/22/21 16:55 Urine Bacteria Trace /hpf (NONE) 02/22/21 16:55 Impressions Abdomen/Pelvis CT 02/22/21 13:45 IMPRESSION: 1. Mild induration at the colostomy site in the subcutaneous fat. No evidence of obstruction or drainable fluid collection. 2. No evidence of small or large bowel obstruction. Bowel is decompressed. 3. Prior postoperative changes sigmoid colon. 4. No other significant findings or changes from previous. Micro: Microbiology 02/22/21 15:43 Blood Culture - Preliminary Blood SPECIMEN COLLECTED 02/22/21 15:40 Blood Culture - Preliminary Blood SPECIMEN COLLECTED A&P Additional A&P Information 30-year-old male with past medical history of recent sigmoid colectomy and colostomy placement due to complicated diverticulitis who is presenting with abdominal pain. He is found to have elevated lactic acid level suspected to be secondary to dehydration secondary to note drinking enough fluids due to fear of abdominal pain. CT did not show any acute findings except for mild induration of colostomy site in the subcutaneous fat. Hemodynamically stable. No evidence of infection at this time. Dehydration with associated hyperkalemia and mild lactic acidosis. ER physician spoke with surgeon in [facility]. They recommended to hydrate the patient and monitor. If he develops any other concerning symptoms or if his symptoms do not improve transfer to [place] can be considered. He received a bolus of IV fluids in emergency room. We will admit him for observation and continue IV fluids. Will monitor his electrolytes. We will recheck his lactic acid level in couple of hours and in a.m. If he develops any fever or other possible symptoms of infection will consider antibiotics. We will request ostomy/wound care consultation in the morning. Hyperkalemia. Probably secondary to above. Management with IV fluids. Close monitoring. Mild hyponatremia secondary to above. Management with IV fluids. Close monitoring. DVT prophylaxis. Teds and SCDs, Lovenox. CODE STATUS. The patient was to full code. The plan of care was discussed with the patient. He verbalized understanding and agreement. Attestations Medical Necessity Statement*: Observation Coding Level of Care Code Acute Lighting Specialist for Chente Yeager
[2021-02-22 21:39] VITALS: BP 144/82; PULSE 102; RESP 18; O2SAT 97
[2021-02-22 21:46] VITALS: BP 128/79; PULSE 110; RESP 20; TEMP 36.3; O2SAT 97
[2021-02-22] MEDS: HYDROcodone-acetaminophen 5-325 mg Tablet 1 TAB PO (21:59)
[2021-02-22] MEDS: sodium chloride 0.9% 1,000 ML 150 ML IV (22:00)
[2021-02-22] MEDS: enoxaparin 40 mg/0.4 mL Syringe SUBCUT (22:01)
[2021-02-22 23:36] LABS: Lactate (Lactic Acid level) 4.3 mmol/L (0.5-2.2)
[2021-02-23] VITALS (13 sets, daily range): BP systolic 109–145; BP diastolic 72–92; PULSE 77–103; RESP 16–24; TEMP 36.4–37.4; O2SAT 94–99
[2021-02-23] MEDS: morphine 4 mg/mL SDV 1 mL IVP ×2 (00:31→08:59)
[2021-02-23] MEDS: sodium chloride 0.9% 1,000 ML 999 ML IV (02:12)
[2021-02-23] MEDS: HYDROcodone-acetaminophen 5-325 mg Tablet 1 TAB PO ×2 (02:12→19:52)
[2021-02-23] MEDS: ibuprofen 200 mg Tablet PO ×2 (04:34→13:11)
[2021-02-23] MEDS: acetaminophen 325 mg Tablet 650 MG PO ×2 (04:35→18:54)
[2021-02-23] MEDS: sodium chloride 0.9% 1,000 ML 150 ML IV ×2 (05:17→11:49)
[2021-02-23 06:01] LABS: Basophils # 0.1 10^3/uL (0.0-0.1); Eosinophils # 0.2 10^3/uL (0.0-0.8); Eosinophils % 2.9 %; Hematocrit 39.3 % (42.0-52.0); Hemoglobin 12.3 g/dL (11.7-16.6); Lymphocytes # 1.2 10^3/uL (0.8-4.8); Lymphocytes % 23.2 %; Mean Corpuscular HGB Conc 31.3 g/dL (30.0-36.0); Mean Corpuscular Hemoglobin 32.2 pg (28.0-34.0); Mean Corpuscular Volume 102.9 fL (80-94); Mean Platelet Volume 9.6 fL (7.4-10.4); Monocytes # 0.4 10^3/uL (0.2-0.9); Monocytes % 7.3 %; Neutrophils % 65.2 %; Nucleated Red Blood Cells % 0 %; Platelet Count 264 10^3/cmm (130-400); Red Blood Count 3.82 10^6/uL (4.1-5.3); Red Cell Distribution Width 17.3 % (12.1-15.1); White Blood Count 5.2 10^3/uL (4.0-10.0)
[2021-02-23 06:22] LABS: Lactate (Lactic Acid level) 2.7 mmol/L (0.5-2.2)
[2021-02-23 06:26] LABS: Alanine Aminotransferase 29 U/L (0-41); Albumin Level 3.7 g/dL (3.5-5.2); Alkaline Phosphatase 63 IU/L (40-130); Blood Urea Nitrogen 14 mg/dL (6-20); Calcium 7.4 mg/dL (8.5-10.5); Carbon Dioxide 21 mmol/L (22-29); Chloride 99 mmol/L (98-107); Globulin 2.4 g/dL (1.3-4.6); Glomerular Filtration Rate 192.7 mL/min (90-130); Glucose 104 mg/dL (65-115); Magnesium 1.2 mg/dL (1.7-2.3); Osmolality Calculated 281 mOsm/kg (285-295); Slide Review Slide Review Perform; Sodium 135 mmol/L (136-145); Total Bilirubin 0.8 mg/dL (0.15-1.2); Total Protein 6.1 g/dL (6.6-8.7)
[2021-02-23 06:31] LABS: Anion Gap 19.7 (5-19); Aspartate Amino Transferase 35 U/L (0-40); Potassium 4.7 mmol/L (3.5-5.1)
[2021-02-23] MEDS: albuterol 8 gm MDI 2 PUFF INHALATION (07:53)
[2021-02-23] MEDS: ondansetron 2 mg/ML SDV 2 mL 4 MG IVP ×2 (08:55→18:51)
--- NOTE | 2021-02-23 14:24 | PC.NUTR ---
NUTR WT ASSESSMENT: Pt ht of 73 and wt of 326 lbs with BMI of 43.0 kg/m2 indicates MORBID OBESITY.
--- NOTE | 2021-02-23 18:28 | P.PN_ITS ---
Subjective Subjective: Interval history: Admitted overnight. On examination lying comfortably in bed. States he is having some nausea and belly pain. Last bowel movement was few days ago. States he is feels a lot better hydrated now. Denies any headache. Vitals/I&O/Wt Last Vital Signs Temp 97.5 F L 02/23/21 16:00 Pulse 77 02/23/21 16:00 Resp 16 02/23/21 16:00 BP 130/80 02/23/21 16:00 Pulse Ox 99 02/23/21 16:00 02/23/21 02/23/21 02/23/21 06:59 14:59 22:59 Intake Total 1000 / 3000 2100 / 2100 140 / 2240 Output Total 400 / 550 200 / 200 Balance 600 / 2450 1900 / 1900 140 / 2040 Weight last 48 hrs Weight 147.871 kg Physical Exam Narrative: EXAM NARRATIVE: The patient is awake alert and oriented. No acute distress. Mood and affect are appropriate. Responses are adequate. Skin is warm and dry. Moist mucous membranes. Eyes PERRL, extraocular muscles are intact Neck supple. No JVD Lungs clear bilaterally. No wheezes or crackles no respiratory distress Heart S1, S2, regular Abdomen soft, obese, nontender, bowel sounds are present. Ostomy is empty at this time. Visual portion of intestine seems to be pink, without evidence of infection. Extremities trace edema, no cyanosis or calf tenderness bilaterally Neuro evaluation is nonfocal. Data : 02/23/21 05:40 02/23/21 05:40 Micro: Microbiology 02/22/21 15:43 Blood Culture - Preliminary Blood NEGATIVE TO DATE 02/22/21 15:40 Blood Culture - Preliminary Blood NEGATIVE TO DATE A&P Additional A&P Information 30-year-old male with past medical history of recent sigmoid colectomy and colostomy placement due to complicated diverticulitis who is presenting with abdominal pain. He is found to have elevated lactic acid level suspected to be secondary to dehydration secondary to note drinking enough fluids due to fear of abdominal pain. CT did not show any acute findings except for mild induration of colostomy site in the subcutaneous fat. Hemodynamically stable. No evidence of infection at this time. Lactic acidosis: Most likely from dehydration. Trending down. 2.7 from 4.3 on admission. Patient has remained afebrile and hemodynamically stable overnight. He was sent and remains negative. Continue with normal saline use 100 cc/h. Abdominal pain: Recent sigmoid colectomy. Colostomy bag in place. Most likely secondary to constipation from severe dehydration. Continue IV hydration as above. Milk of magnesia as needed. [place] 5 every 8 hours as needed for pain. Dakin's wet-to-dry wound care. No signs of infection for now. Will hold off any further antibiotics. CT abdomen results appreciated. If he develops any fever will plan to start antibiotics at that time. Hyponatremia: Most likely from dehydration. Continue IV fluids. Hypomagnesemia/hypocalcemia: Replace accordingly. DVT prophylaxis. Teds and SCDs, Lovenox. CODE STATUS. The patient was to full code. The plan of care was discussed with the patient. He verbalized understanding and agreement. Attestations Medical Necessity Statement*: Patient for further hospitalization for management of lactic acidosis most likely from severe dehydration in setting of recent colectomy Time Spent in Patient Care: Greater than 35 minutes (>than 50% of time spent in counselling and/or direct pt care on unit) . Coding Level of Care Code Acute Fundraising Consultant for Chente Yeager
[2021-02-23] MEDS: magnesium hydroxide 30 mL UDC 15 ML PO (18:55)
[2021-02-23] MEDS: sodium chloride 0.9% 1,000 ML 100 ML IV (19:39)
[2021-02-23] MEDS: magnesium sulfate premix 2 GM/50 ML PIGGYBACK IV (19:40)
[2021-02-23 21:47] LABS: Procalcitonin 0.09 ng/mL (0-0.5)
[2021-02-23] MEDS: enoxaparin 40 mg/0.4 mL Syringe SUBCUT (22:33)
[2021-02-24] VITALS (11 sets, daily range): BP systolic 132–153; BP diastolic 85–94; PULSE 76–92; RESP 16–20; TEMP 36.4–37.1; O2SAT 97–100
[2021-02-24] MEDS: sodium chloride 0.9% 1,000 ML 100 ML IV ×2 (03:25→11:59)
[2021-02-24] MEDS: HYDROcodone-acetaminophen 5-325 mg Tablet 1 TAB PO ×2 (03:31→12:25)
[2021-02-24 07:54] LABS: Basophils % 0.9 %; Eosinophils # 0.2 10^3/uL (0.0-0.8); Eosinophils % 5.1 %; Hematocrit 34.4 % (42.0-52.0); Hemoglobin 11.2 g/dL (11.7-16.6); Lymphocytes # 1.4 10^3/uL (0.8-4.8); Lymphocytes % 41.7 %; Mean Corpuscular HGB Conc 32.6 g/dL (30.0-36.0); Mean Corpuscular Volume 101.5 fL (80-94); Mean Platelet Volume 9.8 fL (7.4-10.4); Monocytes # 0.3 10^3/uL (0.2-0.9); Monocytes % 7.9 %; Neutrophils # 1.46 10^3/uL (1.8-7.7); Neutrophils % 44.1 %; Nucleated Red Blood Cells % 0 %; Platelet Count 234 10^3/cmm (130-400); Red Blood Count 3.39 10^6/uL (4.1-5.3); Red Cell Distribution Width 16.9 % (12.1-15.1); White Blood Count 3.3 10^3/uL (4.0-10.0)
[2021-02-24 08:15] LABS: Lactate (Lactic Acid level) 2.3 mmol/L (0.5-2.2)
[2021-02-24 08:29] LABS: Procalcitonin 0.08 ng/mL (0-0.5)
[2021-02-24 08:42] LABS: Alanine Aminotransferase 38 U/L (0-41); Albumin Level 3.4 g/dL (3.5-5.2); Alkaline Phosphatase 62 IU/L (40-130); Anion Gap 12.8 (5-19); Aspartate Amino Transferase 43 U/L (0-40); Blood Urea Nitrogen 9 mg/dL (6-20); Calcium 7.4 mg/dL (8.5-10.5); Carbon Dioxide 26 mmol/L (22-29); Chloride 104 mmol/L (98-107); Glomerular Filtration Rate 192.7 mL/min (90-130); Glucose 131 mg/dL (65-115); Osmolality Calculated 288 mOsm/kg (285-295); Potassium 3.8 mmol/L (3.5-5.1); Sodium 139 mmol/L (136-145); Total Bilirubin 0.4 mg/dL (0.15-1.2); Total Protein 5.4 g/dL (6.6-8.7)
[2021-02-24] MEDS: morphine 4 mg/mL SDV 1 mL IVP (08:42)
[2021-02-24] MEDS: ondansetron 2 mg/ML SDV 2 mL 4 MG IVP (08:42)
[2021-02-24] MEDS: albuterol 8 gm MDI 2 PUFF INHALATION (08:59)
[2021-02-24] MEDS: magnesium oxide 400 mg tablet PO (09:27)
--- NOTE | 2021-02-24 11:39 | P.DS_ITS ---
Discharge Providers Date of Admission: 02/22/21 19:44 Date of Discharge: February 24, 2021 Attending Provider at Admission: Fidencio Woodson Attending Provider at Discharge: Magdiel Mart MD Reason for Visit Reason for Visit: abdominal pain/ surgical site complications Hospital Course Hospital Course Deepak Meyers is a 30 year old male with history of recent complicated diverticulitis requiring sigmoid colectomy and colostomy placement at [facility] in [place]. Today he presents with complaints of abdominal pain in the area colostomy for last 2 to 3 days associated with constipation. He was worried about his stoma. However he states that today he finally had a bowel movement with some improvement of the pain. In emergency room CT of the abdomen was done which showed expected postoperative changes. No acute findings. He also has mild induration at the colostomy site in the subcutaneous fat. He denies any fevers or chills. No nausea or vomiting. Denies any blood in the stool. He reports that his pain is a little better since he had bowel movement. Dr. Stoddard of ED spoke with on-call surgeon at [facility]. They evaluated the pictures. The surgeon recommended to admit him for observation and hydration. If no improvements of the symptoms or if he develops any other symptoms transferred to [facility] can be considered. Questions were none to the hospital was started on IV hydration. He responded well to the treatment and his lactate came down but remain elevated 2.4. Patient did not have any fever, hemodynamic instability during the hospitali zation. He remained off antibiotics his whole hospitalization. It is believed lactic acidosis most likely because of constipation along with severe dehydration and starvation. Patient states he has not been eating and drinking as much because he is scared of abdominal pain. We did discuss in detail need for proper nutrition, hydration along with need of laxatives for proper bowel movements. We also discussed the need of appropriate pain medications to make sure he is not in pain while also making sure that he does not get opiate- induced constipation. For now he is agreed to avoid opiates and will try to use other form of pain medications including Tylenol, ibuprofen or tramadol. Pain medications were discussed in detail at bedside. He is to follow-up with his primary care provider within next 1 week. He is to continue using a cane wet-to-dry dressing on his abdominal wound. Physical Exam Narrative: EXAM NARRATIVE: The patient is awake alert and oriented. No acute distress. Mood and affect are appropriate. Responses are adequate. Skin is warm and dry. Moist mucous membranes. Eyes PERRL, extraocular muscles are intact Neck supple. No JVD Lungs clear bilaterally. No wheezes or crackles no respiratory distress Heart S1, S2, regular Abdomen soft, obese, nontender, bowel sounds are present. Ostomy is empty at this time. Visual portion of intestine seems to be pink, without evidence of infection. Extremities trace edema, no cyanosis or calf tenderness bilaterally Neuro evaluation is nonfocal. Discharge Data Data Completed and Pending: Completed Studies During Hospitalization Category Date Time Status CT abdomen pelvis w con* [id number] Urge nt Cat Scan 02/22/21 13:45 Completed Pending at discharge Category Date Time Status Blood Culture Sta t Lab 02/22/21 15:43 Results Magnesium Routine Lab 02/24/21 06:10 Received Labs from last 24 hours 02/24/21 02/24/21 02/24/21 06:10 06:10 06:10 WBC RBC Hgb Hct MCV MCH MCHC RDW Plt Count MPV Neut % (Auto) Lymph % (Auto) [place] % (Auto) Eos % (Auto) Baso % (Auto) Neut # (Auto) Lymph # (Auto) [place] # (Auto) Eos # (Auto) Baso # (Auto) Nucleated RBC % (a uto) Nucleated RBCs # Sodium 139 Potassium 3.8 Chloride 104 Carbon Dioxide 26 Anion Gap 12.8 BUN 9 Creatinine 0.5 L GFR Calculation 192.7 H Glucose 131 H Calculated Osmolal ity 288 Lactate 2.3 H Calcium 7.4 L Magnesium Pending Total Bilirubin 0.4 AST 43 H ALT 38 Alkaline Phosphata se 62 Total Protein 5.4 L Albumin 3.4 L Globulin 2.0 Procalcitonin 0.08 02/24/21 02/23/21 06:10 05:40 WBC 3.3 L RBC 3.39 L Hgb 11.2 L Hct 34.4 L MCV 101.5 H MCH 33.0 MCHC 32.6 RDW 16.9 H Plt Count 234 MPV 9.8 Neut % (Auto) 44.1 Lymph % (Auto) 41.7 [place] % (Auto) 7.9 Eos % (Auto) 5.1 Baso % (Auto) 0.9 Neut # (Auto) 1.46 L Lymph # (Auto) 1.4 [place] # (Auto) 0.3 Eos # (Auto) 0.2 Baso # (Auto) 0.0 Nucleated RBC % (a uto) 0 Nucleated RBCs # 0.0 Sodium Potassium Chloride Carbon Dioxide Anion Gap BUN Creatinine GFR Calculation Glucose Calculated Osmolal ity Lactate Calcium Magnesium Total Bilirubin AST ALT Alkaline Phosphata se Total Protein Albumin Globulin Procalcitonin 0.09 Addt'l Data from Hospital Stay: Laboratory Results WBC 3.3 10^3/uL (4.0- 10.0) L 02/24/21 06:10 RBC 3.39 10^6/uL (4.1 -5.3) L 02/24/21 06:10 Hgb 11.2 g/dL (11.7-1 6.6) L 02/24/21 06:10 Hct 34.4 % (42.0-52.0 ) L 02/24/21 06:10 MCV 101.5 fL (80-94) H 02/24/21 06:10 MCH 33.0 pg (28.0-34. 0) 02/24/21 06:10 MCHC 32.6 g/dL (30.0-3 6.0) 02/24/21 06:10 RDW 16.9 % (12.1-15.1 ) H 02/24/21 06:10 Plt Count 234 10^3/cmm (130 -400) 02/24/21 06:10 MPV 9.8 fL (7.4-10.4) 02/24/21 06:10 Neut % (Auto) 44.1 % 02/24/21 06:10 Lymph % (Auto) 41.7 % 02/24/21 06:10 [place] % (Auto) 7.9 % 02/24/21 06:10 Eos % (Auto) 5.1 % 02/24/21 06:10 Baso % (Auto) 0.9 % 02/24/21 06:10 Neut # (Auto) 1.46 10^3/uL (1.8 -7.7) L 02/24/21 06:10 Lymph # (Auto) 1.4 10^3/uL (0.8- 4.8) 02/24/21 06:10 [place] # (Auto) 0.3 10^3/uL (0.2- 0.9) 02/24/21 06:10 Eos # (Auto) 0.2 10^3/uL (0.0- 0.8) 02/24/21 06:10 Baso # (Auto) 0.0 10^3/uL (0.0- 0.1) 02/24/21 06:10 Nucleated RBC % (a uto) 0 % 02/24/21 06:10 Nucleated RBCs # 0.0 /100WBC 02/24/21 06:10 Sodium 139 mmol/L (136-1 45) 02/24/21 06:10 Potassium 3.8 mmol/L (3.5-5 .1) 02/24/21 06:10 Chloride 104 mmol/L (98-10 7) 02/24/21 06:10 Carbon Dioxide 26 mmol/L (22-29) 02/24/21 06:10 Anion Gap 12.8 (5-19) 02/24/21 06:10 BUN 9 mg/dL (6-20) 02/24/21 06:10 Creatinine 0.5 mg/dL (0.7-1. 2) L 02/24/21 06:10 GFR Calculation 192.7 mL/min (90- 130) H 02/24/21 06:10 Glucose 131 mg/dL (65-115 ) H 02/24/21 06:10 Calculated Osmolal ity 288 mOsm/kg (285- 295) 02/24/21 06:10 Lactate 2.3 mmol/L (0.5-2 .2) H 02/24/21 06:10 Calcium 7.4 mg/dL (8.5-10 .5) L 02/24/21 06:10 Magnesium 1.2 mg/dL (1.7-2. 3) L 02/23/21 05:40 Total Bilirubin 0.4 mg/dL (0.15-1 .2) 02/24/21 06:10 AST 43 U/L (0-40) H 02/24/21 06:10 ALT 38 U/L (0-41) 02/24/21 06:10 Alkaline Phosphata se 62 IU/L (40-130) 02/24/21 06:10 C-Reactive Protein 1.6 mg/L (0.0-4.9 ) 02/22/21 14:00 Total Protein 5.4 g/dL (6.6-8.7 ) L 02/24/21 06:10 Albumin 3.4 g/dL (3.5-5.2 ) L 02/24/21 06:10 Globulin 2.0 g/dL (1.3-4.6 ) 02/24/21 06:10 Procalcitonin 0.08 ng/mL (0-0.5 ) 02/24/21 06:10 Urine Color Yellow (Yellow) 02/22/21 16:55 Urine Appearance Clear (CLEAR) 02/22/21 16:55 Urine pH 5 (5-7) 02/22/21 16:55 Ur Specific Gravit y 1.015 (1.005-1.0 30) 02/22/21 16:55 Urine Protein Trace (Negative) 02/22/21 16:55 Urine Glucose (UA) Norm (Normal) 02/22/21 16:55 Urine Ketones Negative (Negati ve) 02/22/21 16:55 Urine Blood Neg (Negative) 02/22/21 16:55 Urine Nitrate Negative (Negati ve) 02/22/21 16:55 Urine Bilirubin Neg (Negative) 02/22/21 16:55 Urine Urobilinogen Norm mg/dL (Negat brigid) 02/22/21 16:55 Ur Leukocyte Kate ase Negative (Negati ve) 02/22/21 16:55 Urine RBC None /hpf (0-2) 02/22/21 16:55 Urine WBC None /hpf (0-5) 02/22/21 16:55 Ur Squamous Epith Cells 0-4 /hpf (0-5) H 02/22/21 16:55 Amorphous Sediment Not Reportable 02/22/21 16:55 Urine Bacteria Trace /hpf (NONE) 02/22/21 16:55 Impressions Abdomen/Pelvis CT 02/22/21 13:45 IMPRESSION: 1. Mild induration at the colostomy site in the subcutaneous fat. No evidence of obstruction or drainable fluid collection. 2. No evidence of small or large bowel obstruction. Bowel is decompressed. 3. Prior postoperative changes sigmoid colon. 4. No other significant findings or changes from previous. Vitals: Last Vital Signs Temp 98.1 F 02/24/21 11:09 Pulse 92 02/24/21 11:09 Resp 18 02/24/21 11:09 BP 141/94 02/24/21 11:09 Pulse Ox 97 02/24/21 11:09 Discharge Plan Discharge Patient Disposition: Home Condition: Stable Prescriptions: New magnesium oxide 400 mg (241.3 mg magnesium) Tablet 400 mg PO BID Qty: 30 RF: 0 Milk of Magnesia 400 mg/5 mL Suspension 15 ml PO BEDTIME PRN (Reason: Constipation) Qty: 150 RF: 0 tramadol 50 mg tablet 50 mg PO Q12H PRN (Reason: pain) Qty: 10 RF: 0 ondansetron 4 mg tablet,disintegrating 4 mg PO Q8H PRN (Reason: nausea and vomiting) 4 Days Qty: 20 RF: 0 Continued ibuprofen 200 mg Tablet 200 mg PO Q6H PRN (Reason: Pain) RF: 0 acetaminophen [Tylenol Extra Strength] 500 mg Tablet 1,000 mg PO Q6H PRN (Reason: Pain) RF: 0 albuterol sulfate [ProAir HFA] 90 mcg/actuation HFA aerosol inhaler 2 puff INHALATION Q4H PRN (Reason: Shortness Of Breath) RF: 0 Discharge Orders: Discharge Order (Routine); Ordered 02/24/21 Ordered By: Magdiel Mart Discharge Diet: Regular Discharge Activity: Resume usual activity Patient Instructions: Opioid Safety Activity Restrictions/Additional Instructions: Follow-up with your primary care provider within next 1 week. Repeat lactate, BMP and magnesium with primary care provider. Make sure you maintain your hydration, fibrous food along with laxatives as needed. Discharge Attestations Time Spent in Discharge Care*: greater than 30 min Specific Discharge Activities: educating patient, discussing with caser up/social workers/dc planners, documenting/other paperwork and evaluating patient/reviewing data Status at Discharge: Cognitive status at discharge: cognitively intact , Behavioral status at discharge: cooperative , Functional status at discharge: other assisted ambulation Overall status at discharge: patient is back to baseline Quality Metrics Clinical Quality Measures During this hospital stay, did patient experience: None Coding Level of Care Code Acute Chg FW DC note
[2021-02-24 12:01] LABS: Magnesium 1.8 mg/dL (1.7-2.3)
== END 2021-02-24 15:50 | disposition home or self-care (01) ==
LOC: ER 13:08 → MEDSURG 20:08
PROVIDERS: Admitting Provider Internal Medicine; Emergency Provider Family Medicine; Visit Provider Student in an Organized Health Care Education/Training Program
DX: K94.09 Other complications of colostomy (principal); K59.00 Constipation, unspecified; Z90.49 Acquired absence of other specified parts of digestive tract; E66.01 Morbid (severe) obesity due to excess calories; Z68.41 Body mass index [BMI] 40.0-44.9, adult; Z87.891 Personal history of nicotine dependence
CPT/HCPCS: 36415; 74177; 80053; 81001; 83605; 83735; 84145; 85025; 86140; 87040; 94640; 96361; 96372; 96374; 96375; 99285; G0378; J0610; J1650; J2270; J2405; J2765; J3475; J3535; J7030; Q9967

== ENCOUNTER 2023-06-11 18:47 | Emergency (ER) | payer SELFPAY ==
--- NOTE | 2023-06-11 18:51 | ED_ITS ---
HPI - Abdominal Pain General: Chief Complaint: Abdominal Pain Stated Complaint: abd pain Time Seen by Provider: 06/11/23 18:50 History of Present Illness: 33-year-old male patient comes in today with complaints of abdominal pain. Patient has a history of diverticulitis with colectomy and colostomy in place. Patient is in today was changing some [employer] cables behind the TV and was resting his belly against the table slipped causing all of his weight to go down on his colostomy site. Patient reported increased pain and discomfort to his abdomen and noticed some blood in his colostomy bag. No large amount of blood is noted. Patient has no active bleeding. Associated Symptoms: Denies fever(s) Review of Systems General: Reports: 10 or more systems reviewed and unremarkable except in HPI and below Const: Denies: fever(s) Card: Denies: chest pain Resp: Denies: dyspnea GI: Reports: abdominal pain : Denies: difficulty urinating PFSH ED PFSH: Medical History (Reviewed 02/23/21 @ 00:00 by Tiffany Stoddard MD, [facility] [place] ) Asthma Diverticulitis of colon with perforation Morbid obesity with BMI of 45.0-49.9, adult Peritonitis, acute generalized Sepsis Staphylococcal infection of skin Surgical History History of appendectomy Family History Father Cancer Lung cancer, smoker in his late 40s Mother No problems noted. Social History (Reviewed 02/23/21 @ 00:00 by Tiffany Stoddard MD, [facility] [place]) Smoking and tobacco status: former smoker Alcohol intake: current Alcohol intake frequency: few times a month Substance/Drug Use: never Physical Exam Const: COMMON NORMALS: alert HENMT: COMMON NORMALS: normocephalic HEAD & SCALP: normocephalic MOUTH: Normal oral and palatal mucosa present Neck/C-Spine: COMMON NORMALS: full ROM Chest: COMMONS NORMALS: normal inspection of the chest Resp: COMMON NORMALS: normal respiratory effort Cardio: COMMON NORMALS: regular rate RATE: regular rate GI: COMMON NORMALS: Soft to palpation PALPATION: Yes Soft to palpation OTHER: Colostomy is intact, some light blood is noted in the colostomy bag with no active bleeding noted. Patient does have a superficial abrasion to the colostomy site. Extremity: COMMON NORMALS: normal to inspection Neuro: SENSORIUM/ORIENTATION: Yes alert Skin: COMMON NORMALS: turgor normal GENERAL SKIN EXAM: turgor normal Course Vital Signs: Vital signs: Vital Signs Temperature 99.6 F 06/11/23 18:57 Pulse Rate 123 H 06/11/23 21:03 Respiratory Rate 19 H 06/11/23 20:48 Blood Pressure 116/65 06/11/23 21:03 Pulse Oximetry 91 06/11/23 19:55 Oxygen Delivery Me thod Room Air 06/11/23 19:55 MDM - Abdominal Pain Medical Decision Making Patient was brought in today for concerns of abdominal pain. Patient was working on the back of his TV when he slipped causing his colostomy site to be impinged against a table side. Since then patient had increased pain to his abdomen and noticed some blood in his colostomy. Patient has some light blood in his colostomy but no active bleeding. There does appear to be a superficial abrasion to the colostomy tissue but no signs of laceration. Differential diagnosis includes GI bleed, abrasion, laceration, bowel obstruction, diverticulitis. CT noted a hernia in the colostomy stoma without any signs of obstruction or stranding. Laboratory values noted normal hemoglobin and hematocrit. Patient's sodium was low at 129. Patient was given 1 L of IV flu ids and medication for pain. Patient was recommended to follow-up with primary care for further evaluation and treatment or return to the ED for worsening symptoms such as persistent bleeding from ostomy site or inability to have stool. Lab Data 06/11/23 19:26 06/11/23 19:26 Labs/Radiology: Radiology Impressions Abdomen/Pelvis CT 06/11/23 18:53 IMPRESSION: 1. Left hemicolectomy with left colostomy and Otto's pouch. 2. Large stomal hernia containing multiple loops of nonobstructed small bowel and mesenteric fat. No fat stranding to suggest strangulation or incarceration. Laboratory Results WBC 7.7 10^3/uL (4.0-10.0) 06/11/23 19:26 RBC 4.40 10^6/uL (4.1-5.3) 06/11/23 19:26 Hgb 14.5 g/dL (11.7-16.6) 06/11/23 19: Hct 44.4 % (42.0-52.0) 06/11/23: MCV 100.9 fl (80-94) H 06/11/23: MCH 33.0 pg (28.0-34.0) 06/11/23: MCHC 32.7 g/dL (30.0-36.0) 06/11/23: RDW 16.8 % (12.1-15.1) H 06/11/23: Plt Count 74 10^3/cmm (130-400) L 06/11/23: MPV 12.0 fL (7.4-10.4) H 06/11/23: Neut % (Auto) 75.5 % 06/11/23: Lymph % (Auto) 18.2 % 06/11/23: [place] % (Auto) 3.8 % 06/11/23: Eos % (Auto) 1.6 % 06/11/23: Baso % (Auto) 0.5 % 06/11/23: Neut # (Auto) 5.81 10^3/uL (1.8-7.7) 06/11/23: Lymph # (Auto) 1.4 10^3/uL (0.8-4.8) 06/11/23: [place] # (Auto) 0.3 10^3/uL (0.2-0.9) 06/11/23: Eos # (Auto) 0.1 10^3/uL (0.0-0.8) 06/11/23: Baso # (Auto) 0.0 10^3/uL (0.0-0.1) 06/11/23: Nucleated RBC % (auto) 0 % 06/11/23 Nucleated RBCs # 0.0 /100WBC 06/11/23: Sodium 129 mmol/L (136-145) L 06/11/23: Potassium 4.1 mmol/L (3.5-5.1) 06/11/23: Chloride 96 mmol/L (98-107) L 08/10/23 19:26 Carbon Dioxide 18 mmol/L (22-29) L 06/11/23 19:26 Anion Gap 19.1 (5-19) H 06/11/23 19:26 BUN 14 mg/dL (6-20) 06/11/23 19:26 Creatinine 0.6 mg/dL (0.7-1.2) L 06/11/23 19:26 GFR Calculation 153.3 mL/min (90-130) H 06/11/23 19:26 Glucose 106 mg/dL (65-115) 06/11/23 19:26 Calculated Osmolality 269 mOsm/kg (285-295) L 06/11/23 19:26 Calcium 8.8 mg/dL (8.5-10.5) 06/11/23 19:26 Total Bilirubin 0.7 mg/dL (0.15-1.2) 06/11/23 19:26 AST 144 U/L (0-40) H 06/11/23 19:26 ALT 79 U/L (0-41) H 06/11/23 19:26 Alkaline Phosphatase 89 U/L (40-130) 06/11/23 19:26 Total Protein 7.6 g/dL (6.6-8.7) 06/11/23 19:26 Albumin 4.1 g/dL (3.5-5.2) 06/11/23 19:26 Globulin 3.5 g/dL (1.3-4.6) 06/11/23 19:26 Discharge Plan Discharge Patient Disposition: Home Clinical Impression: Status post partial colectomy, Hernia due to colostomy Condition: Stable Prescriptions: New hydrocodone-acetaminophen 5-325 mg tablet 1 tab PO Q8H PRN (Reason: pain (scale score 7-10)) Qty: 6 0RF No Action ibuprofen 200 mg Tablet 200 mg PO Q6H PRN (Reason: Pain) magnesium oxide 400 mg (241.3 mg magnesium) Tablet 400 mg PO BID Qty: 30 0RF Milk of Magnesia 400 mg/5 mL Suspension 15 ml PO BEDTIME PRN (Reason: Constipation) Qty: 150 0RF tramadol 50 mg tablet 50 mg PO Q12H PRN (Reason: pain) Qty: 10 0RF acetaminophen [Tylenol Extra Strength] 500 mg Tablet 1,000 mg PO Q6H PRN (Reason: Pain) albuterol sulfate [ProAir HFA] 90 mcg/actuation HFA aerosol inhaler 2 puff INHALATION Q4H PRN (Reason: Shortness Of Breath) Discharge Orders: Discharge ED (Routine); Ordered 06/11/23 Ordered By: Tone Guevara Discharge Diet: Usual diet Discharge Activity: Increase activity as tolerated Patient Instructions: Abdominal Pain (ED), Opioid Safety, Pain Management Activity Restrictions/Additional Instructions: Continue with routine diet and exercise. Drink plenty of water and fluids. Fo llow-up with primary care for further instructions. Return to ED for high fever, worsening abdominal pain, worsening bleeding from ostomy site, or new concerns. Coding Level of Care Code ED Document Examiner for Chente Yeager
--- NOTE | 2023-06-11 18:53 | CTR_ITS ---
PROCEDURE INFORMATION: Exam: CT Abdomen And Pelvis With Contrast Exam date and time: 06/11/2023 7:44 PM Age: 33 years old Clinical indication: Abdominal pain; Periumbilical; Prior surgery; Surgery date: 6+ months; Surgery type: Colostomy. Appy; Patient HX: C/O abd pain with bleeding around colostomy site. ; Additional info: Injury, HX of coloectomy TECHNIQUE: Imaging protocol: Computed tomography of the abdomen and pelvis with contrast. Radiation optimization: All CT scans at this facility use at least one of these dose optimization techniques: automated exposure control; mA and/or kV adjustment per patient size (includes targeted exams where dose is matched to clinical indication); or iterative reconstruction. Contrast material: OMNI 350; Contrast volume: 100 ml; Contrast route: INTRAVENOUS (IV); REPORTING DATA: Count of CT and Cardiac NM exams in prior 12 months: This patient has received 0 known CTs and 0 known cardiac nuclear medicine studies in the 12 months prior to the current study. COMPARISON: CT abdomen pelvis w con* [id number] 02/22/2021 2:47 PM RADIATION DOSE METRICS: Total DLP (mGy-cm): 1299.13 FINDINGS: Tubes, catheters and devices: Clips in the right lower quadrant. Liver: Focal fatty infiltration in the left liver lobe. No suspicious nodule. Gallbladder and bile ducts: Normal. No calcified stones. No ductal dilation. Pancreas: Normal. No ductal dilation. Spleen: Normal. No splenomegaly. Adrenal glands: Normal. No mass. Kidneys and ureters: Normal. No hydronephrosis. Stomach and bowel: Left hemicolectomy with terminal colostomy in the left abdominal wall. Long Otto's pouch. Large 14.0 cm stomal hernia containing multiple loops of nonobstructed small bowel and mesenteric fat. The stomach and small bowel are otherwise unremarkable. No wall thickening or obstruction. Appendix: The appendix is absent. Intraperitoneal space: Unremarkable. No free air. No significant fluid collection. Vasculature: Unremarkable. No abdominal aortic aneurysm. Lymph nodes: Unremarkable. No enlarged lymph nodes. Urinary bladder: Unremarkable as visualized. Reproductive: Unremarkable as visualized. Bones/joints: Degenerative changes of the spine and hip joints, greatest at L5-S1. No acute fracture. No acute fracture. Soft tissues: Anterior laparotomy scar. Small fat containing umbilical hernia. CT/CT abdomen pelvis w con* [id number] IMPRESSION: 1. Left hemicolectomy with left colostomy and Otto's pouch. 2. Large stomal hernia containing multiple loops of nonobstructed small bowel and mesenteric fat. No fat stranding to suggest strangulation or incarceration.
[2023-06-11 18:57] VITALS: BP 134/94; PULSE 120; RESP 22; TEMP 37.6; O2SAT 92; BMI 42.2
[2023-06-11] MEDS: sodium chloride 0.9% 1,000 ML 999 ML IV (19:05)
[2023-06-11 19:07] VITALS: RESP 18; O2SAT 93
[2023-06-11] MEDS: HYDROmorphone 1 mg/mL INJ 1 mL IVP (19:07)
[2023-06-11] MEDS: ondansetron 2 mg/ML SDV 2 mL 4 MG IVP (19:07)
[2023-06-11 19:38] LABS: Basophils % 0.5 %; Eosinophils # 0.1 10^3/uL (0.0-0.8); Eosinophils % 1.6 %; Hematocrit 44.4 % (42.0-52.0); Hemoglobin 14.5 g/dL (11.7-16.6); Lymphocytes # 1.4 10^3/uL (0.8-4.8); Lymphocytes % 18.2 %; Mean Corpuscular HGB Conc 32.7 g/dL (30.0-36.0); Mean Corpuscular Volume 100.9 fl (80-94); Monocytes # 0.3 10^3/uL (0.2-0.9); Monocytes % 3.8 %; Neutrophils # 5.81 10^3/uL (1.8-7.7); Neutrophils % 75.5 %; Nucleated Red Blood Cells % 0 %; Platelet Count 74 10^3/cmm (130-400); Red Cell Distribution Width 16.8 % (12.1-15.1); White Blood Count 7.7 10^3/uL (4.0-10.0)
[2023-06-11] MEDS: iohexol 350 mg/mL 500 mL Btl (per mL) IV (19:50)
[2023-06-11 19:55] VITALS: BP 99/87; PULSE 118; O2SAT 91
[2023-06-11 20:14] LABS: Alanine Aminotransferase 79 U/L (0-41); Albumin Level 4.1 g/dL (3.5-5.2); Alkaline Phosphatase 89 U/L (40-130); Blood Urea Nitrogen 14 mg/dL (6-20); Calcium 8.8 mg/dL (8.5-10.5); Carbon Dioxide 18 mmol/L (22-29); Chloride 96 mmol/L (98-107); Globulin 3.5 g/dL (1.3-4.6); Glomerular Filtration Rate 153.3 mL/min (90-130); Glucose 106 mg/dL (65-115); Osmolality Calculated 269 mOsm/kg (285-295); Sodium 129 mmol/L (136-145); Total Bilirubin 0.7 mg/dL (0.15-1.2); Total Protein 7.6 g/dL (6.6-8.7)
[2023-06-11 20:23] LABS: Anion Gap 19.1 (5-19); Aspartate Amino Transferase 144 U/L (0-40); Potassium 4.1 mmol/L (3.5-5.1)
[2023-06-11 20:48] VITALS: RESP 19
[2023-06-11] MEDS: metoclopramide 5 mg/mL SDV 2 mL 10 MG IVP (20:48)
[2023-06-11] MEDS: morphine 4 mg/mL SDV 1 mL IVP (20:48)
[2023-06-11 21:03] VITALS: BP 116/65; PULSE 123
== END 2023-06-11 21:20 | disposition home or self-care (01) ==
PROVIDERS: Emergency Provider Nurse Practitioner Family
DX: K94.09 Other complications of colostomy (principal); Z98.890 Other specified postprocedural states; Z87.891 Personal history of nicotine dependence; Y83.8 Other surgical procedures as the cause of abnormal reaction of the patient, or of later complication, without mention of misadventure at the time of the procedure
CPT/HCPCS: 74177; 80053; 85025; 96361; 96374; 96375; 99285; J1170; J2270; J2405; J2765; J7030; Q9967

== ENCOUNTER 2024-09-22 12:54 | Emergency (ER) | payer MEDICAID, SELFPAY ==
[2024-09-22 13:03] VITALS: BP 125/80; PULSE 90; TEMP 36.6; O2SAT 98; BMI 39.2
--- NOTE | 2024-09-22 13:08 | CTR_ITS ---
PROCEDURE INFORMATION: Exam: CT Abdomen And Pelvis With Contrast Exam date and time: 09/22/2024 1:43 PM Age: 34 years old Clinical indication: Abdominal pain; Generalized; Prior surgery; Surgery date: 6+ months; Surgery type: Colostomy x3 yrs ago; Additional info: Abd pain TECHNIQUE: Imaging protocol: Computed tomography of the abdomen and pelvis with contrast. Axial, coronal and sagittal reformatted images were created and reviewed. Radiation optimization: All CT scans at this facility use at least one of these dose optimization techniques: automated exposure control; mA and/or kV adjustment per patient size (includes targeted exams where dose is matched to clinical indication); or iterative reconstruction. Contrast material: OMNIPAQUE 350; Contrast volume: 100 ml; Contrast route: INTRAVENOUS (IV); COMPARISON: CT abdomen pelvis w con* [id number] 06/11/2023 7:44 PM RADIATION DOSE METRICS: Total DLP (mGy-cm): 1696.53 FINDINGS: Liver: Mild hepatomegaly. Gallbladder and biliary ducts: No radiodense gallstones. No biliary ductal dilatation. Pancreas: Unremarkable. Spleen: Mild splenomegaly. Adrenal glands: Normal. No mass. Kidneys and ureters: No mass. No radiodense calculi. No hydronephrosis. Stomach and bowel: Evidence of prior partial colectomy and left mid abdominal colostomy. Scattered colonic diverticula without evidence of diverticulitis. No obstruction. No bowel wall thickening. No pneumatosis. Appendix: Status post appendectomy. Intraperitoneal space: No free fluid. No organized fluid collection. No free air. Vasculature: Unremarkable. No aneurysm. Lymph nodes: No pathologically enlarged lymph nodes. Urinary bladder: Unremarkable as visualized. Reproductive: Unremarkable. Bones/joints: No acute osseous abnormality. Mild degenerative changes. Soft tissues: Parastomal hernia containing nonobstructed bowel. CT/CT abdomen pelvis w con* [id number]: 1[address] No CT evidence of acute intra-abdominal or pelvic pathology. 2. Additional findings, as above.
--- NOTE | 2024-09-22 13:09 | ED_ITS ---
HPI - Abdominal Pain 2 General: Chief Complaint: Abdominal Pain Stated Complaint: abd pain Time Seen by Provider: 09/22/24 13:05 Source: patient Mode of arrival: ambulatory Limitations: no limitations History of Present Illness: 34-year-old male who had a history of di verticulitis. He had to have a colectomy roughly 4 years ago he has had a colostomy since then. He states he has been having ongoing pain since his surgery is worsened over the last 4 to 5 months states he had seen Dr. Coughlin here he was getting follow-up at [facility] as he believes he may have a stomal hernia. He denies any vomiting denies any fever rates his pain a 3 out of 10 currently Related Data Home Medications Medication Instructions Recorded Confirmed acetaminophen 500 mg tablet 1,000 mg PO Q6H PRN Pain 01/10/21 09/22/24 (Tylenol Extra Strength) ibuprofen 200 mg tablet 200 mg PO Q6H PRN Pain 01/29/21 09/22/24 dicyclomine 20 mg tablet 20 mg PO TID 09/22/24 09/22/24 doxycycline hyclate 100 mg capsule 100 mg PO BID 09/22/24 09/22/24 ondansetron HCl 4 mg tablet 4 mg PO Q6H 09/22/24 09/22/24 Previous Rx's Medication Instructions Recorded hydrocodone 7.5 mg-acetaminophen 1 tab PO Q6H PRN pain 5 days #20 09/15/24 325 mg tablet tabs Allergies Allergy/AdvReac Type Severity Reaction Status Date / Time beans Allergy ALGY-Anaphy Uncoded 09/22/24 13:06 laxis [facility] ED 2 PFSH: Medical History (Updated 09/22/24 @ 14:15 by Keren Jeffers MD) History of MRSA infection Sepsis Macrocytic anemia Staphylococcal infection of skin Morbid obesity with BMI of 45.0-49.9, adult Bacteremia Tooth infection Asthma Diverticulitis of colon with perforation Peritonitis, acute generalized Surgical History (Updated 09/15/24 @ 09:57 by Dhruv Coughlin DO) History of tonsillectomy History of colostomy 2020 History of appendectomy Family History Father Cancer Lung cancer, smoker in his late 40s Mother No problems noted. Social History Smoking and tobacco/nicotine status: former use of tobacco/nicotine Alcohol intake: current Alcohol intake frequency: few times a month Substance/Drug Use: never Physical Exam 2 Const: COMMON NORMALS: no acute distress, patient oriented x3 and healthy appearing HENMT: COMMON NORMALS: normocephalic and atraumatic HEAD & SCALP: n ormocephalic and atraumatic Neck/C-Spine: COMMON NORMALS: full ROM and supple Chest: COMMONS NORMALS: normal inspection of the chest Resp: COMMON NORMALS: normal respiratory effort, No retractions, No use of accessory muscles and clear to auscultation bilaterally AUSCULTATION: clear to auscultation bilaterally Cardio: COMMON NORMALS: regular rate, regular rhythm and No murmurs present (Cardio) RATE: regular rate RHYTHM: regular rhythm GI: COMMON NORMALS: Soft to palpation and no masses PALPATION: Yes Soft to palpation OTHER: Stoma present some left-sided tenderness abdomen is not rigid. Extremity: COMMON NORMALS: normal to inspection and full ROM Neuro: COMMON NORMALS: patient oriented x3, moves all extremities and no focal motor deficits Psych: COMMON NORMALS: mental status grossly normal, Normal thought process present and cooperative THOUGHT PROCESS: Normal thought process present Skin: COMMON NORMALS: no rashes or lesions noted and no wounds GENERAL SKIN EXAM: no rashes or lesions noted Course 2 Vital Signs: Vital signs: Vital Signs Temperature 97.8 F 09/22/24 13:03 Pulse Rate 95 09/22/24 13:22 Blood Pressure 125/80 09/22/24 13:22 Pulse Oximetry 94 09/22/24 13:37 Oxygen Delivery Me thod Room Air 09/22/24 13:37 MDM - Abdominal Pain Medical Decision Making Patient presents here with abdominal pains been going ongoing for months. Imaging here shows no acute findings he is stable for discharge she is to follow-up with PCP and return if worsening he understands agrees to plan Medical Records I reviewed the patient's medical records. Lab Data I reviewed the patient's lab results. 09/22/24 13:17 09/22/24 13:17 Labs/Radiology: Radiology Impressions Abdomen/Pelvis CT 09/22/24 13:08 IMPRESSION: 1. No CT evidence of acute intra-abdominal or pelvic pathology. 2. Additional findings, as above. Laboratory Results WBC 9.17 10^3/uL (3.29-11.43) 09/22/24 13:17 RBC 5.01 10^6/uL (3.85-5.65) 09/22/24 13:17 Hgb 16.20 g/dL (11.27-16.99) 09/22/24 13:17 Hct 48.7 % (37-53) 09/22/24 13:17 MCV 97.2 fl (82-101) 09/22/24 13:17 MCH 32.3 pg (27-33) 09/22/24 13:17 MCHC 33.3 g/dL (30-55) 09/22/24 13:17 RDW 13.0 % (12.1-15.1) 09/22/24 13:17 Plt Count 174 10^3/cmm (157-399) 09/22/24 13:17 MPV 10.1 fL (7.4-10.4) 09/22/24 13:17 Neut % (Auto) 69.4 % 09/22/24 13:17 Lymph % (Auto) 20.0 % 09/22/24 13:17 [place] % (Auto) 7.0 % 09/22/24 13:17 Eos % (Auto) 2.3 % 09/22/24 13:17 Baso % (Auto) 1.0 % 09/22/24 13:17 Neut # (Auto) 6.37 10^3/uL (1.8-7.7) 09/22/24 13:17 Lymph # (Auto) 1.8 10^3/uL (0.8-4.8) 09/22/24 13:17 [place] # (Auto) 0.6 10^3/uL (0.2-0.9) 09/22/24 13:17 Eos # (Auto) 0.2 10^3/uL (0.0-0.8) 09/22/24 13:17 Baso # (Auto) 0.1 10^3/uL (0.0-0.1) 09/22/24 13:17 Nucleated RBC % (auto) 0 % 09/22/24 13:17 Nucleated RBCs # 0.0 /100WBC 09/22/24 13:17 Sodium 139 mmol/L (136-145) 09/22/24 13:17 Potassium 4.9 mmol/L (3.5-5.1) 09/22/24 13:17 Chloride 102 mmol/L (98-107) 09/22/24 13:17 Carbon Dioxide 27 mmol/L (22-29) 09/22/24 13:17 Anion Gap 14.9 (5-19) 09/22/24 13:17 BUN 8 mg/dL (6-20) 09/22/24 13:17 Creatinine 0.6 mg/dL (0.7-1.2) L 09/22/24 13:17 GFR Calculation 152.4 mL/min (90-130) H 09/22/24 13:17 Glucose 108 mg/dL (65-115) 09/22/24 13:17 Calculated Osmolality 287 mOsm/kg (285-295) 09/22/24 13:17 Calcium 9.3 mg/dL (8.5-10.5) 09/22/24 13:17 Total Bilirubin 0.4 mg/dL (0.15-1.2) 09/22/24 13:17 AST 27 U/L (0-40) 09/22/24 13:17 ALT 33 U/L (0-41) 09/22/24 13:17 Alkaline Phosphatase 105 U/L (40-130) 09/22/24 13:17 Total Protein 7.3 g/dL (6.6-8.7) 09/22/24 13:17 Albumin 4.5 g/dL (3.5-5.2) 09/22/24 13:17 Globulin 2.8 g/dL (1.3-4.6) 09/22/24 13:17 Lipase 18 U/L (13-60) 09/22/24 13:17 All radiology interpretation(s) finalized by discharge Discharge Plan Discharge Patient Disposition: Home Clinical Impression: Abdominal pain Condition: Stable Prescriptions: No Action hydrocodone-acetaminophen 7.5-325 mg tablet 1 tab PO Q6H PRN (Reason: pain) 5 Days Qty: 20 0RF ibuprofen 200 mg Tablet 200 mg PO Q6H PRN (Reason: Pain) acetaminophen [Tylenol Extra Strength] 500 mg Tablet 1,000 mg PO Q6H PRN (Reason: Pain) doxycycline hyclate 100 mg capsule 100 mg PO BID ondansetron HCl 4 mg tablet 4 mg PO Q6H dicyclomine 20 mg tablet 20 mg PO TID Discharge Orders: Discharge ED (Routine); Ordered 09/22/24 Ordered By: Keren Jeffers Discharge Diet: Advance as tolerated Discharge Activity: Resume usual activity Patient Instructions: Abdominal Pain (ED) Coding Level of Care Code ED Wheel [employer] Clerk for Chente Yeager
[2024-09-22] MEDS: ondansetron 2 mg/ML SDV 2 mL 4 MG IVP (13:18)
[2024-09-22] MEDS: morphine 4 mg/mL SDV 1 mL IVP (13:20)
[2024-09-22 13:22] VITALS: BP 125/80; PULSE 95; O2SAT 97
[2024-09-22 13:27] LABS: Basophils # 0.1 10^3/uL (0.0-0.1); Eosinophils # 0.2 10^3/uL (0.0-0.8); Eosinophils % 2.3 %; Hematocrit 48.7 % (37-53); Lymphocytes # 1.8 10^3/uL (0.8-4.8); Mean Corpuscular HGB Conc 33.3 g/dL (30-55); Mean Corpuscular Hemoglobin 32.3 pg (27-33); Mean Corpuscular Volume 97.2 fl (82-101); Mean Platelet Volume 10.1 fL (7.4-10.4); Monocytes # 0.6 10^3/uL (0.2-0.9); Neutrophils # 6.37 10^3/uL (1.8-7.7); Neutrophils % 69.4 %; Nucleated Red Blood Cells % 0 %; Platelet Count 174 10^3/cmm (157-399); Red Blood Count 5.01 10^6/uL (3.85-5.65); White Blood Count 9.17 10^3/uL (3.29-11.43)
[2024-09-22 13:37] VITALS: O2SAT 94
[2024-09-22 13:43] LABS: Alanine Aminotransferase 33 U/L (0-41); Albumin Level 4.5 g/dL (3.5-5.2); Alkaline Phosphatase 105 U/L (40-130); Anion Gap 14.9 (5-19); Aspartate Amino Transferase 27 U/L (0-40); Blood Urea Nitrogen 8 mg/dL (6-20); Calcium 9.3 mg/dL (8.5-10.5); Carbon Dioxide 27 mmol/L (22-29); Chloride 102 mmol/L (98-107); Creatinine Clr Calc Pharmacy 245.1386; Globulin 2.8 g/dL (1.3-4.6); Glomerular Filtration Rate 152.4 mL/min (90-130); Glucose 108 mg/dL (65-115); Lipase 18 U/L (13-60); Osmolality Calculated 287 mOsm/kg (285-295); Potassium 4.9 mmol/L (3.5-5.1); Sodium 139 mmol/L (136-145); Total Bilirubin 0.4 mg/dL (0.15-1.2); Total Protein 7.3 g/dL (6.6-8.7)
[2024-09-22] MEDS: iohexol 350 mg/mL 500 mL Btl (per mL) IV (13:46)
[2024-09-22 14:25] VITALS: BP 115/71; PULSE 73; O2SAT 98
== END 2024-09-22 14:26 | disposition home or self-care (01) ==
PROVIDERS: Emergency Provider Emergency Medicine
DX: R10.9 Unspecified abdominal pain (principal); Z87.891 Personal history of nicotine dependence
CPT/HCPCS: 36415; 74177; 80053; 83690; 85025; 96374; 96375; 99285; J2270; J2405

== ENCOUNTER 2024-12-07 13:13 | Emergency (ER) | payer MEDICAID, SELFPAY ==
[2024-12-07 13:49] VITALS: BP 137/77; PULSE 91; RESP 17; TEMP 37; O2SAT 98; BMI 37.8
--- NOTE | 2024-12-07 14:04 | ED_ITS ---
Documented by User: Kika Rajan MD 12/07/24 17:53 HPI - Abdominal Pain 2 General: Chief Complaint: Abdominal Pain Stated Complaint: abdominal pain Time Seen by Provider: 12/07/24 13:59 History of Present Illness: 34-year-old man with a history of divert iculitis status post perforation in the past with ostomy placement and then takedown a month or so ago. He presents emergency room today with abdominal pain and nausea. He is had no vomiting. He is had normal bowel movements. He is been passing gas. He complains of pain in his central abdomen and epigastric area. He says he just wanted to be careful. This been present for couple of days now. No dysuria. No chest pain. No fevers. Related Data Home Medications ?Medication ?Instructions ?Recorded ?Confirmed acetaminophen 500 mg tablet 1,000 mg PO Q6H PRN Pain 0 01/10/21 12/07/24 (Tylenol Extra Strength) gabapentin 300 mg capsule 300 mg PO TID 12/07/2412/07 ibuprofen 600 mg tablet 600 mg PO BID 12/07/2412/07 tramadol 50 mg tablet 50 - 100 mg PO Q6H 12/07/24 12/07/24 Previous Rx's ?Medication ?Instructions ?Recorded hydrocodone 5 mg-acetaminophen 325 1 tab PO Q6H PRN pa in #14 tabs 12/07/24 mg tablet ondansetron HCl 4 mg tablet 4 mg PO Q8H PRN nausea and 12/07/24 vomiting #14 tabs Allergies Allergy/AdvReac Type Severity Reaction Status Date / Time lisinopril Allergy ALGY-Anaphy Verified 12/07/24 13:58 laxis beans Allergy ALGY-Anaphy Uncoded 09/22/24 13:06 laxis Review of Systems 2 Narrative: Constitutional symptoms: Negative except as documented in HPI. Skin symptoms: Negative except as documented in HPI. Eye symptoms: Negative except as documented in HPI. ENMT symptoms: Negative except as documented in HPI. Respiratory symptoms: Negative except as documented in HPI. Cardiovascular symptoms: Negative except as documented in HPI. Gastrointestinal symptoms: Negative except as documented in HPI. Genitourinary symptoms: Negative except as documented in HPI. Musculoskeletal symptoms: Negative except as documented in HPI. Neurologic symptoms: Negative except as documented in HPI. Psychiatric symptoms: Negative except as documented in HPI. Endocrine symptoms: Negative except as documented in HPI. PFSH ED 2 PFSH: Medical History (Updated 12/07/24 @ 18:32 by Isai Schwartz DO) History of MRSA infection Sepsis Macrocytic anemia Staphylococcal infection of skin Morbid obesity with BMI of 45.0-49.9, adult Bacteremia Tooth infection Asthma Diverticulitis of colon with perforation Peritonitis, acute generalized Surgical History (Updated 09/15/24 @ 09:57 by Dhruv Coughlin DO) History of tonsillectomy History of colostomy 2020 History of appendectomy Family History Father Cancer Lung cancer, smoker in his late 40s Mother No problems noted. Social History Smoking and tobacco/nicotine status: former use of tobacco/nicotine Alcohol intake: current Alcohol intake frequency: few times a month Substance/Drug Use: never Physical Exam 2 Narrative: EXAM NARRATIVE: General: Alert, no acute distress. Skin: Warm, dry. Head: Normocephalic, atraumatic. Neck: Supple, trachea midline. Eye: Extraocular movements are intact. Ears, nose, mouth and throat: mucosa moist. Cardiovascular: Regular, Normal peripheral perfusion. Respiratory: Lungs are clear to auscultation, respirations are non-labored, breath sounds are equal, Symmetrical chest wall expansion. Gastrointestinal: Soft, central abdominal tenderness just to the right of his incision site, Non distended. Incision is healing well. Intact. Musculoskeletal: Normal ROM, no deformity. Neurological: Alert and oriented, No focal neurological deficit observed. Psychiatric: Cooperative, appropriate mood & affect. Course 2 Vital Signs: Vital signs: Vital Signs Temperature 98.6 F 12/07/24 13:49 Pulse Rate 76 12/07/24 17:23 Respiratory Rate 18 12/07/24 15:01 Blood Pressure 126/76 12/07/24 17:23 Pulse Oximetry 98 12/07/24 17:23 Oxygen Delivery Me thod Room Air 12/07/24 13:49 MDM - Abdominal Pain Medical Decision Making Patient had surgical reversal by Dr. Hernandez at [facility] on December 02. Developed abdominal pain yesterday. I reviewed the patient's medical record. Lab Review: Laboratory results were reviewed and interpreted by myself the emergency room physician. Lab work is unremarkable. No leukocytosis. No anemia. No renal failure. Urinalysis is negative for infection. Flu COVID and RSV are negative. CT of the abdomen pelvis with contrast: Mild inflammation of the gallbladder. However patient does not have any tenderness to palpation in his right upper quadrant. No Sidhu sign. Reversal of left colostomy. There is a tiny focus of air to the left of the surgical anastomosis which appears to be external to the lumen. Radiologist has concern for perforation. Consultation: I spoke Dr. Coughlin who has seen the patient in the past and sent him for reversal, however he cannot look at the films today and recommends that I call the operating surgeon at [facility] and discussed this with him. Patient care transitioned to Dr. Schwartz at shift change. I have consulted [facility] and awaiting for callback. Apparently the surgeon on-call is in the operating room at this point. I been waiting for about an hour and a half at this point. Patient has required a couple doses of Dilaudid for pain. Lab Data 12/07/24 14:42 12/07/24 14:42 Labs/Radiology: Radiology Impressions Abdomen/Pelvis CT 12/07/24 14:07 IMPRESSION: 1. Mild inflammation at the gallbladder fossa with mild gallbladder wall enhancement. Suggest evaluation by ultrasound for acute cholecystitis. No hepatobiliary dilatation. 2. Patient has undergone reversal of the LEFT colostomy since 09/22/2024. 3. Surgical anastomotic site deep within the pelvis is identified. There is tiny focus of air to the LEFT of the surgical anastomosis which appears to be external to the lumen. Potentially this could be a small perforation or even a small diverticulum. Recommend evaluation for possible dehiscence/perforation along the surgical anastomotic site. No abscess or free fluid at this time. Laboratory Results WBC 9.41 10^3/uL (3.29-11.43) 12/07/24 14:42 RBC 4.85 10^6/uL (3.85-5.65) 12/07/24 14:42 Hgb 15.70 g/dL (11.27-16.99) 12/07/24 14:42 Hct 46.4 % (37-53) 12/07/24 14:42 MCV 95.7 fl (82-101) 12/07/24 14:42 MCH 32.4 pg (27-33) 12/07/24 14:42 MCHC 33.8 g/dL (30-55) 12/07/24 14:42 RDW 12.4 % (12.1-15.1) 12/07/24 14:42 Plt Count 186 10^3/cmm (157-399) 12/07/24 14:42 MPV 10.2 fL (7.4-10.4) 12/07/24 14:42 Neut % (Auto) 69.2 % 12/07/24 14:42 Lymph % (Auto) 19.3 % 12/07/24 14:42 Tucker % (Auto) 7.8 % 12/07/24 14:42 Eos % (Auto) 2.4 % 12/07/24 14:42 Baso % (Auto) 0.7 % 12/07/24 14:42 Neut # (Auto) 6.50 10^3/uL (1.8-7.7) 12/07/24 14:42 Lymph # (Auto) 1.8 10^3/uL (0.8-4.8) 12/07/24 14:42 Tucker # (Auto) 0.7 10^3/uL (0.2-0.9) 12/07/24 14:42 Eos # (Auto) 0.2 10^3/uL (0.0-0.8) 12/07/24 14:42 Baso # (Auto) 0.1 10^3/uL (0.0-0.1) 12/07/24 14:42 Nucleated RBC % (auto) 0 % 12/07/24 14:42 Nucleated RBCs # 0.0 /100WBC 12/07/24 14:42 Sodium 136 mmol/L (136-145) 12/07/24 14:42 Potassium 4.1 mmol/L (3.5-5.1) 12/07/24 14:42 Chloride 100 mmol/L (98-107) 12/07/24 14:42 Carbon Dioxide 26 mmol/L (22-29) 12/07/24 14:42 Anion Gap 14.1 (5-19) 12/07/24 14:42 BUN 9 mg/dL (6-20) 12/07/24 14:42 Creatinine 0.7 mg/dL (0.7-1.2) 12/07/24 14:42 GFR Calculation 127.6 mL/min (90-130) 12/07/24 14:42 Glucose 93 mg/dL (65-115) 12/07/24 14:42 Calculated Osmolality 280 mOsm/kg (285-295) L 12/07/24 14:42 Calcium 9.1 mg/dL (8.5-10.5) 12/07/24 14:42 Total Bilirubin 0.4 mg/dL (0.15-1.2) 12/07/24 14:42 AST 21 U/L (0-40) 12/07/24 14:42 ALT 26 U/L (0-41) 12/07/24 14:42 Alkaline Phosphatase 127 U/L (40-130) 12/07/24 14:42 Total Protein 7.4 g/dL (6.6-8.7) 12/07/24 14:42 Albumin 4.4 g/dL (3.5-5.2) 12/07/24 14:42 Globulin 3.0 g/dL (1.3-4.6) 12/07/24 14:42 Lipase 18 U/L (13-60) 12/07/24 14:42 Urine Color Dark yellow (Yellow) A 12/07/24 15:20 Urine Appearance Clear (CLEAR) 12/07/24 15:20 Urine pH 5.5 (5-7) 12/07/24 15:20 Ur Specific [place] 1.041 (1.005-1.030) H 12/07/24 15:20 Urine Protein Trace (Negative) A 12/07/24 15:20 Urine Glucose (UA) Negative (Normal) 12/07/24 15:20 Urine Ketones 1+ (Negative) H 12/07/24 15:20 Urine Blood Negative (Negative) 12/07/24 15:20 Urine Nitrate Negative (Negative) 12/07/24 15:20 Urine Bilirubin 1+ (Negative) H 12/07/24 15:20 Urine Urobilinogen 1.0 mg/dL (Negative) 12/07/24 15:20 Ur Leukocyte Esterase Negative (Negative) 12/07/24 15:20 Urine RBC 0-2 /hpf (0-2) 12/07/24 15:20 Urine WBC 0-5 /hpf (0-5) 12/07/24 15:20 Ur Squamous Epith Cells 0-5 /hpf (0-5) 12/07/24 15:20 Amorphous Sediment Not Reportable 12/07/24 15:20 Urine Bacteria None seen /hpf (NONE) 12/07/24 15:20 Hyaline Casts 3.30 /lpf 12/07/24 15:20 Coronavirus (PCR) Negative (Negative) 12/07/24 15:02 Influenza A (PCR) Negative (Negative) 12/07/24 15:02 Influenza Type B (PCR) Negative (Negative) 12/07/24 15:02 RSV (PCR) Negative (Negative) 12/07/24 15:02 Discharge Plan Discharge Patient Disposition: Home Clinical Impression: Abdominal pain Condition: Stable Prescriptions: New hydrocodone-acetaminophen 5-325 mg tablet 1 tab PO Q6H PRN (Reason: pain) Qty: 14 0RF ondansetron HCl 4 mg tablet 4 mg PO Q8H PRN (Reason: nausea and vomiting) Qty: 14 0RF No Action acetaminophen [Tylenol Extra Strength] 500 mg Tablet 1,000 mg PO Q6H PRN (Reason: Pain) tramadol 50 mg tablet 50 - 100 mg PO Q6H gabapentin 300 mg capsule 300 mg PO TID ibuprofen 600 mg tablet 600 mg PO BID Discharge Orders: Discharge ED (Routine); Ordered 12/07/24 Ordered By: Isai Schwartz Patient Instructions: Abdominal Pain (ED), Opioid Safety, Pain Management Activity Restrictions/Additional Instructions: Please call Dr. Galvez office first thing tomorrow morning during business hours and arrange close follow-up for your condition. He had been prescribed pain medicine and nausea medicine. Please pick them up at your pharmacy and take them as directed. If your pain worsens or becomes uncontrollable please feel free to return to the ER. Print Language: Prydeinig Coding Level of Care Code ED [employer] Counselor for Chg Fwd Documented by User: Isai Schwartz DO 12/07/24 18:33 HPI - Abdominal Pain 2 General: Chief Complaint: Abdominal Pain Stated Complaint: abdominal pain Time Seen by Provider: 12/07/24 13:59 Related Data Home Medications ?Medication ?Instructions ?Recorded ?Confirmed acetaminophen 500 mg tablet 1,000 mg PO Q6H PRN Pain 0 01/10/21 12/07/24 (Tylenol Extra Strength) gabapentin 300 mg capsule 300 mg PO TID 12/07/2412/07 ibuprofen 600 mg tablet 600 mg PO BID 12/07/2412/07 tramadol 50 mg tablet 50 - 100 mg PO Q6H 12/07/24 12/07/24 Previous Rx's ?Medication ?Instructions ?Recorded hydrocodone 5 mg-acetaminophen 325 1 tab PO Q6H PRN pa in #14 tabs 12/07/24 mg tablet ondansetron HCl 4 mg tablet 4 mg PO Q8H PRN nausea and 12/07/24 vomiting #14 tabs Allergies Allergy/AdvReac Type Severity Reaction Status Date / Time lisinopril Allergy ALGY-Anaphy Verified 12/07/24 13:58 laxis beans Allergy ALGY-Anaphy Uncoded 09/22/24 13:06 laxis PFSH ED 2 PFSH: Medical History (Updated 12/07/24 @ 18:32 by Isai Schwartz DO) History of MRSA infection Sepsis Macrocytic anemia Staphylococcal infection of skin Morbid obesity with BMI of 45.0-49.9, adult Bacteremia Tooth infection Asthma Diverticulitis of colon with perforation Peritonitis, acute generalized Surgical History (Updated 09/15/24 @ 09:57 by Dhruv Coughlin DO) History of tonsillectomy History of colostomy 2020 History of appendectomy Family History Father Cancer Lung cancer, smoker in his late 40s Mother No problems noted. Social History Smoking and tobacco/nicotine status: former use of tobacco/nicotine Alcohol intake: current Alcohol intake frequency: few times a month Substance/Drug Use: never Course 2 Vital Signs: Vital signs: Vital Signs Temperature 98.6 F 12/07/24 13:49 Pulse Rate 76 12/07/24 17:23 Respiratory Rate 18 12/07/24 15:01 Blood Pressure 126/76 12/07/24 17:23 Pulse Oximetry 98 12/07/24 17:23 Oxygen Delivery Me thod Room Air 12/07/24 13:49 MDM - Abdominal Pain Medical Decision Making Patient had surgical reversal by Dr. Hernandez at [facility] in [place] on December 02. Developed abdominal pain yesterday. I reviewed the patient's medical record. Lab Review: Laboratory results were reviewed and interpreted by myself the emergency room physician. Lab work is unremarkable. No leukocytosis. No anemia. No renal failure. Urinalysis is negative for infection. Flu COVID and RSV are negative. CT of the abdomen pelvis with contrast: Mild inflammation of the gallbladder. However patient does not have any tenderness to palpation in his right upper quadrant. No Sidhu sign. Reversal of left colostomy. There is a tiny focus of air to the left of the surgical anastomosis which appears to be external to the lumen. Radiologist has concern for perforation. Consultation: I spoke Dr. Coughlin who has seen the patient in the past and sent him for reversal, however he cannot look at the films today and recommends that I call the operating surgeon at [facility] and discussed this with him. Patient care transitioned to Dr. Schwartz at shift change. I have consulted [facility] and awaiting for callback. Apparently the surgeon on-call is in the operating room at this point. I been waiting for about an hour and a half at this point. Patient has required a couple doses of Dilaudid for pain. Discussed this case with the doctor on-call for Dr. Hernandez because he was still in surgery, reviewed physical exam, lab work and CT findings. He said since the procedure was approximately 1 month ago and patient does not appear to be very sick or septic that if we get his pain under control he can follow-up with Dr. Pinto in the office sometime later this week. I discussed this with the patient and patient is agreeable. Medical Records I reviewed the patient's medical records. Lab Data I reviewed the patient's lab results. 12/07/24 14:42 12/07/24 14:42 Labs/Radiology: Radiology Impressions Abdomen/Pelvis CT 12/07/24 14:07 IMPRESSION: 1. Mild inflammation at the gallbladder fossa with mild gallbladder wall enhancement. Suggest evaluation by ultrasound for acute cholecystitis. No hepatobiliary dilatation. 2. Patient has undergone reversal of the LEFT colostomy since 09/22/2024. 3. Surgical anastomotic site deep within the pelvis is identified. There is tiny focus of air to the LEFT of the surgical anastomosis which appears to be external to the lumen. Potentially this could be a small perforation or even a small diverticulum. Recommend evaluation for possible dehiscence/perforation along the surgical anastomotic site. No abscess or free fluid at this time. Laboratory Results WBC 9.41 10^3/uL (3.29-11.43) 12/07/24 14:42 RBC 4.85 10^6/uL (3.85-5.65) 12/07/24 14:42 Hgb 15.70 g/dL (11.27-16.99) 12/07/24 14:42 Hct 46.4 % (37-53) 12/07/24 14:42 MCV 95.7 fl (82-101) 12/07/24 14:42 MCH 32.4 pg (27-33) 12/07/24 14:42 MCHC 33.8 g/dL (30-55) 12/07/24 14:42 RDW 12.4 % (12.1-15.1) 12/07/24 14:42 Plt Count 186 10^3/cmm (157-399) 12/07/24 14:42 MPV 10.2 fL (7.4-10.4) 12/07/24 14:42 Neut % (Auto) 69.2 % 12/07/24 14:42 Lymph % (Auto) 19.3 % 12/07/24 14:42 Tucker % (Auto) 7.8 % 12/07/24 14:42 Eos % (Auto) 2.4 % 12/07/24 14:42 Baso % (Auto) 0.7 % 12/07/24 14:42 Neut # (Auto) 6.50 10^3/uL (1.8-7.7) 12/07/24 14:42 Lymph # (Auto) 1.8 10^3/uL (0.8-4.8) 12/07/24 14:42 Tucker # (Auto) 0.7 10^3/uL (0.2-0.9) 12/07/24 14:42 Eos # (Auto) 0.2 10^3/uL (0.0-0.8) 12/07/24 14:42 Baso # (Auto) 0.1 10^3/uL (0.0-0.1) 12/07/24 14:42 Nucleated RBC % (auto) 0 % 12/07/24 14:42 Nucleated RBCs # 0.0 /100WBC 12/07/24 14:42 Sodium 136 mmol/L (136-145) 12/07/24 14:42 Potassium 4.1 mmol/L (3.5-5.1) 12/07/24 14:42 Chloride 100 mmol/L (98-107) 12/07/24 14:42 Carbon Dioxide 26 mmol/L (22-29) 12/07/24 14:42 Anion Gap 14.1 (5-19) 12/07/24 14:42 BUN 9 mg/dL (6-20) 12/07/24 14:42 Creatinine 0.7 mg/dL (0.7-1.2) 12/07/24 14:42 GFR Calculation 127.6 mL/min (90-130) 12/07/24 14:42 Glucose 93 mg/dL (65-115) 12/07/24 14:42 Calculated Osmolality 280 mOsm/kg (285-295) L 12/07/24 14:42 Calcium 9.1 mg/dL (8.5-10.5) 12/07/24 14:42 Total Bilirubin 0.4 mg/dL (0.15-1.2) 12/07/24 14:42 AST 21 U/L (0-40) 12/07/24 14:42 ALT 26 U/L (0-41) 12/07/24 14:42 Alkaline Phosphatase 127 U/L (40-130) 12/07/24 14:42 Total Protein 7.4 g/dL (6.6-8.7) 12/07/24 14:42 Albumin 4.4 g/dL (3.5-5.2) 12/07/24 14:42 Globulin 3.0 g/dL (1.3-4.6) 12/07/24 14:42 Lipase 18 U/L (13-60) 12/07/24 14:42 Urine Color Dark yellow (Yellow) A 12/07/24 15:20 Urine Appearance Clear (CLEAR) 12/07/24 15:20 Urine pH 5.5 (5-7) 12/07/24 15:20 Ur Specific [place] 1.041 (1.005-1.030) H 12/07/24 15:20 Urine Protein Trace (Negative) A 12/07/24 15:20 Urine Glucose (UA) Negative (Normal) 12/07/24 15:20 Urine Ketones 1+ (Negative) H 12/07/24 15:20 Urine Blood Negative (Negative) 12/07/24 15:20 Urine Nitrate Negative (Negative) 12/07/24 15:20 Urine Bilirubin 1+ (Negative) H 12/07/24 15:20 Urine Urobilinogen 1.0 mg/dL (Negative) 12/07/24 15:20 Ur Leukocyte Esterase Negative (Negative) 12/07/24 15:20 Urine RBC 0-2 /hpf (0-2) 12/07/24 15:20 Urine WBC 0-5 /hpf (0-5) 12/07/24 15:20 Ur Squamous Epith Cells 0-5 /hpf (0-5) 12/07/24 15:20 Amorphous Sediment Not Reportable 12/07/24 15:20 Urine Bacteria None seen /hpf (NONE) 12/07/24 15:20 Hyaline Casts 3.30 /lpf 12/07/24 15:20 Coronavirus (PCR) Negative (Negative) 12/07/24 15:02 Influenza A (PCR) Negative (Negative) 12/07/24 15:02 Influenza Type B (PCR) Negative (Negative) 12/07/24 15:02 RSV (PCR) Negative (Negative) 12/07/24 15:02 All radiology interpretation(s) finalized by discharge Discharge Plan Discharge Patient Disposition: Home Clinical Impression: Abdominal pain Condition: Stable Prescriptions: New hydrocodone-acetaminophen 5-325 mg tablet 1 tab PO Q6H PRN (Reason: pain) Qty: 14 0RF ondansetron HCl 4 mg tablet 4 mg PO Q8H PRN (Reason: nausea and vomiting) Qty: 14 0RF No Action acetaminophen [Tylenol Extra Strength] 500 mg Tablet 1,000 mg PO Q6H PRN (Reason: Pain) tramadol 50 mg tablet 50 - 100 mg PO Q6H gabapentin 300 mg capsule 300 mg PO TID ibuprofen 600 mg tablet 600 mg PO BID Discharge Orders: Discharge ED (Routine); Ordered 12/07/24 Ordered By: Isai Schwartz Patient Instructions: Abdominal Pain (ED), Opioid Safety, Pain Management Activity Restrictions/Additional Instructions: Please call Dr. Galvez office first thing tomorrow morning during business hours and arrange close follow-up for your condition. He had been prescribed pain medicine and nausea medicine. Please pick them up at your pharmacy and take them as directed. If your pain worsens or becomes uncontrollable please feel free to return to the ER. Print Language: Prydeinig Coding Level of Care Code ED [employer] Counselor for Chente Yeager
--- NOTE | 2024-12-07 14:07 | CT_ITS ---
WS: [id number] CT ABDOMEN AND PELVIS WITH CONTRAST HISTORY: Abdominal pain TECHNIQUE: Imaging performed of the abdomen and pelvis with IV contrast. Single phase imaging of the abdomen. Coronal and sagittal reformats are submitted. All CT scans at [facility] use at least one of these dose optimization techniques: automated exposure control; mA and/or kV adjustment per patient size (includes targeted exams where dose is matched to clinical indication); or iterative reconstruction. IV CONTRAST: Omnipaque 350; 100 mL IV. Oral contrast: No DLP: 1174.53 mGy.cm COMPARISON: 09/22/2024 Lower thorax: Lung bases are clear. Heart is normal size. No hiatal hernia. Liver/biliary system: Normal size with no intrahepatic dilatation. Gallbladder: Mild soft tissue stranding in the gallbladder fossa with mild enhancement of the gallbladder wall. Gallbladder is slightly larger in size than on the prior exam. Normal common bile duct. Pancreas: Normal size pancreas and pancreatic duct. No adjacent inflammation. Spleen: Normal size spleen. No mass or infarct. Adrenal glands: Normal. Right kidney: Normal. Left kidney: Normal. Aorta: Normal. Lymphadenopathy: None. Free fluid: None. GI tract: Nondistended stomach. No small bowel obstruction. Prior appendectomy. No colitis or obstruction. Rectosigmoid anastomosis is intact. Focus of air along the LEFT lateral rectosigmoid anastomotic site. New since 09/22/2024. Patient has undergone reversal of a previously noted colostomy for partial colectomy. Postsurgical changes along the anterior abdominal wall. Abdominal wall: Postsurgical changes. Mild soft tissue infiltration at the site of the colostomy reversal. Pelvis: No free fluid or adenopathy within the pelvis. Bones: Degenerative disc disease at L5-S1. CT/CT abdomen pelvis w con* [id number] IMPRESSION: 1. Mild inflammation at the gallbladder fossa with mild gallbladder wall enhan cement. Suggest evaluation by ultrasound for acute cholecystitis. No hepatobili david dilatation. 2. Patient has undergone reversal of the LEFT colostomy since 09/22/2024. 3. Surgical anastomotic site deep within the pelvis is identified. There is ti ny focus of air to the LEFT of the surgical anastomosis which appears to be ext ernal to the lumen. Potentially this could be a small perforation or even a sma ll diverticulum. Recommend evaluation for possible dehiscence/perforation along the surgical anastomotic site. No abscess or free fluid at this time.
[2024-12-07 14:48] LABS: Basophils # 0.1 10^3/uL (0.0-0.1); Basophils % 0.7 %; Eosinophils # 0.2 10^3/uL (0.0-0.8); Eosinophils % 2.4 %; Hematocrit 46.4 % (37-53); Lymphocytes # 1.8 10^3/uL (0.8-4.8); Lymphocytes % 19.3 %; Mean Corpuscular HGB Conc 33.8 g/dL (30-55); Mean Corpuscular Hemoglobin 32.4 pg (27-33); Mean Corpuscular Volume 95.7 fl (82-101); Mean Platelet Volume 10.2 fL (7.4-10.4); Monocytes # 0.7 10^3/uL (0.2-0.9); Monocytes % 7.8 %; Neutrophils % 69.2 %; Nucleated Red Blood Cells % 0 %; Platelet Count 186 10^3/cmm (157-399); Red Blood Count 4.85 10^6/uL (3.85-5.65); Red Cell Distribution Width 12.4 % (12.1-15.1); White Blood Count 9.41 10^3/uL (3.29-11.43)
[2024-12-07 15:01] VITALS: RESP 18; O2SAT 100
[2024-12-07] MEDS: HYDROmorphone 1 mg/mL INJ 1 mL IVP ×2 (15:01→18:30)
[2024-12-07] MEDS: ondansetron 2 mg/ML SDV 2 mL 4 MG IVP ×2 (15:01→18:30)
[2024-12-07 15:07] LABS: Alanine Aminotransferase 26 U/L (0-41); Albumin Level 4.4 g/dL (3.5-5.2); Alkaline Phosphatase 127 U/L (40-130); Anion Gap 14.1 (5-19); Aspartate Amino Transferase 21 U/L (0-40); Blood Urea Nitrogen 9 mg/dL (6-20); Calcium 9.1 mg/dL (8.5-10.5); Carbon Dioxide 26 mmol/L (22-29); Chloride 100 mmol/L (98-107); Creatinine Clr Calc Pharmacy 206.2254; Glomerular Filtration Rate 127.6 mL/min (90-130); Glucose 93 mg/dL (65-115); Lipase 18 U/L (13-60); Osmolality Calculated 280 mOsm/kg (285-295); Potassium 4.1 mmol/L (3.5-5.1); Sodium 136 mmol/L (136-145); Total Bilirubin 0.4 mg/dL (0.15-1.2); Total Protein 7.4 g/dL (6.6-8.7)
[2024-12-07] MEDS: iohexol 350 mg/mL 500 mL Btl (per mL) IV (15:12)
[2024-12-07 15:13] VITALS: BP 140/81; PULSE 103; O2SAT 100
[2024-12-07 15:38] LABS: Bilirubin Urine 1+ (Negative); Blood Urine Negative (Negative); Glucose Urine UA Negative (Normal); Ketones Urine 1+ (Negative); Leukocyte Esterase Urine Negative (Negative); Nitrate Urine Negative (Negative); Protein Urine Trace (Negative); Urine Appearance Clear (CLEAR); Urine Color Dark Yellow (Yellow); pH Urine 5.5 (5-7)
[2024-12-07 15:43] LABS: Covid PCR NEGATIVE (Negative); Influenza A NEGATIVE (Negative); Influenza B NEGATIVE (Negative); Respiratory Syncytial Virus Ce NEGATIVE (Negative)
[2024-12-07 15:43] LABS: Add Urine Microscopic? YES; Bacteria Urine None Seen /hpf; RBC Urine 0-2 /hpf (0-2); Squamous Epithelial Cell Urine 0-5 /hpf (0-5); WBC Urine 0-5 /hpf (0-5)
[2024-12-07 15:48] LABS: Add Urine Culture? No; Specific Gravity, Urine 1.041 (1.005-1.030)
[2024-12-07 17:23] VITALS: BP 126/76; PULSE 76; O2SAT 98
[2024-12-07 18:30] VITALS: RESP 18
[2024-12-07 19:37] VITALS: BP 127/75; PULSE 84; O2SAT 95
== END 2024-12-07 19:39 | disposition home or self-care (01) ==
PROVIDERS: Emergency Medicine; Emergency Provider Emergency Medicine
DX: R10.9 Unspecified abdominal pain (principal); Z11.52 Encounter for screening for COVID-19; Z87.891 Personal history of nicotine dependence
CPT/HCPCS: 36415; 74177; 80053; 81001; 83690; 85025; 87637; 96374; 96375; 99285; J1171; J2405

== ENCOUNTER 2024-12-24 10:44 | Emergency (ER) | payer MEDICAID, SELFPAY ==
[2024-12-24 10:50] VITALS: BP 132/79; PULSE 100; RESP 16; TEMP 37; O2SAT 98; BMI 36.9
--- NOTE | 2024-12-24 11:00 | CTR_ITS ---
PROCEDURE INFORMATION: Exam: CT Abdomen And Pelvis With Contrast Exam date and time: 12/24/2024 11:41 AM Age: 34 years old Clinical indication: Abdominal pain; Generalized; Prior surgery; Surgery date: 1-6 months; Surgery type: Colon; Additional info: Abdominal pain, status post colostomy takedown TECHNIQUE: Imaging protocol: Computed tomography of the abdomen and pelvis with contrast. Radiation optimization: All CT scans at this facility use at least one of these dose optimization techniques: automated exposure control; mA and/or kV adjustment per patient size (includes targeted exams where dose is matched to clinical indication); or iterative reconstruction. Contrast material: OMNI 350; Contrast volume: 100 ml; Contrast route: INTRAVENOUS (IV); COMPARISON: CT abdomen pelvis w con* [id number] 12/07/2024 3:08 PM RADIATION DOSE METRICS: Total DLP (mGy-cm): 1226.22 FINDINGS: Liver: Normal. No mass. Gallbladder and biliary ducts: Normal. No calcified stones. No ductal dilation. Pancreas: Normal. No ductal dilation. Spleen: Normal. No splenomegaly. Adrenal glands: Normal. No mass. Kidneys and ureters: Normal. No hydronephrosis. Stomach and bowel: Distal sigmoid/rectal anastomosis appears intact. No mechanical bowel obstruction. Appendix: No evidence of appendicitis. Intraperitoneal space: Unremarkable. No free air. No significant fluid collection. Vasculature: Unremarkable. No abdominal aortic aneurysm. Lymph nodes: Unremarkable. No enlarged lymph nodes. Urinary bladder: Unremarkable as visualized. Reproductive: Unremarkable as visualized. Bones/joints: Unremarkable. No acute fracture. Soft tissues: Soft tissue stranding along the anterior right upper quadrant likely representing fat necrosis. Expected postsurgical changes along the midline CT/CT abdomen pelvis w con* [id number] IMPRESSION: Status post colostomy takedown without any evidence of mechanical bowel obstruction, distal bowel anastomosis appears intact.
--- NOTE | 2024-12-24 11:18 | W.ED.ABDPA2 ---
HPI - Abdominal Pain General: Chief Complaint: Abdominal Pain Stated Complaint: abd pain Time Seen by Provider: 12/24/24 10:57 History of Present Illness: 34-year-old man with a history of diverticulitis status post perforation in the past with ostomy placement and then takedown a month or so ago. He presents to the emergency room again today with abdominal pain and nausea. Pain is worsened. He had done what his surgeon told him Related Data Home Medications ?Medication ?Instructions ?Recorded ?Confirmed acetaminophen 500 mg tablet 1,000 mg PO Q6H PRN Pain 01/10/21 12/07/24 (Tylenol Extra Strength) gabapentin 300 mg capsule 300 mg PO TID 12/07/24 12/07/24 ibuprofen 600 mg tablet 600 mg PO BID 12/07/24 12/07/24 tramadol 50 mg tablet 50 - 100 mg PO Q6H 12/07/24 12/07/24 Previous Rx's ?Medication ?Instructions ?Recorded hydrocodone 5 mg-acetaminophen 325 1 tab PO Q6H PRN pain #14 tabs 12/07/24 mg tablet ondansetron HCl 4 mg tablet 4 mg PO Q8H PRN nausea and 12/07/24 vomiting #14 tabs diclofenac sodium 50 mg 50 mg PO BID PRN pain #14 tabs 12/24/24 tablet,delayed release ondansetron 8 mg disintegrating 8 mg PO Q6H #14 tabs 12/24/24 tablet Allergies Allergy/AdvReac Type Severity Reaction Status Date / Time lisinopril Allergy ALGY-Anaphy Verified 12/07/24 13:58 laxis beans Allergy ALGY-Anaphy Uncoded 09/22/24 13:06 laxis [facility] PFSH: Medical History (Updated 12/24/24 @ 12:38 by Kika Rajan MD) History of MRSA infection Sepsis Macrocytic anemia Staphylococcal infection of skin Morbid obesity with BMI of 45.0-49.9, adult Bacteremia Tooth infection Asthma Diverticulitis of colon with perforation Peritonitis, acute generalized Surgical History (Updated 09/15/24 @ 09:57 by Dhruv Coughlin DO) History of tonsillectomy History of colostomy 2020 History of appendectomy Family History Father Cancer Lung cancer, smoker in his late 40s Mother No problems noted. Social History Smoking and tobacco/nicotine status: former use of tobacco/nicotine Alcohol intake: current Alcohol intake frequency: few times a month Substance/Drug Use: never Physical Exam Narrative: EXAM NARRATIVE: General: Alert, no acute distress. Skin: Warm, dry. Head: Normocephalic, atraumatic. Neck: Supple, trachea midline. Eye: Extraocular movements are intact. Ears, nose, mouth and throat: mucosa moist. Cardiovascular: Regular, Normal peripheral perfusion. Respiratory: Lungs are clear to auscultation, respirations are non-labored, breath sounds are equal, Symmetrical chest wall expansion. Gastrointestinal: Soft, Nontender, Non distended Musculoskeletal: Normal ROM, no deformity. Neurological: Alert and oriented, No focal neurological deficit observed. Psychiatric: Cooperative, appropriate mood & affect. Course Vital Signs: Vital signs: Vital Signs Temperature 98.6 F 12/24/24 10:50 Pulse Rate 85 12/24/24 11:29 Respiratory Rate 16 12/24/24 10:50 Blood Pressure 139/83 12/24/24 11:29 Pulse Oximetry 98 12/24/24 11:29 Oxygen Delivery Me thod Room Air 12/24/24 11:29 MDM - Abdominal Pain Medical Decision Making Medical decision making: Differential diagnosis including but not limited to and based on the above HPI, review of systems and physical exam: In this patient would have concerns for anastomotic leak or obstruction. Recurrent diverticulitis etc. Orders placed to evaluate differential diagnosis based on the above differential, HPI and physical exam Lab Review: Laboratory results were reviewed and interpreted by myself the emergency room physician. Lab work is completely unremarkable. No leukocytosis. No anemia. No renal failure. CRP is mildly elevated. CT of the abdomen pelvis with contrast: Status post colostomy takedown with no evidence of any bowel obstruction or anastomosis issues. This was reviewed and interpreted by myself the emergency room physician. I also reviewed the radiology report. I reviewed the patient's medical record. Reexamination: Patient remained stable. No increased work of breathing. No altered mental status. No focal motor deficits. Assessment and plan: Abdominal pain ?No clear source for the patient's abdominal pain. Normal CT. Normal lab work. - Discharged home - Discussed plan with patient. Answered any questions. - Evaluation and treatment of this problem were appropriate in the emergency setting. Lab Data 12/24/24 11:31 12/24/24 11:31 Labs/Radiology: Radiology Impressions Abdomen/Pelvis CT 12/24/24 11:00 IMPRESSION: Status post colostomy takedown without any evidence of mechanical bowel obstruction, distal bowel anastomosis appears intact. Laboratory Results WBC 7.42 10^3/uL (3.29-11.43) 12/24/24 11:31 RBC 5.06 10^6/uL (3.85-5.65) 12/24/24 11:31 Hgb 16.20 g/dL (11.27-16.99) 12/24/24 11:31 Hct 48.3 % (37-53) 12/24/24 11:31 MCV 95.5 fl (82-101) 12/24/24 11:31 MCH 32.0 pg (27-33) 12/24/24 11:31 MCHC 33.5 g/dL (30-55) 12/24/24 11:31 RDW 11.9 % (12.1-15.1) L 12/24/24 11:31 Plt Count 181 10^3/cmm (157-399) 12/24/24 11:31 MPV 10.2 fL (7.4-10.4) 12/24/24 11:31 Neut % (Auto) 66.0 % 12/24/24 11:31 Lymph % (Auto) 24.1 % 12/24/24 11:31 Power % (Auto) 6.2 % 12/24/24 11:31 Eos % (Auto) 2.4 % 12/24/24 11:31 Baso % (Auto) 0.9 % 12/24/24 11:31 Neut # (Auto) 4.89 10^3/uL (1.8-7.7) 12/24/24 11:31 Lymph # (Auto) 1.8 10^3/uL (0.8-4.8) 12/24/24 11:31 Power # (Auto) 0.5 10^3/uL (0.2-0.9) 12/24/24 11:31 Eos # (Auto) 0.2 10^3/uL (0.0-0.8) 12/24/24 11:31 Baso # (Auto) 0.1 10^3/uL (0.0-0.1) 12/24/24 11:31 Nucleated RBC % (auto) 0 % 12/24/24 11:31 Nucleated RBCs # 0.0 /100WBC 12/24/24 11:31 Sodium 136 mmol/L (136-145) 12/24/24 11:31 Potassium 4.3 mmol/L (3.5-5.1) 12/24/24 11:31 Chloride 99 mmol/L (98-107) 12/24/24 11:31 Carbon Dioxide 26 mmol/L (22-29) 12/24/24 11:31 Anion Gap 15.3 (5-19) 12/24/24 11:31 BUN 10 mg/dL (6-20) 12/24/24 11:31 Creatinine 0.7 mg/dL (0.7-1.2) 12/24/24 11:31 GFR Calculation 127.6 mL/min (90-130) 12/24/24 11:31 Glucose 109 mg/dL (65-115) 12/24/24 11:31 Calculated Osmolality 282 mOsm/kg (285-295) L 12/24/24 11:31 Lactic Acid 1.3 mmol/L (0.5-2.2) 12/24/24 11:31 Calcium 9.8 mg/dL (8.5-10.5) 12/24/24 11:31 Total Bilirubin 0.4 mg/dL (0.15-1.2) 12/24/24 11:31 AST 19 U/L (0-40) 12/24/24 11:31 ALT 20 U/L (0-41) 12/24/24 11:31 Alkaline Phosphatase 122 U/L (40-130) 12/24/24 11:31 C-Reactive Protein 6.0 mg/L (0.0-4.9) H 12/24/24 11:31 Total Protein 8.0 g/dL (6.6-8.7) 12/24/24 11:31 Albumin 4.4 g/dL (3.5-5.2) 12/24/24 11:31 Globulin 3.6 g/dL (1.3-4.6) 12/24/24 11:31 Lipase 21 U/L (13-60) 12/24/24 11:31 All radiology interpretation(s) finalized by discharge Discharge Plan Discharge Patient Disposition: Home Clinical Impression: Abdominal pain Condition: Stable Prescriptions: New ondansetron 8 mg tablet,disintegrating 8 mg PO Q6H Qty: 14 0RF Rx Instructions: Take 1/2-1 tab every 6 hours as needed for nausea and vomiting diclofenac sodium 50 mg tablet,delayed release (DR/EC) 50 mg PO BID PRN (Reason: pain) Qty: 14 0RF No Action acetaminophen [Tylenol Extra Strength] 500 mg Tablet 1,000 mg PO Q6H PRN (Reason: Pain) tramadol 50 mg tablet 50 - 100 mg PO Q6H gabapentin 300 mg capsule 300 mg PO TID ibuprofen 600 mg tablet 600 mg PO BID hydrocodone-acetaminophen 5-325 mg tablet 1 tab PO Q6H PRN (Reason: pain) Qty: 14 0RF ondansetron HCl 4 mg tablet 4 mg PO Q8H PRN (Reason: nausea and vomiting) Qty: 14 0RF Discharge Orders: Discharge ED (Routine); Ordered 12/24/24 Ordered By: Kika Rajan Discharge Diet: Advance as tolerated Discharge Activity: Increase activity as tolerated Patient Instructions: Abdominal Pain (ED), Opioid Safety, Pain Management Activity Restrictions/Additional Instructions: Thank you for choosing [facility] for your healthcare needs today. Please realize this is an emergency room and that we are providing you with a medical screening exam and this may not be complete and all inclusive of all the testing and or work up that you may need to determine your ailment or severity of your illness. You have been screened and evaluated and felt safe for discharge. Health conditions do change or evolve sometimes and as such it is important that you follow up with your Primary Doctor to be re checked, 3-5 days is a general good time frame for follow up. You are always welcome to return to the ED for re assessment if your symptoms are worsening or you have new concerns Print Language: Indian Coding Level of Care Code ED [employer] for Chente Yeager
[2024-12-24 11:29] VITALS: BP 139/83; PULSE 85; O2SAT 98
[2024-12-24] MEDS: ketorolac 30 mg/mL INJ IVP (11:30)
[2024-12-24] MEDS: ondansetron 2 mg/ML SDV 2 mL 8 MG IVP (11:30)
[2024-12-24 11:39] LABS: Basophils # 0.1 10^3/uL (0.0-0.1); Basophils % 0.9 %; Eosinophils # 0.2 10^3/uL (0.0-0.8); Eosinophils % 2.4 %; Hematocrit 48.3 % (37-53); Lymphocytes # 1.8 10^3/uL (0.8-4.8); Lymphocytes % 24.1 %; Mean Corpuscular HGB Conc 33.5 g/dL (30-55); Mean Corpuscular Volume 95.5 fl (82-101); Mean Platelet Volume 10.2 fL (7.4-10.4); Monocytes # 0.5 10^3/uL (0.2-0.9); Monocytes % 6.2 %; Neutrophils # 4.89 10^3/uL (1.8-7.7); Nucleated Red Blood Cells % 0 %; Platelet Count 181 10^3/cmm (157-399); Red Blood Count 5.06 10^6/uL (3.85-5.65); Red Cell Distribution Width 11.9 % (12.1-15.1); White Blood Count 7.42 10^3/uL (3.29-11.43)
[2024-12-24] MEDS: iohexol 350 mg/mL 500 mL Btl (per mL) IV (11:44)
[2024-12-24 12:01] LABS: Alanine Aminotransferase 20 U/L (0-41); Albumin Level 4.4 g/dL (3.5-5.2); Alkaline Phosphatase 122 U/L (40-130); Anion Gap 15.3 (5-19); Aspartate Amino Transferase 19 U/L (0-40); Blood Urea Nitrogen 10 mg/dL (6-20); Calcium 9.8 mg/dL (8.5-10.5); Carbon Dioxide 26 mmol/L (22-29); Chloride 99 mmol/L (98-107); Creatinine Clr Calc Pharmacy 203.7542; Globulin 3.6 g/dL (1.3-4.6); Glomerular Filtration Rate 127.6 mL/min (90-130); Glucose 109 mg/dL (65-115); Lipase 21 U/L (13-60); Osmolality Calculated 282 mOsm/kg (285-295); Potassium 4.3 mmol/L (3.5-5.1); Sodium 136 mmol/L (136-145); Total Bilirubin 0.4 mg/dL (0.15-1.2)
[2024-12-24 12:02] LABS: Lactic Sepsis W/Reflex 1.3 mmol/L (0.5-2.2)
[2024-12-24 12:48] VITALS: BP 150/80; PULSE 80; O2SAT 99
== END 2024-12-24 12:54 | disposition home or self-care (01) ==
PROVIDERS: Emergency Provider Emergency Medicine
DX: R10.9 Unspecified abdominal pain (principal); Z87.891 Personal history of nicotine dependence
CPT/HCPCS: 74177; 80053; 83605; 83690; 85025; 86140; 96374; 96375; 99285; J1885; J2405

== ENCOUNTER 2025-02-08 11:33 | Emergency (ER) | payer MEDICAID, SELFPAY ==
[2025-02-08 11:53] VITALS: BP 158/90; PULSE 75; RESP 17; TEMP 37; O2SAT 98; BMI 37.8
[2025-02-08 12:15] LABS: Basophils # 0.1 10^3/uL (0.0-0.1); Basophils % 0.9 %; Eosinophils # 0.3 10^3/uL (0.0-0.8); Eosinophils % 3.9 %; Hematocrit 49.2 % (37-53); Lymphocytes # 2.1 10^3/uL (0.8-4.8); Lymphocytes % 27.2 %; Mean Corpuscular HGB Conc 33.3 g/dL (30-55); Mean Corpuscular Hemoglobin 31.5 pg (27-33); Mean Corpuscular Volume 94.4 fl (82-101); Mean Platelet Volume 10.1 fL (7.4-10.4); Monocytes # 0.4 10^3/uL (0.2-0.9); Monocytes % 5.6 %; Neutrophils # 4.74 10^3/uL (1.8-7.7); Neutrophils % 62.1 %; Nucleated Red Blood Cells % 0 %; Platelet Count 196 10^3/cmm (157-399); Red Blood Count 5.21 10^6/uL (3.85-5.65); Red Cell Distribution Width 12.2 % (12.1-15.1); White Blood Count 7.64 10^3/uL (3.29-11.43)
[2025-02-08 12:30] LABS: Alanine Aminotransferase 28 U/L (0-41); Albumin Level 4.4 g/dL (3.5-5.2); Alkaline Phosphatase 129 U/L (40-130); Anion Gap 15.4 (5-19); Aspartate Amino Transferase 24 U/L (0-40); Blood Urea Nitrogen 8 mg/dL (6-20); Calcium 9.4 mg/dL (8.5-10.5); Carbon Dioxide 26 mmol/L (22-29); Chloride 99 mmol/L (98-107); Creatinine Clr Calc Pharmacy 206.2997; Globulin 3.2 g/dL (1.3-4.6); Glomerular Filtration Rate 127.6 mL/min (90-130); Glucose 115 mg/dL (65-115); Lipase 45 U/L (13-60); Osmolality Calculated 281 mOsm/kg (285-295); Potassium 4.4 mmol/L (3.5-5.1); Sodium 136 mmol/L (136-145); Total Bilirubin 0.3 mg/dL (0.15-1.2); Total Protein 7.6 g/dL (6.6-8.7)
--- NOTE | 2025-02-08 12:41 | CT_ITS ---
WS: [id number] CT ABDOMEN PELVIS TECHNIQUE: Contrast-enhanced CT of the abdomen and pelvis with coronal and sagittal reformatted images. CLINICAL INFORMATION: abd pain COMPARISON: CT 12/24/2024 and 12/07/2024 DLP: 1362.[address] scans at [facility] use at least one of these dose optimization techniques: automated exposure control; mA and/or kV adjustment per patient size (includes targeted exams where dose is matched to clinical indication); or iterative reconstruction. FINDINGS: Prior colostomy takedown. No evidence of bowel obstruction. Stable induration in the soft tissue RIGHT upper quadrant likely fat necrosis. Postoperative changes along the midline abdomen are similar in appearance. Lung bases are well aerated. Normal pancreatic parenchymal enhancement. Celiac and SMA are patent. Adrenal glands are normal. Normal renal parenchymal enhancement. No hydronephrosis. Tiny esophageal hernia. CT/CT abdomen pelvis w con* [id number] IMPRESSION: 1. No acute findings in the abdomen or pelvis. 2. Stable prior colostomy takedown. No evidence of obstruction. 3. Stable induration RIGHT upper quadrant likely fat necrosis unchanged.
--- NOTE | 2025-02-08 12:42 | ED_ITS ---
HPI - Abdominal Pain 2 General: Chief Complaint: Abdominal Pain Stated Complaint: abd pain Time Seen by Provider: 02/08/25 12:34 Source: patient Mode of arrival: ambulatory Limitations: no limitations History of Present Illness: 34-year-old male states he has been havi ng abdominal pain since yesterday. He had a history of an ostomy had ostomy reversed in November. States he had been better moving some furniture but did have pain after but states he been having increasing pain today pains an 8 out of 10 worse with movement denies any vomiting or diarrhea. Associated Symptoms: Denies chills, diarrhea, fever(s), nausea and vomiting Related Data Home Medications ?Medication ?Instructions ?Recorded ?Confirmed acetaminophen 500 mg tablet 1,000 mg PO Q6H PRN Pain 0 01/10/21 02/08/25 (Tylenol Extra Strength) ibuprofen 600 mg tablet 600 mg PO BID 12/07/2402/08 tramadol 50 mg tablet 50 - 100 mg PO Q6H 12/07/24 02/08/25 Allergies Allergy/AdvReac Type Severity Reaction Status Date / Time lisinopril Allergy ALGY-Anaphy Verified 02/08/25 11:57 laxis beans Allergy ALGY-Anaphy Uncoded 09/22/24 13:06 laxis Review of Systems 2 Const: Denies: fever(s), chills, body aches or change in appetite ENMT: Denies: throat pain or dental pain Card: Denies: chest pain Resp: Denies: dyspnea GI: Reports: abdominal pain; Denies: nausea, vomiting or diarrhea Musc: Denies: neck pain or back pain Skin/Breast: Denies: rash Neuro: Denies: headache(s) PFSH ED 2 PFSH: Medical History History of MRSA infection Sepsis Macrocytic anemia Staphylococcal infection of skin Morbid obesity with BMI of 45.0-49.9, adult Bacteremia Tooth infection Asthma Diverticulitis of colon with perforation Peritonitis, acute generalized Surgical History History of tonsillectomy History of colostomy 2020 History of appendectomy Family History Father Cancer Lung cancer, smoker in his late 40s Mother No problems noted. Social History Smoking and tobacco/nicotine status: former use of tobacco/nicotine Alcohol intake: current Alcohol intake frequency: few times a month Substance/Drug Use: never Physical Exam 2 Const: COMMON NORMALS: no acute distress, patient oriented x3 and healthy appearing HENMT: COMMON NORMALS: normocephalic and atraumatic HEAD & SCALP: n ormocephalic and atraumatic Eye: COMMON NORMALS: conjunctivae normal CONJUNCTIVA: Yes conjunctivae normal Neck/C-Spine: COMMON NORMALS: full ROM and supple Chest: COMMONS NORMALS: normal inspection of the chest Resp: COMMON NORMALS: normal respiratory effort Cardio: COMMON NORMALS: regular rate, regular rhythm and No murmurs present (Cardio) RATE: regular rate RHYTHM: regular rhythm GI: COMMON NORMALS: Normal to inspection, nondistended, normoactive bowel sounds present, Soft to palpation and no masses PALPATION: Yes Soft to palpation OTHER: llq tenderness Extremity: COMMON NORMALS: normal to inspection and full ROM Neuro: COMMON NORMALS: patient oriented x3, moves all extremities and no focal motor deficits Psych: COMMON NORMALS: mental status grossly normal, Normal thought process present and cooperative THOUGHT PROCESS: Normal thought process present Skin: COMMON NORMALS: no rashes or lesions noted and no wounds GENERAL SKIN EXAM: no rashes or lesions noted Course 2 Vital Signs: Vital signs: Vital Signs Temperature 98.6 F 02/08/25 11:53 Pulse Rate 87 02/08/25 12:57 Respiratory Rate 20 H 02/08/25 13:00 Blood Pressure 116/86 02/08/25 12:57 Pulse Oximetry 98 02/08/25 13:00 Oxygen Delivery Me thod Room Air 02/08/25 11:53 MDM - Abdominal Pain Medical Decision Making Patient presents with abdominal pain CT blood work is normal he stable for discharge follow-up PCP return if worsening. Medical Records I reviewed the patient's medical records. Lab Data I reviewed the patient's lab results. 02/08/25 12:06 02/08/25 12:06 Labs/Radiology: Radiology Impressions Abdomen/Pelvis CT 02/08/25 12:41 IMPRESSION: 1. No acute findings in the abdomen or pelvis. 2. Stable prior colostomy takedown. No evidence of obstruction. 3. Stable induration RIGHT upper quadrant likely fat necrosis unchanged. Laboratory Results WBC 7.64 10^3/uL (3.29-11.43) 02/08/25 12:06 RBC 5.21 10^6/uL (3.85-5.65) 02/08/25 12:06 Hgb 16.40 g/dL (11.27-16.99) 02/08/25 12:06 Hct 49.2 % (37-53) 02/08/25 12:06 MCV 94.4 fl (82-101) 02/08/25 12:06 MCH 31.5 pg (27-33) 02/08/25 12:06 MCHC 33.3 g/dL (30-55) 02/08/25 12:06 RDW 12.2 % (12.1-15.1) 02/08/25 12:06 Plt Count 196 10^3/cmm (157-399) 02/08/25 12:06 MPV 10.1 fL (7.4-10.4) 02/08/25 12:06 Neut % (Auto) 62.1 % 02/08/25 12:06 Lymph % (Auto) 27.2 % 02/08/25 12:06 [place] % (Auto) 5.6 % 02/08/25 12:06 Eos % (Auto) 3.9 % 02/08/25 12:06 Baso % (Auto) 0.9 % 02/08/25 12:06 Neut # (Auto) 4.74 10^3/uL (1.8-7.7) 02/08/25 12:06 Lymph # (Auto) 2.1 10^3/uL (0.8-4.8) 02/08/25 12:06 [place] # (Auto) 0.4 10^3/uL (0.2-0.9) 02/08/25 12:06 Eos # (Auto) 0.3 10^3/uL (0.0-0.8) 02/08/25 12:06 Baso # (Auto) 0.1 10^3/uL (0.0-0.1) 02/08/25 12:06 Nucleated RBC % (auto) 0 % 02/08/25 12:06 Nucleated RBCs # 0.0 /100WBC 02/08/25 12:06 Sodium 136 mmol/L (136-145) 02/08/25 12:06 Potassium 4.4 mmol/L (3.5-5.1) 02/08/25 12:06 Chloride 99 mmol/L (98-107) 02/08/25 12:06 Carbon Dioxide 26 mmol/L (22-29) 02/08/25 12:06 Anion Gap 15.4 (5-19) 02/08/25 12:06 BUN 8 mg/dL (6-20) 02/08/25 12:06 Creatinine 0.7 mg/dL (0.7-1.2) 02/08/25 12:06 GFR Calculation 127.6 mL/min (90-130) 02/08/25 12:06 Glucose 115 mg/dL (65-115) 02/08/25 12:06 Calculated Osmolality 281 mOsm/kg (285-295) L 02/08/25 12:06 Calcium 9.4 mg/dL (8.5-10.5) 02/08/25 12:06 Total Bilirubin 0.3 mg/dL (0.15-1.2) 02/08/25 12:06 AST 24 U/L (0-40) 02/08/25 12:06 ALT 28 U/L (0-41) 02/08/25 12:06 Alkaline Phosphatase 129 U/L (40-130) 02/08/25 12:06 Total Protein 7.6 g/dL (6.6-8.7) 02/08/25 12:06 Albumin 4.4 g/dL (3.5-5.2) 02/08/25 12:06 Globulin 3.2 g/dL (1.3-4.6) 02/08/25 12:06 Lipase 45 U/L (13-60) 02/08/25 12:06 All radiology interpretation(s) finalized by discharge Discharge Plan Discharge Patient Disposition: Home Clinical Impression: Abdominal pain Qualifiers: Abdominal location: unspecified location Qualified Code(s): R10.9 - Unspecified abdominal pain Condition: Stable Prescriptions: No Action acetaminophen [Tylenol Extra Strength] 500 mg Tablet 1,000 mg PO Q6H PRN (Reason: Pain) tramadol 50 mg tablet 50 - 100 mg PO Q6H ibuprofen 600 mg tablet 600 mg PO BID Discharge Orders: Discharge ED (Routine); Ordered 02/08/25 Ordered By: Keren Jeffers Referrals: Jd Heller MD [Primary Care Provider] - 4-7 days Discharge Diet: Advance as tolerated Discharge Activity: Resume usual activity Patient Instructions: Abdominal Pain (ED) Print Language: Malay Coding Level of Care Code ED [employer] for Chente Yeager
[2025-02-08 12:57] VITALS: BP 116/86; PULSE 87; O2SAT 97
[2025-02-08 13:00] VITALS: RESP 20; O2SAT 98
[2025-02-08] MEDS: ondansetron 2 mg/ML SDV 2 mL 4 MG IVP (13:00)
[2025-02-08] MEDS: morphine 4 mg/mL SDV 1 mL IVP (13:00)
[2025-02-08] MEDS: iohexol 350 mg/mL 500 mL Btl (per mL) IV (13:17)
[2025-02-08 14:07] VITALS: BP 145/101; PULSE 74; O2SAT 97
== END 2025-02-08 14:08 | disposition home or self-care (01) ==
PROVIDERS: Emergency Provider Emergency Medicine; PCP Internal Medicine
DX: R10.9 Unspecified abdominal pain (principal); Z87.891 Personal history of nicotine dependence
CPT/HCPCS: 36415; 74177; 80053; 83690; 85025; 96374; 96375; 99285; J2270; J2405

== ENCOUNTER 2025-03-06 10:53 | Emergency (ER) | payer MEDICAID, SELFPAY ==
[2025-03-06 10:58] VITALS: BP 147/89; PULSE 118; TEMP 37.3; O2SAT 98; BMI 37.7
[2025-03-06 11:52] LABS: Basophils # 0.1 10^3/uL (0.0-0.1); Basophils % 0.9 %; Eosinophils # 0.3 10^3/uL (0.0-0.8); Eosinophils % 3.6 %; Hematocrit 47.2 % (37-53); Lymphocytes # 2.3 10^3/uL (0.8-4.8); Lymphocytes % 27.1 %; Mean Corpuscular HGB Conc 33.5 g/dL (30-55); Mean Corpuscular Volume 95.7 fl (82-101); Monocytes # 0.7 10^3/uL (0.2-0.9); Monocytes % 8.2 %; Neutrophils # 5.05 10^3/uL (1.8-7.7); Neutrophils % 59.7 %; Nucleated Red Blood Cells % 0 %; Platelet Count 197 10^3/cmm (157-399); Red Blood Count 4.93 10^6/uL (3.85-5.65); Red Cell Distribution Width 12.6 % (12.1-15.1); White Blood Count 8.45 10^3/uL (3.29-11.43)
[2025-03-06 12:12] LABS: Alanine Aminotransferase 19 U/L (0-41); Albumin Level 4.1 g/dL (3.5-5.2); Alkaline Phosphatase 121 U/L (40-130); Anion Gap 12.3 (5-19); Aspartate Amino Transferase 14 U/L (0-40); Blood Urea Nitrogen 7 mg/dL (6-20); Calcium 9.1 mg/dL (8.5-10.5); Carbon Dioxide 29 mmol/L (22-29); Chloride 99 mmol/L (98-107); Creatinine Clr Calc Pharmacy 204.0193; Glomerular Filtration Rate 126.9 mL/min (90-130); Glucose 122 mg/dL (65-115); Osmolality Calculated 281 mOsm/kg (285-295); Potassium 4.3 mmol/L (3.5-5.1); Sodium 136 mmol/L (136-145); Total Bilirubin 0.2 mg/dL (0.15-1.2); Total Protein 7.1 g/dL (6.6-8.7)
[2025-03-06 13:12] LABS: Add Urine Microscopic? YES; Bilirubin Urine Neg (Negative); Blood Urine 3+ (Negative); Glucose Urine UA Norm (Normal); Ketones Urine Negative (Negative); Leukocyte Esterase Urine Negative (Negative); Nitrate Urine Negative (Negative); Protein Urine Neg (Negative); Specific Gravity, Urine 1.015 (1.005-1.030); Urine Appearance Clear (CLEAR); Urine Color Yellow (Yellow); Urobilinogen Urine Norm (Negative); pH Urine 6.5 (5-7)
[2025-03-06 13:13] LABS: Add Urine Culture? No
[2025-03-06 16:55] VITALS: BP 102/87; PULSE 89; RESP 16; O2SAT 100
--- NOTE | 2025-03-06 16:58 | CTR_ITS ---
PROCEDURE INFORMATION: Exam: CT Abdomen And Pelvis Without Contrast Exam date and time: 03/06/2025 5:50 PM Age: 35 years old Clinical indication: Abdominal pain; Generalized; Prior surgery; Surgery date: 6+ months; Surgery type: Ostomy, since reversed x3 yrs; Additional info: Hematuria TECHNIQUE: Imaging protocol: Computed tomography of the abdomen and pelvis without contrast. Radiation optimization: All CT scans at this facility use at least one of these dose optimization techniques: automated exposure control; mA and/or kV adjustment per patient size (includes targeted exams where dose is matched to clinical indication); or iterative reconstruction. COMPARISON: CT abdomen pelvis w con* [id number] 02/08/2025 1:[address] abdomen pelvis with contrast dated 12/24/2024, 12/07/2024, 09/22/2024. RADIATION DOSE METRICS: Total DLP (mGy-cm): 1194.43 FINDINGS: Liver: Liver appears heterogeneous with irregular border. Possible hepatic parenchymal disease. Gallbladder and biliary ducts: Edema, stranding identified in the anterior right abdomen with central fat density. This is adjacent to the lower left hepatic lobe and adjacent to the gallbladder. This appears similar since 02/08/2025 and has progressed since older imaging in December 2024. This finding is new since September 2024. Possible epiploic appendagitis however this is somewhat separate from the hepatic flexure of the colon. Findings concerning for potential mesenteric infarct with inflammation, edema. Pancreas: Unremarkable. Spleen: Unremarkable. No splenomegaly. Adrenal glands: Normal. No mass. Kidneys and ureters: Unremarkable. No hydronephrosis or calculi. Stomach and bowel: Partial distal colectomy with distal colorectal anastomosis. Anastomosis appears grossly unremarkable. The bowel appears otherwise unremarkable. No visualized evidence for bowel obstruction or ileus. Appendix: No evidence of appendicitis. Intraperitoneal space: See Gallbladder and biliary ducts finding. Vasculature: Calcifications in the pelvis, most compatible with phleboliths. Lymph nodes: No enlarged lymph nodes. Urinary bladder: Unremarkable as visualized. Reproductive: Unremarkable as visualized. Bones/joints: Moderate to severe bony degenerative changes involving the lumbar sacral junction. Disc and osteophyte complexes with mild to moderate central canal and foraminal narrowing within the lumbar sacral junction. Bony structures appear otherwise unremarkable. Soft tissues: Evidence for previous midline laparotomy surgery with postsurgical changes in the ventral wall. CT/CT kidney stone [id number] IMPRESSION: 1. Findings suggesting inflammation, edema with central fat density in the anterior right abdomen. Similar appearance since 02/08/2025. Progression since December 2024. New finding since September 2024. Possible epiploic appendagitis or omental infarct. 2. Nonspecific heterogeneous and irregular appearance of the liver. Recommend correlation with liver function tests.
--- NOTE | 2025-03-06 16:58 | ED_ITS ---
HPI - Male Genitourinary 2 General: Chief complaint: Urogenital-Male Stated complaint: back pain, blood in urine Time Seen by Provider: 03/06/25 16:55 History of Present Illness: 35-year-old male presents emergency room complaining of hematuria that began this morning. Patient denies no known history of nephrolithiasis he did have some dysuria this morning. No vomiting but he has been nauseous. He has had some loose stools no hematemesis. He does have some mild flank pain particularly on the right. He previously had a colostomy due to a perforated diverticuli he had a takedown of that and his GI tract is intact again. Associated symptoms: Reports dysuria, hematuria and nausea; Deny vomiting Related Data Home Medications ?Medication ?Instructions ?Recorded ?Confirmed acetaminophen 500 mg tablet 1,000 mg PO Q6H PRN Pain 0 01/10/21 02/08/25 (Tylenol Extra Strength) ibuprofen 600 mg tablet 600 mg PO BID 12/07/2402/08 tramadol 50 mg tablet 50 - 100 mg PO Q6H 12/07/24 02/08/25 Previous Rx's ?Medication ?Instructions ?Recorded hydrocodone 5 mg-acetaminophen 325 1 tab PO Q6H PRN pa in #14 tabs 02/08/25 mg tablet hydrocodone 5 mg-acetaminophen 325 1 tab PO Q6H PRN pa in #7 tabs 03/06/25 mg tablet promethazine 25 mg tablet 25 mg PO Q6H PRN nausea and 03/06/25 vomiting #10 tabs sulfamethoxazole 800 2 tab PO BID 7 days #28 tabs 03/06/25 mg-trimethoprim 160 mg tablet (Bactrim DS) Allergies Allergy/AdvReac Type Severity Reaction Status Date / Time lisinopril Allergy ALGY-Anaphy Verified 03/06/25 11:03 laxis beans Allergy ALGY-Anaphy Uncoded 03/06/25 11:03 laxis Review of Systems 2 Const: Denies: fever(s) or chills Card: Denies: chest pain Resp: Denies: dyspnea GI: Reports: abdominal pain and nausea; Denies: vomiting, hematemesis, coffee ground emesis or hematochezia : Reports: flank pain, difficulty urinating, dysuria and hematuria; Denies: urinary frequency or urinary urgency Musc: Denies: neck pain or back pain Skin/Breast: Denies: rash PFSH ED 2 PFSH: Medical History History of MRSA infection Sepsis Macrocytic anemia Staphylococcal infection of skin Morbid obesity with BMI of 45.0-49.9, adult Bacteremia Tooth infection Asthma Diverticulitis of colon with perforation Peritonitis, acute generalized Surgical History History of tonsillectomy History of colostomy 2020 History of appendectomy Family History Father Cancer Lung cancer, smoker in his late 40s Mother No problems noted. Social History Smoking and tobacco/nicotine status: former use of tobacco/nicotine Alcohol intake: current Alcohol intake frequency: few times a month Substance/Drug Use: never Physical Exam 2 Const: GENERAL APPEARANCE: cooperative ORIENTATION/CONSCIOUSNESS: Yes awake, Yes oriented to person, Yes oriented to place and Yes oriented to time HENMT: COMMON NORMALS: normocephalic, atraumatic and hearing grossly normal bilaterally HEAD & SCALP: normocephalic and atraumatic Resp: COMMON NORMALS: normal respiratory effort, No retractions, No use of accessory muscles and clear to auscultation bilaterally AUSCULTATION: clear to auscultation bilaterally Cardio: COMMON NORMALS: regular rate, regular rhythm and No murmurs present (Cardio) RATE: regular rate RHYTHM: regular rhythm GI: COMMON NORMALS: Soft to palpation and No hepatosplenomegaly present A USCULTATION: Yes normoactive bowel sounds PALPATION: Yes Soft to palpation, No Tenderness to palpation present (GI), No Guarding due to palpation present (GI) and Yes No hepatosplenomegaly present : BLADDER/KIDNEY EXAM: Yes CVA tenderness Back/Pelvis: GENERAL BACK: Yes CVA tenderness CVA tenderness: right Extremity: COMMON NORMALS: normal to inspection, capillary refill normal, no clubbing, cyanosis or edema, no calf tenderness and no pedal edema Neuro: SENSORIUM/ORIENTATION: Yes oriented to person, Yes oriented to place and Yes oriented to time Skin: COMMON NORMALS: no rashes or lesions noted GENERAL SKIN EXAM: no rashes or lesions noted Course 2 Vital Signs: Vital signs: Vital Signs Temperature 99.2 F 03/06/25 10:58 Pulse Rate 80 03/06/25 19:18 Respiratory Rate 16 03/06/25 19:18 Blood Pressure 146/93 03/06/25 19:18 Pulse Oximetry 97 03/06/25 19:18 Oxygen Delivery Me thod Room Air 03/06/25 18:00 MDM - Male Medical Decision Making Patient has gross hematuria this morning, however is no signs of infection he has microscopic hematuria at this time. CT did not show any acute pathology kidneys ureters or bladder. Will refer him to urology for further evaluation. Incidental finding of the cellulitis to the abdominal wall will start oral antibiotics. Recheck with primary care if not improving. Medical Records I reviewed the patient's medical records. Lab Data I reviewed the patient's lab results. 03/06/25 11:36 03/06/25 11:36 Radiology Impressions Abdomen/Pelvis CT 03/06/25 16:58 IMPRESSION: 1. Findings suggesting inflammation, edema with central fat density in the anterior right abdomen. Similar appearance since 02/08/2025. Progression since December 2024. New finding since September 2024. Possible epiploic appendagitis or omental infarct. 2. Nonspecific heterogeneous and irregular appearance of the liver. Recommend correlation with liver function tests. Laboratory Results WBC 8.45 10^3/uL (3.29-11.43) 03/06/25 11:36 RBC 4.93 10^6/uL (3.85-5.65) 03/06/25 11:36 Hgb 15.80 g/dL (11.27-16.99) 03/06/25 11:36 Hct 47.2 % (37-53) 03/06/25 11:36 MCV 95.7 fl (82-101) 03/06/25 11:36 MCH 32.0 pg (27-33) 03/06/25 11:36 MCHC 33.5 g/dL (30-55) 03/06/25 11:36 RDW 12.6 % (12.1-15.1) 03/06/25 11:36 Plt Count 197 10^3/cmm (157-399) 03/06/25 11:36 MPV 10.0 fL (7.4-10.4) 03/06/25 11:36 Neut % (Auto) 59.7 % 03/06/25 11:36 Lymph % (Auto) 27.1 % 03/06/25 11:36 Hamilton % (Auto) 8.2 % 03/06/25 11:36 Eos % (Auto) 3.6 % 03/06/25 11:36 Baso % (Auto) 0.9 % 03/06/25 11:36 Neut # (Auto) 5.05 10^3/uL (1.8-7.7) 03/06/25 11:36 Lymph # (Auto) 2.3 10^3/uL (0.8-4.8) 03/06/25 11:36 Hamilton # (Auto) 0.7 10^3/uL (0.2-0.9) 03/06/25 11:36 Eos # (Auto) 0.3 10^3/uL (0.0-0.8) 03/06/25 11:36 Baso # (Auto) 0.1 10^3/uL (0.0-0.1) 03/06/25 11:36 Nucleated RBC % (auto) 0 % 03/06/25 11:36 Nucleated RBCs # 0.0 /100WBC 03/06/25 11:36 Sodium 136 mmol/L (136-145) 03/06/25 11:36 Potassium 4.3 mmol/L (3.5-5.1) 03/06/25 11:36 Chloride 99 mmol/L (98-107) 03/06/25 11:36 Carbon Dioxide 29 mmol/L (22-29) 03/06/25 11:36 Anion Gap 12.3 (5-19) 03/06/25 11:36 BUN 7 mg/dL (6-20) 03/06/25 11:36 Creatinine 0.7 mg/dL (0.7-1.2) 03/06/25 11:36 GFR Calculation 126.9 mL/min (90-130) 03/06/25 11:36 Glucose 122 mg/dL (65-115) H 03/06/25 11:36 Calculated Osmolality 281 mOsm/kg (285-295) L 03/06/25 11:36 Calcium 9.1 mg/dL (8.5-10.5) 03/06/25 11:36 Total Bilirubin 0.2 mg/dL (0.15-1.2) 03/06/25 11:36 AST 14 U/L (0-40) 03/06/25 11:36 ALT 19 U/L (0-41) 03/06/25 11:36 Alkaline Phosphatase 121 U/L (40-130) 03/06/25 11:36 Total Protein 7.1 g/dL (6.6-8.7) 03/06/25 11:36 Albumin 4.1 g/dL (3.5-5.2) 03/06/25 11:36 Globulin 3.0 g/dL (1.3-4.6) 03/06/25 11:36 Urine Color Yellow (Yellow) 03/06/25 11:20 Urine Appearance Clear (CLEAR) 03/06/25 11:20 Urine pH 6.5 (5-7) 03/06/25 11:20 Ur Specific [place] 1.015 (1.005-1.030) 03/06/25 11:20 Urine Protein Neg (Negative) 03/06/25 11:20 Urine Glucose (UA) Norm (Normal) 03/06/25 11:20 Urine Ketones Negative (Negative) 03/06/25 11:20 Urine Blood 3+ (Negative) H 03/06/25 11:20 Urine Nitrate Negative (Negative) 03/06/25 11:20 Urine Bilirubin Neg (Negative) 03/06/25 11:20 Urine Urobilinogen Norm mg/dL (Negative) 03/06/25 11:20 Ur Leukocyte Esterase Negative (Negative) 03/06/25 11:20 Urine RBC 5-10 /hpf (0-2) H 03/06/25 11:20 Urine WBC None /hpf (0-5) 03/06/25 11:20 Ur Squamous Epith Cells None /hpf (0-5) 03/06/25 11:20 Amorphous Sediment Not Reportable 03/06/25 11:20 Urine Bacteria None /hpf (NONE) 03/06/25 11:20 Urine Mucus None /hpf 03/06/25 11:20 All radiology interpretation(s) finalized by discharge Discharge Plan Discharge Patient Disposition: Home Clinical Impression: Cellulitis Qualifiers: Site of cellulitis: trunk Site of cellulitis of trunk: abdominal wall Qualified Code(s): L03.311 - Cellulitis of abdominal wall Hematuria Qualifiers: Hematuria type: gross Qualified Code(s): R31.0 - Gross hematuria Condition: Stable Prescriptions: New hydrocodone-acetaminophen 5-325 mg tablet 1 tab PO Q6H PRN (Reason: pain) Qty: 7 0RF promethazine 25 mg tablet 25 mg PO Q6H PRN (Reason: nausea and vomiting) Qty: 10 0RF sulfamethoxazole-trimethoprim [Bactrim DS] 800-160 mg tablet 2 tab PO BID 7 Days Qty: 28 0RF No Action acetaminophen [Tylenol Extra Strength] 500 mg Tablet 1,000 mg PO Q6H PRN (Reason: Pain) tramadol 50 mg tablet 50 - 100 mg PO Q6H ibuprofen 600 mg tablet 600 mg PO BID hydrocodone-acetaminophen 5-325 mg tablet 1 tab PO Q6H PRN (Reason: pain) Qty: 14 0RF Discharge Orders: Discharge ED (Routine); Ordered 03/06/25 Ordered By: Rolando Albrecht Referrals: Jd Heller MD [Primary Care Provider, Internal Medicine] Patient Instructions: Opioid Safety, Pain Management Activity Restrictions/Additional Instructions: Thank you for choosing [facility] for your healthcare needs today. It is very important that you follow up as instructed or that you return to the Emergency Department should you have concerns or if your condition changes or worsens in any way. You were seen in the emergency room with complaint of blood in the urine. CT did not show any stones urinalysis did show some blood but did not show any signs of infection. You should follow-up with the urologist regarding this. As an incidental finding on your CT you were noted to have some cellulitis of the abdominal wall in the area of your previous scars. Recommend you start on oral antibiotic 2 pills twice a day for 7 days follow-up with your primary care doctor if not improving. Case management make arrangements for you to see urology Print Language: Khmer Coding Level of Care Code ED Hearing Aid Assembly Supervisor for Chente Yeager
[2025-03-06 17:37] VITALS: BP 103/79; PULSE 93; RESP 18; O2SAT 96
[2025-03-06 17:45] VITALS: RESP 16; O2SAT 96
[2025-03-06] MEDS: morphine 4 mg/mL SDV 1 mL IVP (17:45)
[2025-03-06] MEDS: ondansetron 2 mg/ML SDV 2 mL 4 MG IVP (17:46)
[2025-03-06 18:00] VITALS: BP 112/86; PULSE 91; RESP 16; O2SAT 93
[2025-03-06] MEDS: sulfamethoxazole-trimeth DS 160-800 mg Tablet 2 TAB PO (19:00)
[2025-03-06 19:18] VITALS: BP 146/93; PULSE 80; RESP 16; O2SAT 97
--- NOTE | 2025-03-08 09:44 | DCPLANNER ---
Urology referral sent to [facility]
== END 2025-03-06 19:19 | disposition home or self-care (01) ==
PROVIDERS: Physician Assistant; Emergency Provider Family Medicine; PCP Internal Medicine
DX: L03.311 Cellulitis of abdominal wall (principal); R31.0 Gross hematuria; Z87.891 Personal history of nicotine dependence
CPT/HCPCS: 36415; 74176; 80053; 81001; 85025; 96374; 96375; 99285; J2270; J2405; J9999

== ENCOUNTER 2025-08-24 12:31 | Emergency (ER) | payer MEDICAID, SELFPAY ==
[2025-08-24 12:38] VITALS: BP 159/77; PULSE 100; RESP 18; TEMP 37.3; O2SAT 98
--- OUTSIDE RECORDS SUMMARY | 2025-08-24 12:39 | XMS_ITS | Data Portability ---
Author Organization [facility] Address [address] [address] Assessment No assessment recorded. Plan of Treatment Reminders Order Date Submit Date Provider Last Modified By Organization Details Last Modified Time Details Appointments None recorded. Lab None recorded. Referral None recorded. Procedures None recorded. Surgeries None recorded. Imaging None recorded. Medication Orders Depo-Medr ol 80 mg/mL suspensio n for injection 2018 019 [email or web address] Not available 0 16:30:13 Celexa 20 mg tablet 2018 019 INTERFACE [facility], [address] [place], [address], 9 16:19:37 Depo-Medr ol 80 mg/mL suspensio n for injection 2018 019 [email or web address] Not available 0 16:30:13 Patient TargetsNo targets recorded. Patient Instructions Encounter Date Encounter Id Patient Instructions Last Modified By Organization Details Last Modified Time 02/15/2018 [id number] may return work light duty treatment plan discussed . medications and side effects reviewed. pt instructed to call office for worsening or no improvement. [email or web address] Not available 02/15/2018 15:07:13 05/12/2019 [id number] Patient instructed to take Ibuprofen 400mg 4Xs daily or 600mg 3Xs daily to enusre therapeutic effect. Patient to begin Celexa 20mg daily and RTC in two to three months for follow up medication therapy. Patient instucted to RTC sooner if symptoms worsen. Patient verbalized understanding. [email or web address] Not available 05/12/2019 17:41:36 10/04/2019 [id number] Instructed pt to return for problems [email or web address] Not available 10/04/2019 11:51:31 Reason for Referral None Reported. 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 Please review these documents and add these problems to the patient's chart manually as needed. Problem Notes None recorded. Procedures Surgical History Date Name Laterality Status Provider Name and Address Organization Details Recorded Time Appendectomy completed [facility] 10/04/2019 11:36:52 tonsilectomy/ganga oids completed [facility] 10/04/2019 11:37:00 stapedectomy completed [facility] 10/04/2019 11:37:22 Imaging Results None recorded. Procedure Notes None recorded. Medical Equipment None Reported. Allergies Allergen ID Allergen Name Allergen Category Reaction Reaction Severity Criticality Documentation Date Start Date Code Code System Note Provider Name and Address Organization Details Recorded Time 784036 lisinopri l medicatio n anaphylax is Not available Not available 10/04/2019 27161 RxNorm Silvia Sumeet [facility] 9 11:36:03 40392 No known allergy (situatio n) Not available Not available Not available Not available 01/07/2017 19957 6003 SNOMED Silvia Sumeet [facility] 9 11:36:15 Medications Name Sig Start Date Stop Date Status Note LastModified by Organization Details LastModified Time amoxicill in 500 mg capsule take 1 capsule (500 mg) by oral route every 8 hours for 10 days active Not Available Not Available No t Available hydrocodo ne 5 mg-acetam inophen 325 mg tablet TAKE 1 TABLET BY MOUTH EVERY 6 HOURS NEEDED FOR PAIN active Not Available Not Available No t Available tramadol 50 mg tablet TAKE 1 TABLET BY MOUTH EVERY 12 HOURS NEEDED FOR PAIN active Not Available Not Available No t Available amoxicill in 500 mg tablet take 1 tablet (500 mg) by oral route 3 times per day for 10 days 02/22 completed amoxicil barrett 500 mg oral tablet;R ecorded Status: Recorded on: 02/13/20 15 3:36PM;U ser: [email or web address] ;Est. Completi on: 02/23/20 15;Indic ation: Abscesse d tooth - (522.5); Printed: 02/13/20 15 Not Available Not Available Not Available Depo-Medr ol 80 mg/mL suspensio n for injection Take 1 mL by injectio n route. 09/06 completed Not Available Not Available Not Available citalopra m 20 mg tablet Take 1 tablet every day by oral route. active Not Available Not Available No t Available magnesium oxide 400 mg (241.3 mg magnesium ) tablet TAKE 1 TABLET BY MOUTH TWICE DAILY active Not Available Not Available No t Available lisinopri l 10 mg tablet take 1 tablet (10 mg) by oral route once daily for 30 days 01/25 completed lisinopr il 10 mg oral tablet;P rescribe Status: Prescrib ed on: 02/22/20 14 1:33PM;D iscontin ued Status: Disconti nued on: 01/26/20 15 1:42PM;U ser: [email or web address] ;Est. Completi on: 03/23/20 14;Indic ation: Mariah williamson l - (401.9); Pharmacy Verified : 02/22/20 14 1:33PM Not Available Not Available Not Available hydrochlo rothiazid e 25 mg tablet take 1 tablet (25 mg) by oral route once daily for 30 days 01/25 completed hydrochl orothiaz kell 25 mg oral tablet;R ecorded Status: Recorded on: 05/30/20 14 10:53AM; Disconti nued Status: Disconti nued on: 01/26/20 15 1:42PM;U ser: [email or web address];E st. Completi on: 09/27/20 14;Indic ation: Hyperten clay - (4019 ) Not Available Not Available Not Available Anusol-HC 25 mg rectal supposito ry insert 1 supposit ory (25 mg) by rectal route 2 times per day for 7 days 03/23 completed Anusol-H C 25 mg rectal supposit ory;Pres cribe Status: Prescrib ed on: 03/16/20 15 3:08PM;U ser: [email or web address];E st. Completi on: 03/23/20 15;Indic ation: Hemorrho ids - (4556 );Phar Tonny fied: 03/16/20 15 3:08PM Not Available Not Available Not Available Coumadin 10 mg tablet take 1 tablet (10 mg) by oral route once daily for 30 days 02/03 completed Coumadin 10 mg oral tablet;R ecorded Status: Recorded on: 05/11/20 13 10:50AM; Disconti nued Status: Disconti nued on: 02/04/20 14 4:15PM;U ser: [email or web address] ;Est. Completi on: 06/10/20 13;Indic ation: Thromboe mbolic Disorder - (4466 ) Not Available Not Available Not Available Naprosyn 500 mg tablet Take 1 tablet twice a day by oral route. 05/12 completed Not Available Not Available Not Available Percocet 5 mg-325 mg tablet take 1 - 2 tablets by oral route every 4-6 hours as needed for 10 days 07/12 completed Percocet Oral Tablet 5-325 mg;Recor ded Status: Recorded on: 07/02/20 10 1:32PM;U ser: [email or web address] ;Est. Completi on: 07/12/20 10;Indic ation: Pain - (16.7809 );Pres cription Date: 07/02/20 20:43:37 ;Clinica l Medicati on Id: [id number];Un ique Medicati on Id: [id number];P rescribe d: Practice Prescrib ed Medicati on Not Available Not Available Not Available ondansetr on 4 mg disintegr ating tablet DISSOLVE 1 TABLET IN MOUTH EVERY 8 HOURS NEEDED FOR NAUSEA AND VOMITING FOR 4 DAYS active Not Available Not Available No t Available Coumadin 1 mg tablet take 1 tablet (1 mg) by oral route once daily for 30 days 02/03 completed Coumadin 1 mg oral tablet;R ecorded Status: Recorded on: 06/30/20 13 12:10PM; Disconti nued Status: Disconti nued on: 02/04/20 14 4:15PM;U ser: [email or web address]; Est. Completi on: 08/29/20 13 Not Available Not Available Not Available hydrocodo ne-acetam inophen 02/15 completed hydrocod one-acet aminophe n Oral;Rec orded Status: Recorded on: 10/06/20 12 11:08AM; User: Maged rescript ion Date: 10/06/20 12 20:15:56 ;Clinica l Medicati on Id: [id number];Un ique Medicati on Id: [id number];Pres cribed: Outside Prescrib ed Medicati on Not Available Not Available Not Available Coumadin 05/11 completed Coumadin Oral;Rec orded Status: Recorded on: 04/10/20 13 4:48PM;D iscontin ued Status: Disconti nued on: 05/11/20 13 10:50AM; User: [email or web address] Not Available Not Available Not Available tramadol 02/15 completed Tramadol ;Recorde d Status: Recorded on: 07/02/20 10 11:23AM; User: robe Leavitt on: - (-5);Pre scriptio n Date: 07/02/20 10 20:43:37 ;Clinica l Medicati on Id: [id number];Un ique Medicati on Id: -5;Presc ribed: Outside Prescrib ed Medicati on Not Available Not Available Not Available albuterol sulfate 01/25 completed albutero l sulfate Inhalati on;Recor ded Status: Recorded on: 04/10/20 13 4:48PM;D iscontin ued Status: Disconti nued on: 01/26/20 15 1:42PM;U ser: [email or web address] Not Available Not Available Not Available atenolol 02/15 completed atenolol Oral;Rec orded Status: Recorded on: 10/06/20 12 11:09AM; User: [email or web address];P rescript ion Date: 10/06/20 12 20:15:56 ;Clinica l Medicati on Id: [id number];Un ique Medicati on Id: [id number];Pr escribed : Outside Prescrib ed Medicati on Not Available Not Available Not Available Clindamyc in 02/15 completed Clindamy boni;Todd rded Status: Recorded on: 07/02/20 10 11:23AM; User: sunshine; Peterti on: - (-5);Pre scriptio n Date: 07/02/20 10 20:43:37 ;Clinica l Medicati on Id: [id number];Un ique Medicati on Id: -5;Presc ribed: Outside Prescrib ed Medicati on Not Available Not Available Not Available ProAir HFA 90 mcg/actua tion aerosol inhaler inhale 1 puff (90 mcg) by inhalati on route every 6 hours as needed 2019 active ProAir HFA 90 mcg/actu ation inhalati on HFA aerosol inhaler; Prescrib e Status: Prescrib ed on: 07/20/20 15 4:34PM;U ser: [email or web address]; Est. Completi on: 09/18/20 15;Indic ation: Bronchos pasm Preventi on - ();Phar Tonny fied: 07/20/20 15 4:34PM Not Available Not Available Not Available Vitals Date Recorded Body weight Heart rate Respiratory rate Body temperature Body mass index (BMI) Body height Systolic And Diastolic Provider Name and Address Organization Details Last Updated DateTime 8 095152. 23 g 84 /min 18 /min 98.4 [degF] 37.5 kg/m2 185.42 cm 130/72 mm[Hg] Jane Rodriguez [facility] 8 14:10:59 Date Recorded Body weight Heart rate Respiratory rate Body temperature Systolic And Diastolic Provider Name and Address Organization Details Last Updated DateTime 9 352798. 89 g 78 /min 18 /min 98 [degF] 148/86 mm[Hg] Saima Tang [facility] 9 14:59:52 Date Recorded Heart rate Respiratory rate Body temperature Body weight Body mass index (BMI) Body height Oxygen saturation Oxygen saturation in Arterial blood by Pulse oximetry Systolic And Diastolic Provider Name and Address Organization Details Last Updated DateTime 9 98 /min 20 /min 97.8 [degF] 725497. 89 g 43.4 kg/m2 185.42 cm 98 % 98 % 128/82 mm[Hg] Silvia Fay [facility] 9 11:34:48 Social History Question Answer Notes LastModified by Organizat ion Details LastModified Time Tobacco Smoking Status Current Every Day Smoker Jane Michael garibay [facility] 02/15/2018 14:12:51 How Often Do You Need To Have Someone Help You When You Read Instructions, Pamphlets, Or Other Written Material From Your Doctor Or Pharmacy? 1-Never Information not available 02/15/2018 What Was The Date Of Your Most Recent Tobacco Screening? 05/12/2019 Information n ot available 05/25/2019 How Much Tobacco Do You Smoke? 0.5 PPD Information not available 02/15/2018 Sex: Unknown Functional Status None recorded. Mental Status None recorded. Family History Relationship Description Onset Age of this Age Resolved Age Notes LastModified by Organization Details LastModified Time Mother Hypertensive disorder [email or web address] Not available 2017 14:12:32 Medical History No medical history recorded. Immunizations Vaccine Type Date Status Note Provider Nam e and Address Organization Details Recorded Time Influenza, split virus, quadrivalent, PF 10/17/2020 completed Stacie garibay [facility] 10/17/2020 11:23:48 Influenza, split virus, quadrivalent, PF 09/04/2021 completed Onofre garibay [facility] 09/04/2021 15:15:47 Past Encounters Encounter ID Performer Location Encounter Start Date Encounter Closed Date Diagnosis/Indication Diagnosis SNOMED-CT Code Diagnosis ICD10 Code Diagnosis IMO Codes Diagnosis Note [id number] Marvin Levine MD [address] [address] 02/15/2018 14:05:20 02/15/2018 14:51:31 Muscle pain 36918052 M79.1 [id number] Marvin Levine MD [address] [address] 05/12/2019 14:26:58 05/12/2019 15:50:08 Pain of right shoulder joint 4125690603 9378397 M25.511 Depressive disorder 3548 9007 F32.9 [id number] Sandhya Nash [employer] [address] [address] 10/04/2019 10:56:54 10/04/2019 12:00:01 Low back pain 747768534 M54.5 [id number] Sandhya Nash [employer] [address] [address] 10/17/2020 11:05:06 11/02/2020 03:55:11 [id number] Sandhya Nash [employer] [address] [address] 09/04/2021 14:30:11 09/09/2021 15:14:49 Influenza vaccine needed 7413204008 106 Z23 Health Concerns Section Related Observation LastModified by Organization Detai ls LastModified Time None Recorded Concern Status LastModified by Organization Details LastModified Time None Recorded Advance Directives Directive None Recorded Payers Insurance Date Sequence Insurance Name Policy Number Policy Sosa Covered Member ID Sosa Member ID Guarantor Name 10/17/2020 1 *SELF PAY* Mohamud Meyers 10/17/2020 SLIDING FEE SCHEDULE - DISCOUNT Nati Meyers 10/17/2020 1 *SELF PAY* Mohamud Meyers Notes Date Note Type Note Provider Name and Address Organization Details Recorded Time 02/15/2018 text/html ROS as noted in the HPI States right shoulder injury about 3 week and went to ER Thursday. also would like a work release today. pt moving furniture 2 weeks ago pain in shoulder since. RAMON Escamilla - [facility] 05/12/2019 18:44:16 05/12/2019 text/html ROS as noted in the HPI back pain, shoulder pain and discuss depression Patient presents with c/o right shoulder pain d/t past injury, lower back arthritic pain, and depression. States his place of work closed down a few months ago and he hasn't had a job since. Denies SI/HI just states he is sad. RAMON Escamilla [facility] 05/12/2019 18:43:17 10/04/2019 text/html pt c/o back pain for past week. He states it started when he was walking Does not radiate down his legs RAMON Vences [facility] 10/04/2019 12:30:31
--- NOTE | 2025-08-24 13:12 | W.ED.BACK ---
HPI - Back Pain/Injury General: Chief Complaint: Back Pain/Injury Stated Complaint: low back pain Time Seen by Provider: 08/24/25 13:03 History of Present Illness: 35-year-old male presents emergency room complaining of low back pain. This has been chronic he has been seen by his primary care doctor several times. They had evaluated him for kidney problems evidently. He refers most of his pain to the lower lumbar region at the L5-S1 L4-5 level. It radiates out to the upper portion of the SI joints he does not have any radiating pain into his lower extremities. No saddle paresthesias no fecal incontinence no urinary retention. He has not had any trauma. He tried [id number] medications 40s also been on hydrocodone and tramadol. Associated symptoms: Deny abdominal pain, chills, dysuria, fever(s) or urinary urgency Related Data Home Medications ?Medication ?Instructions ?Recorded ?Confirmed acetaminophen 500 mg tablet 1,000 mg PO Q6H PRN Pain 01/10/21 02/08/25 (Tylenol Extra Strength) tramadol 50 mg tablet 50 - 100 mg PO Q6H 12/07/24 02/08/25 Previous Rx's ?Medication ?Instructions ?Recorded hydrocodone 5 mg-acetaminophen 325 1 tab PO Q6H PRN pain #14 tabs 02/08/25 mg tablet hydrocodone 5 mg-acetaminophen 325 1 tab PO Q6H PRN pain #7 tabs 03/06/25 mg tablet promethazine 25 mg tablet 25 mg PO Q6H PRN nausea and 03/06/25 vomiting #10 tabs diclofenac sodium 75 mg 75 mg PO Q12H PRN pain #20 tabs 08/24/25 tablet,delayed release methylprednisolone 4 mg tablets in See Rx Instructions PO .COMPLEX 08/24/25 a dose pack (Medrol (Ciro)) #21 ea tizanidine 4 mg tablet 4 mg PO Q6H PRN muscle spasticity 08/24/25 #20 tabs Allergies Allergy/AdvReac Type Severity Reaction Status Date / Time lisinopril Allergy ALGY-Anaphy Verified 03/06/25 11:03 laxis beans Allergy ALGY-Anaphy Uncoded 03/06/25 11:03 laxis Review of Systems Const: Denies: fever(s) or chills Card: Denies: chest pain Resp: Denies: dyspnea GI: Denies: abdominal pain : Denies: dysuria, urinary frequency or urinary urgency Musc: Denies: neck pain or back pain Skin/Breast: Denies: rash PFSH ED PFSH: Medical History History of MRSA infection Sepsis Macrocytic anemia Staphylococcal infection of skin Morbid obesity with BMI of 45.0-49.9, adult Bacteremia Tooth infection Asthma Diverticulitis of colon with perforation Peritonitis, acute generalized Surgical History History of tonsillectomy History of colostomy 2020 History of appendectomy Family History Father Cancer Lung cancer, smoker in his late 40s Mother No problems noted. Social History Smoking and tobacco/nicotine status: former use of tobacco/nicotine Alcohol intake: current Alcohol intake frequency: few times a month Substance/Drug Use: never Physical Exam Const: GENERAL APPEARANCE: cooperative ORIENTATION/CONSCIOUSNESS: Yes awake, Yes oriented to person, Yes oriented to place and Yes oriented to time HENMT: COMMON NORMALS: normocephalic, atraumatic and hearing grossly normal bilaterally HEAD & SCALP: normocephalic and atraumatic Resp: COMMON NORMALS: normal respiratory effort, No retractions, No use of accessory muscles and clear to auscultation bilaterally AUSCULTATION: clear to auscultation bilaterally Cardio: COMMON NORMALS: regular rate, regular rhythm and No murmurs present (Cardio) RATE: regular rate RHYTHM: regular rhythm Extremity: COMMON NORMALS: normal to inspection, capillary refill normal, no clubbing, cyanosis or edema, no calf tenderness and no pedal edema Neuro: SENSORIUM/ORIENTATION: Yes oriented to person, Yes oriented to place and Yes oriented to time OTHER: Neurovascular intact lower extremity straight leg using negative. Dorsum plantarflexion strength normal sensation normal deep tendon reflexes +2/4 patellar tendons +1/4 at the Achilles tendon. Skin: COMMON NORMALS: no rashes or lesions noted GENERAL SKIN EXAM: no rashes or lesions noted Course Vital Signs: Vital signs: Vital Signs Temperature 99.1 F 08/24/25 12:38 Pulse Rate 96 08/24/25 15:48 Respiratory Rate 18 08/24/25 12:38 Blood Pressure 159/77 08/24/25 12:38 Pulse Oximetry 96 08/24/25 15:48 Oxygen Delivery Me thod Room Air 08/24/25 12:38 MDM - Back Pain/Injury Medical Decision Making No red flag symptoms on exam or history. Will discharge home diclofenac steroid taper and tizanidine. Follow-up with primary care may need to be referred back to physical therapy if symptoms persist or change may need further evaluation. Medical Records I reviewed the patient's medical records. Labs I reviewed the patient's lab results. No radiology studies performed this visit Discharge Plan Discharge Patient Disposition: Home Clinical Impression: Strain of lumbar region Condition: Stable Prescriptions: New tizanidine 4 mg tablet 4 mg PO Q6H PRN (Reason: muscle spasticity) Qty: 20 0RF Rx Instructions: do not exceed 3 doses per 24 hrs diclofenac sodium 75 mg tablet,delayed release (DR/EC) 75 mg PO Q12H PRN (Reason: pain) Qty: 20 0RF methylprednisolone [Medrol (Ciro)] 4 mg tablets,dose pack See Rx Instructions .ROUTE .COMPLEX Qty: 21 0RF Rx Instructions: orally per package directions Discontinued ibuprofen 600 mg tablet 600 mg PO BID No Action acetaminophen [Tylenol Extra Strength] 500 mg Tablet 1,000 mg PO Q6H PRN (Reason: Pain) tramadol 50 mg tablet 50 - 100 mg PO Q6H hydrocodone-acetaminophen 5-325 mg tablet 1 tab PO Q6H PRN (Reason: pain) Qty: 14 0RF hydrocodone-acetaminophen 5-325 mg tablet 1 tab PO Q6H PRN (Reason: pain) Qty: 7 0RF promethazine 25 mg tablet 25 mg PO Q6H PRN (Reason: nausea and vomiting) Qty: 10 0RF Discharge Orders: Discharge ED (Routine); Ordered 08/24/25 Ordered By: Rolando Albrecht Referrals: Jd Heller MD [Primary Care Provider, Internal Medicine] Discharge Diet: Usual diet Discharge Activity: Limit activity as instructed Patient Instructions: Back Pain (ED), Lower Back Exercises (ED), Opioid Safety, Pain Management, Patient Portal & Jann Instructions Activity Restrictions/Additional Instructions: Thank you for choosing [facility] for your healthcare needs today. It is very important that you follow up as instructed or that you return to the Emergency Department should you have concerns or if your condition changes or worsens in any way. Emergency department visits are focused on emergent conditions, in some cases you may require further evaluation on an outpatient basis. You were seen in the emergency room with complaints of low back pain. On your exam there is no sign of nerve impingement at this time. You did have improvement with the medications given in the emergency room will discharge you home with steroid taper. You are also given diclofenac and tizanidine to use as needed. Case management will make you a follow up appointment with Dr. Pickett. (Please note that included in your discharge packet is information concerning opioid safety and pain management. This information is given to all patients were discharged from the ER regardless of their discharge diagnosis or the medicines they usually take or are prescribed.) Print Language: Norwegian Coding Level of Care Code ED Personnel Administrator for Chente Yeager
[2025-08-24] MEDS: methylPREDNISolone sod succ 125 mg/2 mL INJ IVP (13:56)
[2025-08-24] MEDS: morphine 4 mg/mL SDV 1 mL IVP (13:57)
[2025-08-24] MEDS: orphenadrine 30 mg/mL Inj 2 mL 60 MG IM (13:58)
[2025-08-24 15:48] VITALS: PULSE 96; O2SAT 96
--- NOTE | 2025-08-25 09:02 | DCPLANNER ---
messaged ortho for er f/u
== END 2025-08-24 15:49 | disposition home or self-care (01) ==
PROVIDERS: Emergency Provider Family Medicine; PCP Internal Medicine
DX: S39.012A Strain of muscle, fascia and tendon of lower back, initial encounter (principal); Z87.891 Personal history of nicotine dependence; X58.XXXA Exposure to other specified factors, initial encounter
CPT/HCPCS: 96372; 96374; 96375; 99284; J1885; J2270; J2360; J2919

== ENCOUNTER → 2025-09-14 13:04 | Outpatient (BNVA) | payer MEDICAID, SELFPAY | PROVIDERS: PCP Internal Medicine; Visit Provider Orthopaedic Surgery | DX: M51.360 Other intervertebral disc degeneration, lumbar region with discogenic back pain only (principal) | CPT/HCPCS: 72110 ==

== ENCOUNTER → 2025-10-24 14:29 | Outpatient (BNVA) | payer MEDICAID, SELFPAY | PROVIDERS: PCP Internal Medicine; Visit Provider Orthopaedic Surgery | DX: M16.11 Unilateral primary osteoarthritis, right hip (principal); M54.50 Low back pain, unspecified; M54.2 Cervicalgia; M54.12 Radiculopathy, cervical region | CPT/HCPCS: 72050; 73502 ==